=== PATIENT | female | born 2000 | race Hispanic/Latino ===

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

== ENCOUNTER 2018-06-10 15:20 | Emergency (ER) | payer BC ==
[~2018-06-10] VITALS: Ht 160 cm; Wt 92.1 kg
--- OUTSIDE RECORDS SUMMARY | 2018-06-10 15:26 | XMS REPORT ---
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 Role Phone Diogenes Peres PCP Diogenes [...] use as directed Dx: e10.65 FreeStyle Ayana [place] miscellaneous misc 09/09/2017 use as directed Dx: e10.65 FreeStyle Ayana Sensor miscellaneous kit 09/20/2017 APPLY SENSOR EVERY 10 DAYS DIRECTED Name Start Date Expiration Date SIG Comments [...] N/A History Of Immunizations Name Date Admin [facility] Name [facility] Code Trade Name Lot# Route Inj Vis Given Vis Pub CVX Tdap 09/21/2010 sanofi pasteur PMC ADACEL [id number] Intramuscular Left Arm 09/21/2010 09/21/2007 115 HepB [...] 09/16/2014 [employer] MSD GARDASIL [id number] Intramuscular Left Deltoid 09/16/2014 06/29/2012 62 Meningococcal 09/16/2014 sanofi pasteur PMC MENACTRA [id number] Intramuscular Right Deltoid 09/16/2014 11/26/2010 114 Influenza 11/25/2014 sanofi pasteur PMC FLUZONE [id number] Intramuscular Left Deltoid 11/25/2014 09/19/2014 141 HPV 11/25/2014 [employer] MSD GARDASIL [id number] Intramuscular Right Deltoid 11/25/2014 06/29/2012 62 HPV 06/11/2015 [employer] MSD GARDASIL [id number] Intramuscular Left Deltoid 06/11/2015 06/29/2012 62 History [...] Group Number Start Date [employer]BS [employer] [facility] [id number] Friday, 2014 History of Encounters Visit Date Visit Type Provider 11/29/2016 Office visit Diogenes Cyrte DO 03/28/2016 Office visit Diogenes Ja DO 02/26/2016 Office visit Diogenes Ja DO 01/13/2016 Office visit Roger Rockwell OIL HEATERMAN 12/21/2015 Office visit Adelita Elliott OIL HEATERMAN 11/23/2015 Nurse visit Diogenes Cyrte DO 10/12/2015 Office visit Diogenes Peres DO 08/31/2015 Nurse visit Diogenes Peres DO 06/11/2015 Office visit Diogenes Peres DO 05/19/2015 Office visit Diogenes Ja DO 03/04/2015 Office visit Diogenes Ja DO 11/25/2014 Office visit Diogenes Peres DO 09/16/2014 Office visit 09/16/2014 Office visit Adelita Elliott OIL HEATERMAN 07/11/2014 Nurse visit Susan Mayo OIL HEATERMAN 04/21/2014 Office visit Diogenes Peres DO 04/11/2014 Nurse visit Diogenes Peres DO 04/04/2014 Office visit Diogenes Ja DO 03/24/2014 Office visit Diogenes Peres DO 03/05/2014 Office visit Adelita Elliott OIL HEATERMAN 02/14/2014 Office visit Randal Beltrán MD 02/04/2014 Office visit Diogenes Peres DO 01/24/2014 [facility] Liz Francisco MD 01/23/2014 Nurse visit Diogenes Peres DO 11/13/2013 Nurse visit Adelita Elliott OIL HEATERMAN 10/07/2013 Office visit Adelita Elliott OIL HEATERMAN 09/30/2013 Office visit Diogenes Peres DO 05/23/2013 Office visit Diogenes Peres DO 04/22/2013 Office visit Diogenes Peres DO 09/25/2012 Office visit Diogenes Peres DO 09/28/2011 Office visit Adelita Elliott OIL HEATERMAN 09/21/2010 Office visit Adelita Elliott OIL HEATERMAN 12/15/2008 Office visit Diogenes Peres DO
--- OUTSIDE RECORDS SUMMARY | 2018-06-10 15:42 | XMS REPORT | Continuity of Care Document ---
Author Organization Unknown Address Unknown Allergies Active Description Code Type Severity Reaction Onset Reported/Identified Relationship to Patient Clinical Status Yes No Known Allergies [id number] N /A N/A Yes No Allergy Information Available [id number] Drug Allergy Unknown N/A 2016 Yes No Known Drug Allergies [id number] Drug Allergy Unknown N/A 09/07/2017 Medications There is no data. Problems Date Dx Coded Attending Type Code Diagnosis Diagnosed By 12/14/2016 VIDA FIGUEROA DO Ot E10.9 TYPE 1 DIABETES MELLITUS WITHOUT COMPLIC 12/14/2016 VIDA FIGUEROA DO Ot F10.129 ALCOHOL ABUSE WITH INTOXICATION, UNSPECI 12/14/2016 VIDA FIGUEROA DO Ot F10.929 ALCOHOL USE, UNSPECIFIED WITH INTOXICATI 12/14/2016 VIDA FIGUEROA DO Ot Z79.4 CONVERTIBLE SOFA BEDSPRING TESTER (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 OF INSULIN 09/07/2017 DELMY LARA MD Ot E10.10 TYPE 1 DIABETES MELLITUS WITH KETOACIDOS 09/07/2017 DELMY LARA MD Ot R11.2 NAUSEA WITH VOMITING, UNSPECIFIED 09/07/2017 DELMY LARA MD Ot R19.7 DIARRHEA, UNSPECIFIED 09/07/2017 DELMY LARA MD Ot Z79.4 CONVERTIBLE SOFA BEDSPRING TESTER (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 OF INSULIN 09/07/2017 DELMY LARA MD Ot Z91.19 PATIENT'S NONCOMPLIANCE W [facility] TR 09/09/2017 DELMY LARA MD Ot E10.10 TYPE 1 DIABETES MELLITUS WITH KETOACIDOS 09/09/2017 DELMY LARA MD Ot R11.2 NAUSEA WITH VOMITING, UNSPECIFIED 09/09/2017 DELMY LARA MD Ot R19.7 DIARRHEA, UNSPECIFIED 09/09/2017 DELMY LARA MD Ot Z79.4 [facility] (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 OF INSULIN 09/09/2017 DELMY LARA MD Ot Z91.19 PATIENT'S NONCOMPLIANCE W [facility] MEDICAL TR 11/11/2017 JESSIE, CHALO Pamela [employer] Ot E10.9 TYPE 1 DIABETES MELLITUS WITHOUT COMPLIC 11/11/2017 JESSIE, CHALO L [employer] Ot N92.6 IRREGULAR MENSTRUATION, UNSPECIFIED 11/11/2017 JESSIE, CHALO L [employer] Ot E10.9 TYPE 1 DIABETES MELLITUS WITHOUT COMPLIC 11/11/2017 JESSIE, CHALO L [employer] Ot N92.6 IRREGULAR MENSTRUATION, UNSPECIFIED 11/22/2017 JESSIE, CHALO L [employer] Ot E10.9 TYPE 1 DIABETES MELLITUS WITHOUT COMPLIC 11/22/2017 JESSIE, CHALO L [employer] Ot N92.6 IRREGULAR MENSTRUATION, UNSPECIFIED Procedures There is no data. Results Test Result Range Complete blood count (CBC) with automated white blood cell (WBC) differential - 12/14/16 01:05 Blood leukocytes automated count (number/volume) 11.4 10*3/uL 4.3-11.0 Blood erythrocytes automated count (number/volume) 5.14 10*6/uL 4.35-5.85 Venous blood hemoglobin measurement (mass/volume) 14.9 g/dL 11.5-16.0 Blood hematocrit (volume fraction) 43 % 35-52 Automated erythrocyte mean corpuscular volume 84 [foz_us] 80-99 Automated erythrocyte mean corpuscular hemoglobin (mass per erythrocyte) 29 pg 25-34 Automated erythrocyte mean corpuscular hemoglobin concentration measurement ( mass/volume) 35 g/dL 32-36 Automated erythrocyte distribution width ratio 12.3 % 10.0-14.5 Automated blood platelet count (count/volume) 412 10*3/uL 130-400 Automated blood platelet mean volume measurement 10.1 [foz_us] 7.4-10.4 Automated blood neutrophils/100 leukocytes 71 % 42-75 Automated blood lymphocytes/100 leukocytes 19 % 12-44 Blood monocytes/100 leukocytes 10 % 0-12 Automated blood eosinophils/100 leukocytes 0 % 0-10 Automated blood basophils/100 leukocytes 0 % 0-10 Blood neutrophils automated count (number/volume) 8.1 10*3 1.8-7.8 Blood lymphocytes automated count (number/volume) 2.1 10*3 1.0-4.0 Blood monocytes automated count (number/volume) 1.1 10*3 0.0-1.0 Automated eosinophil count 0.1 10*3/uL 0.0-0.3 Automated blood basophil count (count/volume) 0.0 10*3/uL 0.0-0.1 Serum or plasma choriogonadotropin ( test) detection - 12/14/16 01:05 Serum or plasma choriogonadotropin ( test) detection NEGATIVE NEGATIVE Comprehensive metabolic panel - 12/14/16 01:05 Serum or plasma sodium measurement (moles/volume) 140 mmol/L 135-145 Serum or plasma potassium measurement (moles/volume) 3.8 mmol/L 3.6-5.0 Serum or plasma chloride measurement (moles/volume) 103 mmol/L 98-107 Carbon dioxide 21 mmol/L 21-32 Serum or plasma anion gap determination (moles/volume) 16 mmol/L 5-14 Serum or plasma urea nitrogen measurement (mass/volume) 8 mg/dL 7-18 Serum or plasma creatinine measurement (mass/volume) 1.21 mg/dL 0.60-1.30 Serum or plasma urea nitrogen/creatinine mass ratio 7 NRG Serum or plasma creatinine measurement with calculation of estimated glomerular filtration rate 58 NRG Serum or plasma glucose measurement (mass/volume) 494 mg/dL 70-105 Serum or plasma calcium measurement (mass/volume) 9.3 mg/dL 8.5-10.1 Serum or plasma total bilirubin measurement (mass/volume) 0.2 mg/dL 0.1-1.0 Serum or plasma alkaline phosphatase measurement (enzymatic activity/volume) 98 U/L 60-350 Serum or plasma aspartate aminotransferase measurement (enzymatic activity/ volume) 13 U/L 5-34 Serum or plasma alanine aminotransferase measurement (enzymatic activity/volume ) 14 U/L 0-55 Serum or plasma protein measurement (mass/volume) 7.7 g/dL 6.4-8.2 Serum or plasma albumin measurement (mass/volume) 3.9 g/dL 3.2-4.5 Serum or plasma amylase measurement (enzymatic activity/volume) - 12/14/16 01: 05 Serum or plasma amylase measurement (enzymatic activity/volume) 71 U /L 25-125 Lipase - 12/14/16 01:05 Lipase 16 U/L 8-78 Serum or plasma ethanol measurement (mass/volume) - 12/14/16 01:05 Serum or plasma ethanol measurement (mass/volume) 176 mg/dL <10 Complete urinalysis with reflex to culture - 12/14/16 01:46 Urine color determination YELLOW NRG Urine clarity determination CLEAR NRG Urine pH measurement by test strip 6 5-9 Specific gravity of urine by test strip 1.010 1.016- 1.022 Urine protein assay by test strip, semi-quantitative NEGATIVE NEGATIVE Urine glucose detection by automated test strip 4+ NEGATIVE Erythrocytes detection in urine sediment by light microscopy NEGATIVE NEGATIVE Urine ketones detection by automated test strip NEGATIVE NEGATIVE Urine nitrite detection by test strip NEGATIVE NEGATIVE Urine total bilirubin detection by test strip NEGATIVE NEGATIVE Urine urobilinogen measurement by automated test strip (mass/volume) NORMAL NORMAL Urine leukocyte esterase detection by dipstick NEGATIVE NEGATIVE Automated urine sediment erythrocyte count by microscopy (number/high power field) NONE NRG Automated urine sediment leukocyte count by microscopy (number/high power field ) NONE NRG Bacteria detection in urine sediment by light microscopy TRACE NRG Squamous epithelial cells detection in urine sediment by light microscopy 5-10 NRG Crystals detection in urine sediment by light microscopy NONE NRG Casts detection in urine sediment by light microscopy NONE NRG Mucus detection in urine sediment by light microscopy NEGATIVE NRG Complete urinalysis with reflex to culture NO NRG Urine drug screening test - 12/14/16 01:46 Urine phencyclidine detection by screening method NEGATIVE NEGATIVE Urine benzodiazepines detection by screening method NEGATIVE NEGATIVE Urine cocaine detection NEGATIVE NEGATIVE Urine amphetamines detection by screening method NEGATIVE NEGATIVE Urine methamphetamine detection by screening method NEGATIVE NEGATIVE Urine cannabinoids detection by screening method NEGATIVE NEGATIVE Urine opiates detection by screening method NEGATIVE NEGATIVE Urine barbiturates detection NEGATIVE NEGATIVE Screening urine tricyclic antidepressants detection NEGATIVE NEGATIVE Urine methadone detection by screening method NEGATIVE NEGATIVE Urine oxycodone detection NEGATIVE NEGATIVE Urine propoxyphene detection NEGATIVE NEGATIVE Capillary blood glucose measurement by glucometer (mass/volume) - 12/14/16 02: 48 Capillary blood glucose measurement by glucometer (mass/volume) 229 mg/dL 70-110 Complete urinalysis with reflex to culture - 09/07/17 19:00 Urine color determination YELLOW NRG Urine clarity determination CLEAR NRG Urine pH measurement by test strip 5 5-9 Specific gravity of urine by test strip 1.015 1.016- 1.022 Urine protein assay by test strip, semi-quantitative NEGATIVE NEGATIVE Urine glucose detection by automated test strip 4+ NEGATIVE Erythrocytes detection in urine sediment by light microscopy NEGATIVE NEGATIVE Urine ketones detection by automated test strip 4+ NEGATIVE Urine nitrite detection by test strip NEGATIVE NEGATIVE Urine total bilirubin detection by test strip NEGATIVE NEGATIVE Urine urobilinogen measurement by automated test strip (mass/volume) NORMAL NORMAL Urine leukocyte esterase detection by dipstick NEGATIVE NEGATIVE Automated urine sediment erythrocyte count by microscopy (number/high power field) NONE NRG Automated urine sediment leukocyte count by microscopy (number/high power field ) NONE NRG Bacteria detection in urine sediment by light microscopy NONE NRG Squamous epithelial cells detection in urine sediment by light microscopy 0-2 NRG Crystals detection in urine sediment by light microscopy NONE NRG Casts detection in urine sediment by light microscopy NONE NRG Mucus detection in urine sediment by light microscopy NEGATIVE NRG Complete urinalysis with reflex to culture NO NRG Urine beta human chorionic gonadotropin (hCG) measurement - 09/07/17 19:00 Urine beta human chorionic gonadotropin (hCG) measurement NEGATIVE NEGATIVE Capillary blood glucose measurement by glucometer (mass/volume) - 09/07/17 19: 06 Capillary blood glucose measurement by glucometer (mass/volume) 580 mg/dL 70-110 Complete blood count (CBC) with automated white blood cell (WBC) differential - 09/07/17 19:35 Blood leukocytes automated count (number/volume) 11.8 10*3/uL 4.3-11.0 Blood erythrocytes automated count (number/volume) 4.62 10*6/uL 4.35-5.85 Venous blood hemoglobin measurement (mass/volume) 14.0 g/dL 11.5-16.0 Blood hematocrit (volume fraction) 41 % 35-52 Automated erythrocyte mean corpuscular volume 88 [foz_us] 80-99 Automated erythrocyte mean corpuscular hemoglobin (mass per erythrocyte) 30 pg 25-34 Automated erythrocyte mean corpuscular hemoglobin concentration measurement ( mass/volume) 34 g/dL 32-36 Automated erythrocyte distribution width ratio 13.1 % 10.0-14.5 Automated blood platelet count (count/volume) 470 10*3/uL 130-400 Automated blood platelet mean volume measurement 10.4 [foz_us] 7.4-10.4 Automated blood neutrophils/100 leukocytes 74 % 42-75 Automated blood lymphocytes/100 leukocytes 22 % 12-44 Blood monocytes/100 leukocytes 4 % 0-12 Automated blood eosinophils/100 leukocytes 0 % 0-10 Automated blood basophils/100 leukocytes 0 % 0-10 Blood neutrophils automated count (number/volume) 8.7 10*3 1.8-7.8 Blood lymphocytes automated count (number/volume) 2.6 10*3 1.0-4.0 Blood monocytes automated count (number/volume) 0.4 10*3 0.0-1.0 Automated eosinophil count 0.0 10*3/uL 0.0-0.3 Automated blood basophil count (count/volume) 0.0 10*3/uL 0.0-0.1 Hemoglobin A1c - 09/07/17 19:35 Blood hemoglobin A1C measurement (mass/volume) 9.9 % 4.0- 5.6 MEAN BLOOD GLUCOSE 237 % <=126 Comprehensive metabolic panel - 09/07/17 20:11 Serum or plasma sodium measurement (moles/volume) 137 mmol/L 135-145 Serum or plasma potassium measurement (moles/volume) 3.5 mmol/L 3.6-5.0 Serum or plasma chloride measurement (moles/volume) 101 mmol/L 98-107 Carbon dioxide 8 mmol/L 21-32 Serum or plasma anion gap determination (moles/volume) 28 mmol/L 5-14 Serum or plasma urea nitrogen measurement (mass/volume) 13 mg/dL 7-18 Serum or plasma creatinine measurement (mass/volume) 1.18 mg/dL 0.60-1.30 Serum or plasma urea nitrogen/creatinine mass ratio 11 NRG Serum or plasma creatinine measurement with calculation of estimated glomerular filtration rate 59 NRG Serum or plasma glucose measurement (mass/volume) 532 mg/dL 70-105 Serum or plasma calcium measurement (mass/volume) 9.6 mg/dL 8.5-10.1 Serum or plasma total bilirubin measurement (mass/volume) 0.5 mg/dL 0.1-1.0 Serum or plasma alkaline phosphatase measurement (enzymatic activity/volume) 88 U/L 40-136 Serum or plasma aspartate aminotransferase measurement (enzymatic activity/ volume) 17 U/L 5-34 Serum or plasma alanine aminotransferase measurement (enzymatic activity/volume ) 18 U/L 0-55 Serum or plasma protein measurement (mass/volume) 7.9 g/dL 6.4-8.2 Serum or plasma albumin measurement (mass/volume) 4.1 g/dL 3.2-4.5 Whole blood basic metabolic panel - 09/07/17 20:11 Serum or plasma sodium measurement (moles/volume) 136 mmol/L 135-145 Serum or plasma potassium measurement (moles/volume) 3.5 mmol/L 3.6-5.0 Serum or plasma chloride measurement (moles/volume) 101 mmol/L 98-107 Serum or plasma urea nitrogen measurement (mass/volume) 13 mg/dL 7-18 Serum or plasma creatinine measurement (mass/volume) 1.14 mg/dL 0.60-1.30 Serum or plasma urea nitrogen/creatinine mass ratio 11 NRG Serum or plasma creatinine measurement with calculation of estimated glomerular filtration rate > NRG Serum or plasma calcium measurement (mass/volume) 9.5 mg/dL 8.5-10.1 Arterial blood gas measurement - 09/07/17 21:04 Blood pCO2 21 mm[Hg] 35-45 Blood pO2 107 mm[Hg] 79-93 Arterial blood bicarbonate measurement (moles/volume) 9 mmol/L 23-27 Arterial blood base excess by calculation -16.8 mmol/L - 2.5-2.5 Arterial blood oxygen saturation measurement 99 % 94-100 * Inhaled oxygen flow rate ROOM AIR NRG Arterial blood pH measurement with patient temperature correction 7.26 7.37-7.43 Arterial blood carbon dioxide, total measurement (moles/volume) 9.8 mmol/L 21.0-31.0 Body site RIGHT RADIAL NRG Assessment of wrist artery patency prior to arterial puncture POSITIVE NRG Setting of ventilation mode NO NRG Measurement of body temperature 97.6 NRG Capillary blood glucose measurement by glucometer (mass/volume) - 09/07/17 22: 07 Capillary blood glucose measurement by glucometer (mass/volume) 83 mg/dL 70-110 Whole blood basic metabolic panel - 09/07/17 22:23 Serum or plasma sodium measurement (moles/volume) 142 mmol/L 135-145 Serum or plasma potassium measurement (moles/volume) 3.8 mmol/L 3.6-5.0 Serum or plasma chloride measurement (moles/volume) 107 mmol/L 98-107 Carbon dioxide 17 mmol/L 21-32 Serum or plasma anion gap determination (moles/volume) 18 mmol/L 5-14 Serum or plasma urea nitrogen measurement (mass/volume) 10 mg/dL 7-18 Serum or plasma creatinine measurement (mass/volume) 0.85 mg/dL 0.60-1.30 Serum or plasma urea nitrogen/creatinine mass ratio 12 NRG Serum or plasma creatinine measurement with calculation of estimated glomerular filtration rate > NRG Serum or plasma glucose measurement (mass/volume) 73 mg/dL 70-105 Serum or plasma calcium measurement (mass/volume) 8.7 mg/dL 8.5-10.1 Capillary blood glucose measurement by glucometer (mass/volume) - 09/07/17 22: 23 Capillary blood glucose measurement by glucometer (mass/volume) 71 mg/dL 70-110 Capillary blood glucose measurement by glucometer (mass/volume) - 09/07/17 22: 43 Capillary blood glucose measurement by glucometer (mass/volume) 85 mg/dL 70-110 Capillary blood glucose measurement by glucometer (mass/volume) - 09/08/17 00: 03 Capillary blood glucose measurement by glucometer (mass/volume) 357 mg/dL 70-110 Whole blood basic metabolic panel - 09/08/17 00:40 Serum or plasma sodium measurement (moles/volume) 134 mmol/L 135-145 Serum or plasma potassium measurement (moles/volume) 5.0 mmol/L 3.6-5.0 Serum or plasma chloride measurement (moles/volume) 100 mmol/L 98-107 Carbon dioxide 16 mmol/L 21-32 Serum or plasma anion gap determination (moles/volume) 18 mmol/L 5-14 Serum or plasma urea nitrogen measurement (mass/volume) 12 mg/dL 7-18 Serum or plasma creatinine measurement (mass/volume) 1.05 mg/dL 0.60-1.30 Serum or plasma urea nitrogen/creatinine mass ratio 11 NRG Serum or plasma creatinine measurement with calculation of estimated glomerular filtration rate > NRG Serum or plasma glucose measurement (mass/volume) 468 mg/dL 70-105 Serum or plasma calcium measurement (mass/volume) 8.6 mg/dL 8.5-10.1 Capillary blood glucose measurement by glucometer (mass/volume) - 09/08/17 01: 10 Capillary blood glucose measurement by glucometer (mass/volume) 409 mg/dL 70-110 Capillary blood glucose measurement by glucometer (mass/volume) - 09/08/17 02: 05 Capillary blood glucose measurement by glucometer (mass/volume) 254 mg/dL 70-110 Methicillin resistant Staphylococcus aureus (MRSA) screening culture - 02:20 Methicillin resistant Staphylococcus aureus (MRSA) screening culture NEG NRG Capillary blood glucose measurement by glucometer (mass/volume) - 09/08/17 02: 55 Capillary blood glucose measurement by glucometer (mass/volume) 186 mg/dL 70-110 Capillary blood glucose measurement by glucometer (mass/volume) - 09/08/17 03: 59 Capillary blood glucose measurement by glucometer (mass/volume) 190 mg/dL 70-110 Complete blood count (CBC) with automated white blood cell (WBC) differential - 09/08/17 04:20 Blood leukocytes automated count (number/volume) 10.6 10*3/uL 4.3-11.0 Blood erythrocytes automated count (number/volume) 4.19 10*6/uL 4.35-5.85 Venous blood hemoglobin measurement (mass/volume) 12.1 g/dL 11.5-16.0 Blood hematocrit (volume fraction) 37 % 35-52 Automated erythrocyte mean corpuscular volume 88 [foz_us] 80-99 Automated erythrocyte mean corpuscular hemoglobin (mass per erythrocyte) 29 pg 25-34 Automated erythrocyte mean corpuscular hemoglobin concentration measurement ( mass/volume) 33 g/dL 32-36 Automated erythrocyte distribution width ratio 13.3 % 10.0-14.5 Automated blood platelet count (count/volume) 450 10*3/uL 130-400 Automated blood platelet mean volume measurement 9.4 [foz_us] 7.4-10.4 Automated blood neutrophils/100 leukocytes 59 % 42-75 Automated blood lymphocytes/100 leukocytes 33 % 12-44 Blood monocytes/100 leukocytes 8 % 0-12 Automated blood eosinophils/100 leukocytes 0 % 0-10 Automated blood basophils/100 leukocytes 0 % 0-10 Blood neutrophils automated count (number/volume) 6.2 10*3 1.8-7.8 Blood lymphocytes automated count (number/volume) 3.5 10*3 1.0-4.0 Blood monocytes automated count (number/volume) 0.8 10*3 0.0-1.0 Automated eosinophil count 0.0 10*3/uL 0.0-0.3 Automated blood basophil count (count/volume) 0.0 10*3/uL 0.0-0.1 Comprehensive metabolic panel - 09/08/17 04:20 Serum or plasma sodium measurement (moles/volume) 135 mmol/L 135-145 Serum or plasma potassium measurement (moles/volume) 4.6 mmol/L 3.6-5.0 Serum or plasma chloride measurement (moles/volume) 106 mmol/L 98-107 Carbon dioxide 18 mmol/L 21-32 Serum or plasma anion gap determination (moles/volume) 11 mmol/L 5-14 Serum or plasma urea nitrogen measurement (mass/volume) 11 mg/dL 7-18 Serum or plasma creatinine measurement (mass/volume) 0.87 mg/dL 0.60-1.30 Serum or plasma urea nitrogen/creatinine mass ratio 13 NRG Serum or plasma creatinine measurement with calculation of estimated glomerular filtration rate > NRG Serum or plasma glucose measurement (mass/volume) 195 mg/dL 70-105 Serum or plasma calcium measurement (mass/volume) 8.8 mg/dL 8.5-10.1 Serum or plasma total bilirubin measurement (mass/volume) 0.2 mg/dL 0.1-1.0 Serum or plasma alkaline phosphatase measurement (enzymatic activity/volume) 68 U/L 40-136 Serum or plasma aspartate aminotransferase measurement (enzymatic activity/ volume) 14 U/L 5-34 Serum or plasma alanine aminotransferase measurement (enzymatic activity/volume ) 11 U/L 0-55 Serum or plasma protein measurement (mass/volume) 6.0 g/dL 6.4-8.2 Serum or plasma albumin measurement (mass/volume) 3.2 g/dL 3.2-4.5 Serum or plasma phosphate measurement (mass/volume) - 09/08/17 04:20 Serum or plasma phosphate measurement (mass/volume) 2.0 mg/dL 2.3-4.7 Magnesium - 09/08/17 04:20 Magnesium 1.7 mg/dL 1.8-2.4 Capillary blood glucose measurement by glucometer (mass/volume) - 09/08/17 05: 00 Capillary blood glucose measurement by glucometer (mass/volume) 188 mg/dL 70-110 Capillary blood glucose measurement by glucometer (mass/volume) - 09/08/17 06: 19 Capillary blood glucose measurement by glucometer (mass/volume) 147 mg/dL 70-110 Capillary blood glucose measurement by glucometer (mass/volume) - 09/08/17 06: 47 Capillary blood glucose measurement by glucometer (mass/volume) 154 mg/dL 70-110 Capillary blood glucose measurement by glucometer (mass/volume) - 09/08/17 07: 50 Capillary blood glucose measurement by glucometer (mass/volume) 228 mg/dL 70-110 Capillary blood glucose measurement by glucometer (mass/volume) - 09/08/17 09: 27 Capillary blood glucose measurement by glucometer (mass/volume) 218 mg/dL 70-110 Capillary blood glucose measurement by glucometer (mass/volume) - 09/08/17 10: 51 Capillary blood glucose measurement by glucometer (mass/volume) 345 mg/dL 70-110 Whole blood basic metabolic panel - 09/08/17 12:17 Serum or plasma sodium measurement (moles/volume) 136 mmol/L 135-145 Serum or plasma potassium measurement (moles/volume) 4.1 mmol/L 3.6-5.0 Serum or plasma chloride measurement (moles/volume) 105 mmol/L 98-107 Carbon dioxide 18 mmol/L 21-32 Serum or plasma anion gap determination (moles/volume) 13 mmol/L 5-14 Serum or plasma urea nitrogen measurement (mass/volume) 8 mg/dL 7-18 Serum or plasma creatinine measurement (mass/volume) 0.92 mg/dL 0.60-1.30 Serum or plasma urea nitrogen/creatinine mass ratio 9 NRG Serum or plasma creatinine measurement with calculation of estimated glomerular filtration rate > NRG Serum or plasma glucose measurement (mass/volume) 248 mg/dL 70-105 Serum or plasma calcium measurement (mass/volume) 8.9 mg/dL 8.5-10.1 Capillary blood glucose measurement by glucometer (mass/volume) - 09/08/17 15: 49 Capillary blood glucose measurement by glucometer (mass/volume) 233 mg/dL 70-110 Capillary blood glucose measurement by glucometer (mass/volume) - 09/08/17 19: 01 Capillary blood glucose measurement by glucometer (mass/volume) 52 mg/dL 70-110 Capillary blood glucose measurement by glucometer (mass/volume) - 09/08/17 20: 13 Capillary blood glucose measurement by glucometer (mass/volume) 196 mg/dL 70-110 Complete blood count (CBC) with automated white blood cell (WBC) differential - 09/09/17 03:15 Blood leukocytes automated count (number/volume) 7.4 10*3/uL 4.3-11.0 Blood erythrocytes automated count (number/volume) 4.24 10*6/uL 4.35-5.85 Venous blood hemoglobin measurement (mass/volume) 12.9 g/dL 11.5-16.0 Blood hematocrit (volume fraction) 38 % 35-52 Automated erythrocyte mean corpuscular volume 89 [foz_us] 80-99 Automated erythrocyte mean corpuscular hemoglobin (mass per erythrocyte) 30 pg 25-34 Automated erythrocyte mean corpuscular hemoglobin concentration measurement ( mass/volume) 34 g/dL 32-36 Automated erythrocyte distribution width ratio 13.1 % 10.0-14.5 Automated blood platelet count (count/volume) 382 10*3/uL 130-400 Automated blood platelet mean volume measurement 9.7 [foz_us] 7.4-10.4 Automated blood neutrophils/100 leukocytes 46 % 42-75 Automated blood lymphocytes/100 leukocytes 45 % 12-44 Blood monocytes/100 leukocytes 8 % 0-12 Automated blood eosinophils/100 leukocytes 1 % 0-10 Automated blood basophils/100 leukocytes 0 % 0-10 Blood neutrophils automated count (number/volume) 3.4 10*3 1.8-7.8 Blood lymphocytes automated count (number/volume) 3.3 10*3 1.0-4.0 Blood monocytes automated count (number/volume) 0.6 10*3 0.0-1.0 Automated eosinophil count 0.1 10*3/uL 0.0-0.3 Automated blood basophil count (count/volume) 0.0 10*3/uL 0.0-0.1 Whole blood basic metabolic panel - 09/09/17 03:15 Serum or plasma sodium measurement (moles/volume) 136 mmol/L 135-145 Serum or plasma potassium measurement (moles/volume) 4.2 mmol/L 3.6-5.0 Serum or plasma chloride measurement (moles/volume) 105 mmol/L 98-107 Carbon dioxide 20 mmol/L 21-32 Serum or plasma anion gap determination (moles/volume) 11 mmol/L 5-14 Serum or plasma urea nitrogen measurement (mass/volume) 10 mg/dL 7-18 Serum or plasma creatinine measurement (mass/volume) 0.79 mg/dL 0.60-1.30 Serum or plasma urea nitrogen/creatinine mass ratio 13 NRG Serum or plasma creatinine measurement with calculation of estimated glomerular filtration rate > NRG Serum or plasma glucose measurement (mass/volume) 305 mg/dL 70-105 Serum or plasma calcium measurement (mass/volume) 9.1 mg/dL 8.5-10.1 Serum or plasma phosphate measurement (mass/volume) - 09/09/17 03:15 Serum or plasma phosphate measurement (mass/volume) 3.0 mg/dL 2.3-4.7 Magnesium - 09/09/17 03:15 Magnesium 1.7 mg/dL 1.8-2.4 Capillary blood glucose measurement by glucometer (mass/volume) - 09/09/17 12: 26 Capillary blood glucose measurement by glucometer (mass/volume) 278 mg/dL 70-110 Complete blood count (CBC) with automated white blood cell (WBC) differential - 11/10/17 17:45 Blood leukocytes automated count (number/volume) 6.6 10*3/uL 4.3-11.0 Blood erythrocytes automated count (number/volume) 4.59 10*6/uL 4.35-5.85 Venous blood hemoglobin measurement (mass/volume) 13.8 g/dL 11.5-16.0 Blood hematocrit (volume fraction) 40 % 35-52 Automated erythrocyte mean corpuscular volume 86 [foz_us] 80-99 Automated erythrocyte mean corpuscular hemoglobin (mass per erythrocyte) 30 pg 25-34 Automated erythrocyte mean corpuscular hemoglobin concentration measurement ( mass/volume) 35 g/dL 32-36 Automated erythrocyte distribution width ratio 12.6 % 10.0-14.5 Automated blood platelet count (count/volume) 349 10*3/uL 130-400 Automated blood platelet mean volume measurement 9.8 [foz_us] 7.4-10.4 Automated blood neutrophils/100 leukocytes 47 % 42-75 Automated blood lymphocytes/100 leukocytes 45 % 12-44 Blood monocytes/100 leukocytes 6 % 0-12 Automated blood eosinophils/100 leukocytes 2 % 0-10 Automated blood basophils/100 leukocytes 1 % 0-10 Blood neutrophils automated count (number/volume) 3.1 10*3 1.8-7.8 Blood lymphocytes automated count (number/volume) 3.0 10*3 1.0-4.0 Blood monocytes automated count (number/volume) 0.4 10*3 0.0-1.0 Automated eosinophil count 0.1 10*3/uL 0.0-0.3 Automated blood basophil count (count/volume) 0.0 10*3/uL 0.0-0.1 PT panel in platelet poor plasma by coagulation assay - 11/10/17 17:45 Prothrombin time (PT) in platelet poor plasma by coagulation assay 12.9 s 12.2-14.7 INR in platelet poor plasma or blood by coagulation assay 1.0 0.8-1.4 Serum or plasma choriogonadotropin ( test) detection - 11/10/17 17:45 Serum or plasma choriogonadotropin ( test) detection NEGATIVE NEGATIVE Comprehensive metabolic panel - 11/10/17 17:45 Serum or plasma sodium measurement (moles/volume) 134 mmol/L 135-145 Serum or plasma potassium measurement (moles/volume) 4.4 mmol/L 3.6-5.0 Serum or plasma chloride measurement (moles/volume) 102 mmol/L 98-107 Carbon dioxide 21 mmol/L 21-32 Serum or plasma anion gap determination (moles/volume) 11 mmol/L 5-14 Serum or plasma urea nitrogen measurement (mass/volume) 13 mg/dL 7-18 Serum or plasma creatinine measurement (mass/volume) 0.97 mg/dL 0.60-1.30 Serum or plasma urea nitrogen/creatinine mass ratio 13 NRG Serum or plasma creatinine measurement with calculation of estimated glomerular filtration rate > NRG Serum or plasma glucose measurement (mass/volume) 395 mg/dL 70-105 Serum or plasma calcium measurement (mass/volume) 9.5 mg/dL 8.5-10.1 Serum or plasma total bilirubin measurement (mass/volume) 0.3 mg/dL 0.1-1.0 Serum or plasma alkaline phosphatase measurement (enzymatic activity/volume) 90 U/L 40-136 Serum or plasma aspartate aminotransferase measurement (enzymatic activity/ volume) 16 U/L 5-34 Serum or plasma alanine aminotransferase measurement (enzymatic activity/volume ) 13 U/L 0-55 Serum or plasma protein measurement (mass/volume) 7.2 g/dL 6.4-8.2 Serum or plasma albumin measurement (mass/volume) 3.7 g/dL 3.2-4.5 CALCIUM CORRECTED 9.7 mg/dL 8.5-10.1 Encounters ACCT No. Visit Date/Time Discharge Status Pt. Type Provider Facility Loc./Unit Complaint [id number] 11/29/2016 15:40:04 11/29/2016 23:59:59 [facility] Outpatient Diogenes Peres [id number] 03/28/2016 14:28:53 03/28/2016 23:59:59 [facility] Outpatient JaDiogenes jones [id number] 02/26/2016 10:58:53 02/26/2016 23:59:59 CLS Outpatient JaDiogenes jones [id number] 01/13/2016 18:11:42 01/13/2016 23:59:59 CLS Outpatient Luli Roger [id number] 11/23/2015 15:58:20 11/23/2015 23:59:59 CLS Outpatient JaDiogenes jones [id number] 10/12/2015 16:24:53 10/12/2015 23:59:59 CLS Outpatient JaDiogenes jones [id number] 08/31/2015 14:55:49 08/31/2015 23:59:59 CLS Outpatient JaDiogenes jones [id number] 03/04/2015 11:11:42 03/04/2015 23:59:59 CLS Outpatient Diogenes Peres [id number] 11/25/2014 14:22:07 11/25/2014 23:59:59 CLS Outpatient JaDiogenes jones [id number] 09/22/2014 22:31:06 09/22/2014 23:59:59 CLS Outpatient Adelita Elliott [id number] 09/22/2014 21:44:45 09/22/2014 23:59:59 CLS Outpatient Susan Mayo [id number] 03/24/2014 16:15:21 03/24/2014 23:59:59 CLS Outpatient JaDiogenes jones [id number] 03/05/2014 16:24:57 03/05/2014 23:59:59 CLS Outpatient Adelita Elliott [id number] 02/14/2014 11:18:21 02/14/2014 23:59:59 CLS Outpatient Randal Beltrán [id number] 02/04/2014 15:12:25 02/04/2014 23:59:59 CLS Outpatient JaDiogenes jones [id number] 01/30/2014 14:09:17 01/30/2014 23:59:59 CLS Outpatient Liz Francisco [id number] 01/23/2014 16:44:11 01/23/2014 23:59:59 CLS Outpatient Diogenes Peres [id number] 11/13/2013 12:15:00 11/13/2013 23:59:59 CLS Outpatient Adelita Elliott [id number] 10/07/2013 16:32:52 10/07/2013 23:59:59 CLS Outpatient Adelita Elliott [id number] 09/30/2013 16:32:10 09/30/2013 23:59:59 CLS Outpatient Diogenes Peres [id number] 05/23/2013 09:49:43 05/23/2013 23:59:59 CLS Outpatient Diogenes Peres [id number] 04/22/2013 10:43:27 04/22/2013 23:59:59 CLS Outpatient Diogenes Peres [id number] 11/10/2017 17:19:00 11/10/2017 23:59:59 CLS Outpatient CHALO ROMAN APRN [facility] RAD E10.8,PELVIC PAIN, VAGINAL BLEEDING [id number] 09/07/2017 21:49:00 09/09/2017 13:15:00 DIS Inpatient MARCO BARKLEY, DELMY King [facility] ICU TYPE 1 DM, DKA, N/V [id number] 12/14/2016 01:06:00 12/14/2016 03:24:00 DIS Emergency VIDA FIGUEROA DO [facility] ER ETOH [id number] 05/11/2017 20:31:20 Document Registration [id number] 05/10/2017 18:14:13 Document Registration [id number] 05/10/2017 18:03:46 Document Registration
[2018-06-10] MEDS ORDERED: NS IV 1000 ML 1,000 ML IV SCH ×2 (15:45→16:45)
[2018-06-10] MEDS ORDERED: ONDANSETRON 4 MG/2 ML (SDV) Z0FRAN IVP ONE (15:45)
[2018-06-10 15:49] LABS: BASOPHILS # (AUTO) 0.1 10^3/uL (0.0-0.1); BASOPHILS % (AUTO) 1 % (0-10); EOSINOPHILS % (AUTO) 0 % (0-10); HEMATOCRIT 45 % (35-52); HEMOGLOBIN 15.7 G/DL (11.5-16.0); LYMPHOCYTES # (AUTO) 1.9 X 10^3 (1.0-4.0); LYMPHOCYTES % (AUTO) 18 % (12-44); MEAN CORPUSCULAR HEMOGLOBIN 30 PG (25-34); MEAN CORPUSCULAR HGB CONC 35 G/DL (32-36); MEAN CORPUSCULAR VOLUME 85 FL (80-99); MEAN PLATELET VOLUME 10.8 FL (7.4-10.4); MONOCYTES # (AUTO) 0.3 X 10^3 (0.0-1.0); MONOCYTES % (AUTO) 3 % (0-12); NEUTROPHILS # (AUTO) 8.6 X 10^3 (1.8-7.8); NEUTROPHILS % (AUTO) 79 % (42-75); PLATELET COUNT 383 10^3/uL (130-400); RED CELL DISTRIBUTION WIDTH 12.8 % (10.0-14.5); WHITE BLOOD COUNT 10.9 10^3/uL (4.3-11.0)
[2018-06-10 15:59] LABS: BILIRUBIN,URINE NEGATIVE (NEGATIVE); CLARITY,URINE CLEAR; COLOR,URINE YELLOW; GLUCOSE, URINE (UA) 4+ (NEGATIVE); KETONES,URINE 4+ (NEGATIVE); LEUKOCYTE ESTERASE ,URINE NEGATIVE (NEGATIVE); NITRITE,URINE POSITIVE (NEGATIVE); PH,URINE 5 (5-9); PROTEIN,URINE NEGATIVE (NEGATIVE); UROBILINOGEN,URINE NORMAL (NORMAL)
--- NOTE | 2018-06-10 16:01 | ED General ---
General Chief Complaint: Glucose Problems Stated Complaint: N,V Nursing Triage Note: pt has not felt good for a couple days and started vomiting blood streaks today. pt is a type 1 diabetic. pt states that she has abd pain and nausea. unable to check blood sugar at home Nursing Sepsis Screen: No Definite Risk Source of Information: Patient Exam Limitations: No Limitations History of Present Illness Date Seen by Provider: Jun 10, 2018 Time Seen by Provider: 15:30 Initial Comments 18-year-old female who presents to the emergency room with complaints of nausea and vomiting that started today approximately 2 hours prior to arrival. She reports that last night she did have a heavy night of drinking alcohol. She is a type I diabetic and reports that she has not checked her blood sugars. When her blood sugar was checked on arrival to the emergency room she did self administer 4-5 units of insulin. Timing/Duration: 1-3 Hours Associated Systoms: Nausea/Vomiting Allergies and Home Medications Allergies Coded Allergies: No Known Drug Allergies (Unverified , 09/07/17) Home Medications Citalopram Hydrobromide 40 Mg Tablet, 40 MG PO HS, (Reported) Fexofenadine HCl 180 Mg Tablet, 180 MG PO HS, (Reported) Insulin Aspart 100 Unit/1 Ml Susp, 10-15 UNITS SQ TIDAC, (Reported) Insulin Determir 1,000 Units/10 Ml Soln, 10 UNIT SQ HS Prescribed by: KALEIGH COELHO on 09/09/17 0727 Norgestimate-Ethinyl Estradiol 1 Each Tablet, 1 TAB PO HS, (Reported) Ondansetron HCl 4 Mg Tab, 4 MG PO Q4H PRN for NAUSEA/VOMITING-1ST LINE Prescribed by: CHEL JOSE on 06/10/18 [id number] Patient Home Medication List Home Medication List Reviewed: Yes Review of Systems Review of Systems Constitutional: see HPI; No chills, No fever Gastrointestinal: see HPI, nausea, vomiting All Other Systems Reviewed Negative Unless Noted: Yes Past Krlnsml-Ngowph-Cyavhk Hx Past Med/Social Hx: Reviewed Nursing Past Med/Soc Hx Patient Social History 2nd Hand Smoke Exposure: No Recent Foreign Travel: No Contact w/Someone Who Travel: No Recent Infectious Disease Expo: No Recent Hopitalizations: No Seasonal Allergies Seasonal Allergies: Yes Past Medical History Surgeries: Yes (RIGHT KNEE) Orthopedic Respiratory: No Cardiac: No Neurological: No Female Reproductive Disorders: Denies Genitourinary: No Gastrointestinal: No Musculoskeletal: No Endocrine: Yes Diabetes, Insulin dep HEENT: No Cancer: No Psychosocial: Yes Anxiety, Depression Integumentary: No Blood Disorders: No Family Medical History Reviewed Nursing Family Hx Heart Disease, Diabetes, Hypertension Physical Exam Vital Signs Vital Signs - First Documented 06/10/18 15:27 Temp 98.1 Pulse 134 Resp 20 B/P (MAP) 120/74 (89) Pulse Ox 100 O2 Delivery Room Air Capillary Refill : Less Than 3 Seconds Height, Weight, BMI Height: 5'3.00" Weight: 203lbs. 0.0oz. 92.434899xg; 34.8 BMI Method:Stated General Appearance: No Apparent Distress, WD/WN Respiratory: Chest Non Tender, Lungs Clear, Normal Breath Sounds, No Accessory Muscle Use, No Respiratory Distress Cardiovascular: Regular Rate, Rhythm, No Edema, No Gallop, No JVD, No Murmur, Normal Peripheral Pulses Gastrointestinal: Normal Bowel Sounds, No Organomegaly, No Pulsatile Mass, Non Tender, Soft Neurologic/Psychiatric: Alert, Oriented x3, Normal Mood/Affect Skin: Normal Color, Warm/Dry Progress/Results/Core Measures Suspected Sepsis Recent Fever Within 48 Hours: No Infection Criteria Present: None New/Unexplained Altered Menta: No Sepsis Screen: No Definite Risk SIRS Temperature:98.1 Pulse: 134 Respiratory Rate: 20 Blood Pressure 120 /74 Mean: 89 Results/Orders Lab Results My Orders Medications Given in ED Vital Signs/I&O Capillary Refill : Less Than 3 Seconds Blood Pressure Mean: 89 Progress Note : Time: 17:04 Progress Note I have seen and evaluated the patient. I've informed her of her laboratory and imaging studies. Her nausea has resolved at this time. Her blood sugars have improved. She agrees with plan of care, plans for discharge, return precautions were given. Departure Impression Primary Impression: Type 1 diabetes mellitus Additional Impression: Nausea & vomiting Disposition: 01 HOME, SELF-CARE Condition: Stable/Unchanged Departure-Patient Inst. Decision time for Depature: 17:04 Referrals: [facility] (PCP/Family) Primary Care Physician Patient Instructions: Diabetes Type 1, Adult (DC) Add. Discharge Instructions: Keep a close eye on your blood sugar and no sure insulin appropriately. Clear liquid diet and advance as tolerated. Drink plenty of fluids to stay hydrated. Take medication as directed. Follow-up with primary care provider within 1 week for recheck. All discharge instructions reviewed with patient and/or family. Voiced understanding. Scripts Ondansetron HCl (Zofran) 4 Mg Tab 4 MG PO Q4H PRN for NAUSEA/VOMITING-1ST LINE, #14 TAB Prov: CHEL JOSE 06/10/18 CHEL JOSE Jun 10, 2018 16:01
[2018-06-10 16:05] LABS: BACTERIA,URINE NEGATIVE /HPF; SQUAMOUS EPITHELIAL CELL,UR 0-2 /HPF
[2018-06-10 16:10] LABS: ALANINE AMINOTRANSFERASE 16 U/L (0-55); ALBUMIN 4.5 GM/DL (3.2-4.5); ALKALINE PHOSPHATASE 102 U/L (40-136); AMYLASE 192 U/L (25-125); BILIRUBIN,TOTAL 0.8 MG/DL (0.1-1.0); BUN/CREATININE RATIO 11; CALCIUM 10.5 MG/DL (8.5-10.1); CARBON DIOXIDE 17 MMOL/L (21-32); CHLORIDE 102 MMOL/L (98-107); CREATININE SERUM 1.09 MG/DL (0.60-1.30); GFR ESTIMATED > 60; LIPASE 13 U/L (8-78); POTASSIUM 4.5 MMOL/L (3.6-5.0); SODIUM 144 MMOL/L (135-145); TOTAL PROTEIN 8.1 GM/DL (6.4-8.2)
[2018-06-10 16:20] LABS: GLUCOSE 493 MG/DL (70-105)
[2018-06-10] MEDS ORDERED: ONDN4T PO (17:05)
[2018-06-10 17:57] VITALS: BP 135/92
== END 2018-06-10 17:57 | disposition home or self-care (01) ==
LOC: EDUNIT# 15:20 → ER 15:21
DX: E10.9 Type 1 diabetes mellitus without complications (principal); R11.2 Nausea with vomiting, unspecified; F41.9 Anxiety disorder, unspecified; F32.9 Major depressive disorder, single episode, unspecified; Z79.4 Long term (current) use of insulin; Z82.49 Family history of ischemic heart disease and other diseases of the circulatory system
CPT/HCPCS: 36415; 80053; 81000; 82150; 82962; 83690; 84703; 85025; 87088

== ENCOUNTER 2018-09-14 22:43 | Inpatient (IN) | payer BC ==
[~2018-09-14] VITALS: Ht 157.5 cm; Wt 92.6 kg
[~2018-09-14 22:43] MED LIST changes: +ONDN4T PO
[2018-09-14] MEDS ORDERED: ONDANSETRON 4 MG/2 ML (SDV) Z0FRAN ONE (22:54)
[2018-09-14] MEDS ORDERED: NS IV 1000 ML 1,000 ML ONE (22:54)
[2018-09-14] MEDS ORDERED: inSUlin (REGULAR) HUMAN 1 UNIT/0.01 ML (CHARGE PER UNIT) SC ONE (23:00)
--- OUTSIDE RECORDS SUMMARY | 2018-09-14 23:03 | XMS REPORT | Continuity of Care Document ---
Author Organization Unknown Address Unknown Phone Unavailable Allergies Active Description Code Type Severity Reaction Onset Reported/Identified Relationship to Patient Clinical Status Yes No Allergy Information Available [id number] Drug Allergy Unknown N/A 12/14/2016 Yes No Known Drug Allergies [id number] Drug Allergy Unknown N/A 09/07/2017 Medications There is no data. 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 09/07/2017 DELMY LARA MD Ot E10.10 TYPE 1 DIABETES MELLITUS WITH KETOACIDOS 09/07/2017 DELMY LARA MD Ot R11.2 NAUSEA WITH VOMITING, UNSPECIFIED 09/07/2017 DELMY LARA MD Ot R19.7 DIARRHEA, UNSPECIFIED 09/07/2017 DELMY LARA MD Ot Z79.4 DETENTION (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 OF INSULIN 09/07/2017 DELMY LARA MD Ot Z91.19 PATIENT'S NONCOMPLIANCE W [facility] 09/09/2017 DELMY LARA MD Ot E10.10 TYPE 1 DIABETES MELLITUS WITH KETOACIDOS 09/09/2017 DELMY LARA MD Ot R11.2 NAUSEA WITH VOMITING, UNSPECIFIED 09/09/2017 DELMY LARA MD Ot R19.7 DIARRHEA, UNSPECIFIED 09/09/2017 DELMY LARA MD Ot 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 09/09/2017 DELMY LARA MD Ot Z91.19 PATIENT'S NONCOMPLIANCE W [facility] 11/11/2017 JESSIE, CHALO L [employer]ERILE SUPPLY TECHNICIAN Ot E10.9 TYPE 1 DIABETES MELLITUS WITHOUT COMPLIC 11/11/2017 JESSIE, CHALO L CENTRAL STERILE SUPPLY TECHNICIAN Ot N92.6 IRREGULAR MENSTRUATION, UNSPECIFIED 11/11/2017 JESSIE, CHALO L CENTRAL STERILE SUPPLY TECHNICIAN Ot E10.9 TYPE 1 DIABETES MELLITUS WITHOUT COMPLIC 11/11/2017 JESSIE, CHALO L CENTRAL STERILE SUPPLY TECHNICIAN Ot N92.6 IRREGULAR MENSTRUATION, UNSPECIFIED 11/22/2017 JESSIE, CHALO L CENTRAL STERILE SUPPLY TECHNICIAN Ot E10.9 TYPE 1 DIABETES MELLITUS WITHOUT COMPLIC 11/22/2017 JESSIE, CHALO L [employer]ENTRAL STERILE SUPPLY TECHNICIAN Ot N92.6 IRREGULAR MENSTRUATION, UNSPECIFIED 06/10/2018 BERNOT, CHEL Ot E10.9 TYPE 1 DIABETES MELLITUS WITHOUT COMPLIC 06/10/2018 BERNOT CHEL Ot F32.9 MAJOR DEPRESSIVE DISORDER, SINGLE EPISOD 06/10/2018 BERNOT CHEL Ot F41.9 ANXIETY DISORDER, UNSPECIFIED 06/10/2018 BERNOT, CHEL Ot R11.2 NAUSEA WITH VOMITING, UNSPECIFIED 06/10/2018 BERNOT CHEL Ot Z79.4 DETENTION (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 OF INSULIN 06/10/2018 BERNOT, CHEL Ot Z82.49 FAMILY HX OF ISCHEM HEART DIS AND OTH DI 06/13/2018 BERNLULA NEGRETEIS Ot E10.9 TYPE 1 DIABETES MELLITUS WITHOUT COMPLIC 06/13/2018 LULA JOSEIS Ot F32.9 MAJOR DEPRESSIVE DISORDER, SINGLE EPISOD 06/13/2018 BERNOT CHEL Ot F41.9 ANXIETY DISORDER, UNSPECIFIED 06/13/2018 BERNOT CHEL Ot R11.2 NAUSEA WITH VOMITING, UNSPECIFIED 06/13/2018 BERNOT CHEL Ot Z79.4 DETENTION (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 OF INSULIN 06/13/2018 BERNOT CHEL Ot Z82.49 FAMILY HX OF ISCHEM HEART DIS AND OTH DI Procedures There is no data. Results Test [...] Automated erythrocyte mean corpuscular hemoglobin concentration measurement (mass/volume) 35 g/dL 32-36 Automated erythrocyte distribution width ratio 12.3 % 10.0- 14.5 Automated blood platelet count (count/volume) 412 10*3/uL [...] Blood monocytes automated count (number/volume) 1.1 10*3 0.0- 1.0 Automated eosinophil count 0.1 10*3/uL 0.0-0.3 Automated [...] Serum or plasma aspartate aminotransferase measurement (enzymatic activity/volume) 13 U/L 5-34 Serum or plasma alanine aminotransferase measurement (enzymatic activity/volume) 14 U/L 0-55 Serum or plasma protein measurement (mass/volume) 7.7 g/dL 6.4-8.2 Serum or plasma albumin measurement (mass/volume) 3.9 g/dL 3.2-4.5 Serum or plasma amylase measurement (enzymatic activity/volume) - 12/14/16 01:05 Serum or plasma amylase measurement (enzymatic activity/volume) 71 U/L 25-125 Lipase - 12/14/16 01:05 Lipase 16 U/L 8-78 Serum or plasma ethanol measurement (mass/volume) - 12/14/16 01:05 Serum or plasma ethanol measurement (mass/volume) 176 mg/dL <10 Complete urinalysis with reflex to culture - 12/14/16 01:46 Urine color determination YELLOW NRG Urine clarity determination CLEAR NRG Urine pH measurement by test strip 6 5-9 Specific gravity of urine by test strip 1.010 1.016-1.022 Urine protein assay by test strip, semi-quantitative [...] sediment leukocyte count by microscopy (number/high power field) NONE NRG Bacteria detection in urine sediment [...] glucose measurement by glucometer (mass/volume) - 12/14/16 02:48 Capillary blood glucose measurement by glucometer (mass/volume) 229 mg/dL 70-110 Complete urinalysis with reflex to culture - 09/07/17 19:00 Urine color determination YELLOW NRG Urine clarity determination CLEAR NRG Urine pH measurement by test strip 5 5-9 Specific gravity of urine by test strip 1.015 1.016-1.022 Urine protein assay by test strip, semi-quantitative [...] sediment leukocyte count by microscopy (number/high power field) NONE NRG Bacteria detection in urine sediment [...] glucose measurement by glucometer (mass/volume) - 09/07/17 19:06 Capillary blood glucose measurement by glucometer (mass/volume) [...] Automated erythrocyte mean corpuscular hemoglobin concentration measurement (mass/volume) 34 g/dL 32-36 Automated erythrocyte distribution width ratio 13.1 % 10.0- 14.5 Automated blood platelet count (count/volume) 470 10*3/uL [...] Blood monocytes automated count (number/volume) 0.4 10*3 0.0- 1.0 Automated eosinophil count 0.0 10*3/uL 0.0-0.3 Automated blood basophil count (count/volume) 0.0 10*3/uL 0.0-0.1 Hemoglobin A1c - 09/07/17 19:35 Blood hemoglobin A1C measurement (mass/volume) 9.9 % 4.0-5.6 MEAN BLOOD GLUCOSE 237 % <=126 Comprehensive [...] Serum or plasma aspartate aminotransferase measurement (enzymatic activity/volume) 17 U/L 5-34 Serum or plasma alanine aminotransferase measurement (enzymatic activity/volume) 18 U/L 0-55 Serum or plasma protein [...] blood base excess by calculation -16.8 mmol/L -2.5-2.5 Arterial blood oxygen saturation measurement 99 % [...] glucose measurement by glucometer (mass/volume) - 09/07/17 22:07 Capillary blood glucose measurement by glucometer (mass/volume) [...] glucose measurement by glucometer (mass/volume) - 09/07/17 22:23 Capillary blood glucose measurement by glucometer (mass/volume) 71 mg/dL 70-110 Capillary blood glucose measurement by glucometer (mass/volume) - 09/07/17 22:43 Capillary blood glucose measurement by glucometer (mass/volume) 85 mg/dL 70-110 Capillary blood glucose measurement by glucometer (mass/volume) - 09/08/17 00:03 Capillary blood glucose measurement by glucometer (mass/volume) [...] glucose measurement by glucometer (mass/volume) - 09/08/17 01:10 Capillary blood glucose measurement by glucometer (mass/volume) 409 mg/dL 70-110 Capillary blood glucose measurement by glucometer (mass/volume) - 09/08/17 02:05 Capillary blood glucose measurement by glucometer (mass/volume) 254 mg/dL 70-110 Methicillin resistant Staphylococcus aureus (MRSA) screening culture - 09/08/17 02:20 Methicillin resistant Staphylococcus aureus (MRSA) screening culture NEG NRG Capillary blood glucose measurement by glucometer (mass/volume) - 09/08/17 02:55 Capillary blood glucose measurement by glucometer (mass/volume) 186 mg/dL 70-110 Capillary blood glucose measurement by glucometer (mass/volume) - 09/08/17 03:59 Capillary blood glucose measurement by glucometer (mass/volume) [...] Automated erythrocyte mean corpuscular hemoglobin concentration measurement (mass/volume) 33 g/dL 32-36 Automated erythrocyte distribution width ratio 13.3 % 10.0- 14.5 Automated blood platelet count (count/volume) 450 10*3/uL [...] Blood monocytes automated count (number/volume) 0.8 10*3 0.0- 1.0 Automated eosinophil count 0.0 10*3/uL 0.0-0.3 Automated [...] Serum or plasma aspartate aminotransferase measurement (enzymatic activity/volume) 14 U/L 5-34 Serum or plasma alanine aminotransferase measurement (enzymatic activity/volume) 11 U/L 0-55 Serum or plasma protein measurement (mass/volume) 6.0 g/dL 6.4-8.2 Serum or plasma albumin measurement (mass/volume) 3.2 g/dL 3.2-4.5 Serum or plasma phosphate measurement (mass/volume) - 09/08/17 04:20 Serum or plasma phosphate measurement (mass/volume) 2.0 mg/dL 2.3-4.7 Magnesium - 09/08/17 04:20 Magnesium 1.7 mg/dL 1.8-2.4 Capillary blood glucose measurement by glucometer (mass/volume) - 09/08/17 05:00 Capillary blood glucose measurement by glucometer (mass/volume) 188 mg/dL 70-110 Capillary blood glucose measurement by glucometer (mass/volume) - 09/08/17 06:19 Capillary blood glucose measurement by glucometer (mass/volume) 147 mg/dL 70-110 Capillary blood glucose measurement by glucometer (mass/volume) - 09/08/17 06:47 Capillary blood glucose measurement by glucometer (mass/volume) 154 mg/dL 70-110 Capillary blood glucose measurement by glucometer (mass/volume) - 09/08/17 07:50 Capillary blood glucose measurement by glucometer (mass/volume) 228 mg/dL 70-110 Capillary blood glucose measurement by glucometer (mass/volume) - 09/08/17 09:27 Capillary blood glucose measurement by glucometer (mass/volume) 218 mg/dL 70-110 Capillary blood glucose measurement by glucometer (mass/volume) - 09/08/17 10:51 Capillary blood glucose measurement by glucometer (mass/volume) [...] glucose measurement by glucometer (mass/volume) - 09/08/17 15:49 Capillary blood glucose measurement by glucometer (mass/volume) 233 mg/dL 70-110 Capillary blood glucose measurement by glucometer (mass/volume) - 09/08/17 19:01 Capillary blood glucose measurement by glucometer (mass/volume) 52 mg/dL 70-110 Capillary blood glucose measurement by glucometer (mass/volume) - 09/08/17 20:13 Capillary blood glucose measurement by glucometer (mass/volume) [...] Automated erythrocyte mean corpuscular hemoglobin concentration measurement (mass/volume) 34 g/dL 32-36 Automated erythrocyte distribution width ratio 13.1 % 10.0- 14.5 Automated blood platelet count (count/volume) 382 10*3/uL [...] Blood monocytes automated count (number/volume) 0.6 10*3 0.0- 1.0 Automated eosinophil count 0.1 10*3/uL 0.0-0.3 Automated [...] glucose measurement by glucometer (mass/volume) - 09/09/17 12:26 Capillary blood glucose measurement by glucometer (mass/volume) [...] Automated erythrocyte mean corpuscular hemoglobin concentration measurement (mass/volume) 35 g/dL 32-36 Automated erythrocyte distribution width ratio 12.6 % 10.0- 14.5 Automated blood platelet count (count/volume) 349 10*3/uL [...] Blood monocytes automated count (number/volume) 0.4 10*3 0.0- 1.0 Automated eosinophil count 0.1 10*3/uL 0.0-0.3 Automated [...] Serum or plasma aspartate aminotransferase measurement (enzymatic activity/volume) 16 U/L 5-34 Serum or plasma alanine aminotransferase measurement (enzymatic activity/volume) 13 U/L 0-55 Serum or plasma protein measurement (mass/volume) 7.2 g/dL 6.4-8.2 Serum or plasma albumin measurement (mass/volume) 3.7 g/dL 3.2-4.5 CALCIUM CORRECTED 9.7 mg/dL 8.5-10.1 Capillary blood glucose measurement by glucometer (mass/volume) - 06/10/18 15:32 Capillary blood glucose measurement by glucometer (mass/volume) 406 mg/dL 70-110 Urine beta human chorionic gonadotropin (hCG) measurement - 06/10/18 15:40 Urine beta human chorionic gonadotropin (hCG) measurement NEGATIVE NEGATIVE Complete blood count (CBC) with automated white blood cell (WBC) differential - 06/10/18 15:45 Blood leukocytes automated count (number/volume) 10.9 10*3/uL 4.3-11.0 Blood erythrocytes automated count (number/volume) 5.21 10*6/uL 4.35-5.85 Venous blood hemoglobin measurement (mass/volume) 15.7 g/dL 11.5-16.0 Blood hematocrit (volume fraction) 45 % 35-52 Automated erythrocyte mean corpuscular volume 85 [foz_us] 80-99 Automated erythrocyte mean corpuscular hemoglobin (mass per erythrocyte) 30 pg 25-34 Automated erythrocyte mean corpuscular hemoglobin concentration measurement (mass/volume) 35 g/dL 32-36 Automated erythrocyte distribution width ratio 12.8 % 10.0- 14.5 Automated blood platelet count (count/volume) 383 10*3/uL 130-400 Automated blood platelet mean volume measurement 10.8 [foz_us] 7.4-10.4 Automated blood neutrophils/100 leukocytes 79 % 42-75 Automated blood lymphocytes/100 leukocytes 18 % 12-44 Blood monocytes/100 leukocytes 3 % 0-12 Automated blood eosinophils/100 leukocytes 0 % 0-10 Automated blood basophils/100 leukocytes 1 % 0-10 Blood neutrophils automated count (number/volume) 8.6 10*3 1.8-7.8 Blood lymphocytes automated count (number/volume) 1.9 10*3 1.0-4.0 Blood monocytes automated count (number/volume) 0.3 10*3 0.0- 1.0 Automated eosinophil count 0.0 10*3/uL 0.0-0.3 Automated blood basophil count (count/volume) 0.1 10*3/uL 0.0-0.1 Comprehensive metabolic panel - 06/10/18 15:45 Serum or plasma sodium measurement (moles/volume) 144 mmol/L 135-145 Serum or plasma potassium measurement (moles/volume) 4.5 mmol/L 3.6-5.0 Serum or plasma chloride measurement (moles/volume) 102 mmol/L 98-107 Carbon dioxide 17 mmol/L 21-32 Serum or plasma anion gap determination (moles/volume) 25 mmol/L 5-14 Serum or plasma urea nitrogen measurement (mass/volume) 12 mg/dL 7-18 Serum or plasma creatinine measurement (mass/volume) 1.09 mg/dL 0.60-1.30 Serum or plasma urea nitrogen/creatinine mass ratio 11 NRG Serum or plasma creatinine measurement with calculation of estimated glomerular filtration rate > NRG Serum or plasma glucose measurement (mass/volume) 493 mg/dL 70-105 Serum or plasma calcium measurement (mass/volume) 10.5 mg/dL 8.5-10.1 Serum or plasma total bilirubin measurement (mass/volume) 0.8 mg/dL 0.1-1.0 Serum or plasma alkaline phosphatase measurement (enzymatic activity/volume) 102 U/L 40-136 Serum or plasma aspartate aminotransferase measurement (enzymatic activity/volume) 16 U/L 5-34 Serum or plasma alanine aminotransferase measurement (enzymatic activity/volume) 16 U/L 0-55 Serum or plasma protein measurement (mass/volume) 8.1 g/dL 6.4-8.2 Serum or plasma albumin measurement (mass/volume) 4.5 g/dL 3.2-4.5 CALCIUM CORRECTED 10.1 mg/dL 8.5-10.1 Serum or plasma amylase measurement (enzymatic activity/volume) - 06/10/18 15:45 Serum or plasma amylase measurement (enzymatic activity/volume) 192 U/L 25-125 Lipase - 06/10/18 15:45 Lipase 13 U/L 8-78 Complete urinalysis with reflex to culture - 06/10/18 15:50 Urine color determination YELLOW NRG Urine clarity determination CLEAR NRG Urine pH measurement by test strip 5 5-9 Specific gravity of urine by test strip 1.010 1.016-1.022 Urine protein assay by test strip, semi-quantitative NEGATIVE NEGATIVE Urine glucose detection by automated test strip 4+ NEGATIVE Erythrocytes detection in urine sediment by light microscopy NEGATIVE NEGATIVE Urine ketones detection by automated test strip 4+ NEGATIVE Urine nitrite detection by test strip POSITIVE NEGATIVE Urine total bilirubin detection by test strip NEGATIVE NEGATIVE Urine urobilinogen measurement by automated test strip (mass/volume) NORMAL NORMAL Urine leukocyte esterase detection by dipstick NEGATIVE NEGATIVE Automated urine sediment erythrocyte count by microscopy (number/high power field) NONE NRG Automated urine sediment leukocyte count by microscopy (number/high power field) [HPF] NRG Bacteria detection in urine sediment by light microscopy NEGATIVE NRG Squamous epithelial cells detection in urine sediment by light microscopy 0-2 NRG Crystals detection in urine sediment by light microscopy NONE NRG Casts detection in urine sediment by light microscopy NONE NRG Mucus detection in urine sediment by light microscopy NEGATIVE NRG Complete urinalysis with reflex to culture YES NRG Bacterial urine culture - 06/10/18 15:50 Bacterial urine culture 3 OR MORE NRG COLONY COUNT 80,000 CFU/ML NRG FTX;REPORTABLE SUGGESTING PROBABLE COLLECTION NRG FREE TEXT ENTRY 2 CONTAMINATION WITH SKIN ADRIANA NRG FREE TEXT ENTRY 3 NO SUSCEPTIBILITY PERFORMED NRG Capillary blood glucose measurement by glucometer (mass/volume) - 06/10/18 17:40 Capillary blood glucose measurement by glucometer (mass/volume) 224 mg/dL 70-110 Encounters ACCT No. Visit Date/Time Discharge Status Pt. Type Provider Facility Loc./Unit Complaint [id number] 11/29/2016 15:40:04 11/29/2016 23:59:59 CLS Outpatient Diogenes Peres [id number] 03/28/2016 14:28:53 03/28/2016 23:59:59 CLS Outpatient Diogenes Peres [id number] 02/26/2016 10:58:53 02/26/2016 23:59:59 CLS Outpatient JaDiogenes jones [id number] 01/13/2016 18:11:42 01/13/2016 23:59:59 CLS Outpatient Roger Rockwell [id number] 11/23/2015 15:58:20 11/23/2015 23:59:59 CLS Outpatient JaDiogenes jones [id number] 10/12/2015 16:24:53 10/12/2015 23:59:59 CLS Outpatient Diogenes Peres [id number] 08/31/2015 14:55:49 08/31/2015 23:59:59 CLS Outpatient JaDiogenes jones [id number] 03/04/2015 11:11:42 03/04/2015 23:59:59 CLS Outpatient JaDiogenes jones [id number] 11/25/2014 14:22:07 11/25/2014 23:59:59 CLS Outpatient JaDiogenes jones [id number] 09/22/2014 22:31:06 09/22/2014 23:59:59 CLS Outpatient Adelita Elliott [id number] 09/22/2014 21:44:45 09/22/2014 23:59:59 CLS Outpatient Susan Mayo [id number] 03/24/2014 16:15:21 03/24/2014 23:59:59 CLS Outpatient Diogenes Peres [id number] 03/05/2014 16:24:57 03/05/2014 23:59:59 CLS Outpatient Adelita Elliott [id number] 02/14/2014 11:18:21 02/14/2014 23:59:59 CLS Outpatient Randal Beltrán [id number] 02/04/2014 15:12:25 02/04/2014 23:59:59 CLS Outpatient JaDiogenes jones [id number] 01/30/2014 14:09:17 01/30/2014 23:59:59 CLS Outpatient Liz Francisco [id number] 01/23/2014 16:44:11 01/23/2014 23:59:59 CLS Outpatient Diogenes Peres [id number] 11/13/2013 12:15:00 11/13/2013 23:59:59 CLS Outpatient Adelita Elliott [id number] 10/07/2013 16:32:52 10/07/2013 23:59:59 CLS Outpatient Adelita Elliott [id number] 09/30/2013 16:32:10 09/30/2013 23:59:59 CLS Outpatient Diogenes Peres [id number] 05/23/2013 09:49:43 05/23/2013 23:59:59 CLS Outpatient Diogenes Peres [id number] 04/22/2013 10:43:27 04/22/2013 23:59:59 CLS Outpatient Diogenes Peres [id number] 06/10/2018 15:21:00 06/10/2018 17:57:00 DIS Emergency ARLETHCADENCHEL [facility] ER N,V [id number] 11/10/2017 17:19:00 11/10/2017 23:59:59 CLS Outpatient CHALO ROMAN APRN [facility] RAD E10.8,PELVIC PAIN,VAGINAL BLEEDING [id number] 09/07/2017 21:49:00 09/09/2017 13:15:00 DIS Inpatient MARCO BARKLEY, DELMY King [facility] ICU TYPE 1 DM, DKA, N/V [id number] 12/14/2016 01:06:00 12/14/2016 03:24:00 DIS Emergency VIDA FIGUEROA DO [facility] ER ETOH
[2018-09-14 23:07] LABS: BASOPHILS # (AUTO) 0.1 10^3/uL (0.0-0.1); BASOPHILS % (AUTO) 0 % (0-10); EOSINOPHILS % (AUTO) 0 % (0-10); HEMATOCRIT 45 % (35-52); HEMOGLOBIN 15.2 G/DL (11.5-16.0); LYMPHOCYTES # (AUTO) 2.2 X 10^3 (1.0-4.0); LYMPHOCYTES % (AUTO) 12 % (12-44); MEAN CORPUSCULAR HEMOGLOBIN 30 PG (25-34); MEAN CORPUSCULAR HGB CONC 34 G/DL (32-36); MEAN CORPUSCULAR VOLUME 87 FL (80-99); MEAN PLATELET VOLUME 10.2 FL (7.4-10.4); MONOCYTES # (AUTO) 0.9 X 10^3 (0.0-1.0); MONOCYTES % (AUTO) 5 % (0-12); NEUTROPHILS # (AUTO) 15.1 X 10^3 (1.8-7.8); NEUTROPHILS % (AUTO) 83 % (42-75); PLATELET COUNT 471 10^3/uL (130-400); RED CELL DISTRIBUTION WIDTH 12.5 % (10.0-14.5); WHITE BLOOD COUNT 18.2 10^3/uL (4.3-11.0)
[2018-09-14] MEDS: NS IV 1000 ML 1,000 ML IV SCH (23:08)
--- NOTE | 2018-09-14 23:08 | ED GI ---
General Stated Complaint: HIGH BLOOD SUGAR Source of Information: Patient, Family Exam Limitations: No Limitations History of Present Illness Date Seen by Provider: Sep 14, 2018 Time Seen by Provider: 22:45 Initial Comments Patient presents to the ER by private conveyance with his significant other and chief complaint she's having high blood sugar today. She just changed the site on her pump and checked her blood sugar was over 500 so she oriented to give her another 5 units of insulin and rechecked it and had gone up by 40 units. She didn't start having problems with her blood sugar until she changed the site. She's not having abdominal pain which she is having some nausea vomiting this one time in the ER. Denies having any chest pain shortness of breath cough fevers chills dysuria frequency diarrhea or constipation. No discharge. Allergies and Home Medications Allergies Coded Allergies: No Known Drug Allergies (Unverified , 09/07/17) Home Medications Citalopram Hydrobromide 40 Mg Tablet, 40 MG PO HS, (Reported) Fexofenadine HCl 180 Mg Tablet, 180 MG PO HS, (Reported) Insulin Aspart 100 Unit/1 Ml Susp, 10-15 UNITS SQ TIDAC, (Reported) Insulin Determir 1,000 Units/10 Ml Soln, 10 UNIT SQ HS Prescribed by: KALEIGH MARQUZE on 09/09/17 0727 Norgestimate-Ethinyl Estradiol 1 Each Tablet, 1 TAB PO HS, (Reported) Ondansetron HCl 4 Mg Tab, 4 MG PO Q4H PRN for NAUSEA/VOMITING-1ST LINE Prescribed by: CHEL JOSE on 06/10/18 1705 Patient Home Medication List Home Medication List Reviewed: Yes Review of Systems Review of Systems Constitutional: No chills, No diaphoresis EENTM: No Blurred Vision, No Double Vision Respiratory: Denies Cough, Denies Shortness of Air Cardiovascular: Denies Chest Pain, Denies Edema Gastrointestinal: Denies Constipated, Denies Diarrhea; Nausea, Vomiting Genitourinary: Denies Burning, Denies Drainage, Denies Frequency Musculoskeletal: No back pain, No joint pain Skin: No pruritus, No rash Past Wopouzq-Bxozcd-Igkrrb Hx Patient Social History Alcohol Use: Occasionally Uses Alcohol Beverage of Choice: Rum, Cheap Liquor Recreational Drug Use: Yes Drug of Choice: MJ Smoking Status: Never a Smoker 2nd Hand Smoke Exposure: No Recent Foreign Travel: No Contact w/Someone Who Travel: No Recent Hopitalizations: No Seasonal Allergies Seasonal Allergies: Yes Past Medical History Surgeries: Yes (RIGHT KNEE) Orthopedic Respiratory: No Cardiac: No Neurological: No Female Reproductive Disorders: Denies Genitourinary: No Gastrointestinal: No Musculoskeletal: No Endocrine: Yes Diabetes, Insulin dep HEENT: No Cancer: No Psychosocial: Yes Anxiety, Depression Integumentary: No Blood Disorders: No Family Medical History Heart Disease, Diabetes, Hypertension Physical Exam Vital Signs Vital Signs - First Documented 09/14/18 22:52 Temp 97.0 Pulse 106 Resp 20 B/P (MAP) 129/89 (102) Pulse Ox 100 O2 Delivery Room Air Capillary Refill : Height/Weight/BMI Height: 5'3.00" Weight: 203lbs. 0.0oz. 92.573200us; 34.8 BMI Method:Stated General Appearance: WD/WN, no apparent distress HEENT: PERRL/EOMI, pharynx normal Neck: non-tender, full range of motion, supple, normal inspection Respiratory: chest non-tender, lungs clear, normal breath sounds, no respiratory distress, no accessory muscle use Cardiovascular: normal peripheral pulses, regular rate, rhythm, no edema Gastrointestinal: normal bowel sounds, non tender, soft Neurologic/Psychiatric: alert, normal mood/affect, oriented x 3 Skin: normal color, warm/dry Progress/Results/Core Measures Results/Orders Lab Results Laboratory Tests Test 09/14/18 22:58 09/14/18 23:00 09/14/18 23:42 09/15/18 01:22 Range/Units Glucometer 543 *H 547 *H 70-110 MG/DL White Blood Count 18.2 H 4.3-11.0 10^3/uL Red Blood Count 5.11 4.35-5.85 10^6/uL Hemoglobin 15.2 11.5-16.0 G/DL Hematocrit 45 35-52 % Mean Corpuscular Volume 87 80-99 FL Mean Corpuscular Hemoglobin 30 25-34 PG Mean Corpuscular Hemoglobin Concent 34 32-36 G/DL Red Cell Distribution Width 12.5 10.0-14.5 % Platelet Count 471 H 130-400 10^3/uL Mean Platelet Volume 10.2 7.4-10.4 FL Neutrophils (%) (Auto) 83 H 42-75 % Lymphocytes (%) (Auto) 12 12-44 % Monocytes (%) (Auto) 5 0-12 % Eosinophils (%) (Auto) 0 0-10 % Basophils (%) (Auto) 0 0-10 % Neutrophils # (Auto) 15.1 H 1.8-7.8 X 10^3 Lymphocytes # (Auto) 2.2 1.0-4.0 X 10^3 Monocytes # (Auto) 0.9 0.0-1.0 X 10^3 Eosinophils # (Auto) 0.0 0.0-0.3 10^3/uL Basophils # (Auto) 0.1 0.0-0.1 10^3/uL Neutrophils % (Manual) 75 % Lymphocytes % (Manual) 17 % Monocytes % (Manual) 8 % Sodium Level 137 135-145 MMOL/L Potassium Level 4.6 3.6-5.0 MMOL/L Chloride Level 99 98-107 MMOL/L Carbon Dioxide Level 16 L 21-32 MMOL/L Anion Gap 22 H 5-14 MMOL/L Blood Urea Nitrogen 12 7-18 MG/DL Creatinine 1.28 0.60-1.30 MG/DL Estimat Glomerular Filtration Rate 53 BUN/Creatinine Ratio 9 Glucose Level 613 *H 70-105 MG/DL Calcium Level 10.3 H 8.5-10.1 MG/DL Corrected Calcium 9.9 8.5-10.1 MG/DL Magnesium Level 2.2 1.8-2.4 MG/DL Total Bilirubin 1.1 H 0.1-1.0 MG/DL Aspartate Amino Transf (AST/SGOT) 15 5-34 U/L Alanine Aminotransferase (ALT/SGPT) 15 0-55 U/L Alkaline Phosphatase 148 H 40-136 U/L Total Protein 8.3 H 6.4-8.2 GM/DL Albumin 4.5 3.2-4.5 GM/DL Serum Alcohol < 10 <10 MG/DL Urine Color YELLOW Urine Clarity CLEAR Urine pH 5 5-9 Urine Specific [place] 1.015 L 1.016-1.022 Urine Protein NEGATIVE NEGATIVE Urine Glucose (UA) 4+ H NEGATIVE Urine Ketones 4+ H NEGATIVE Urine Nitrite NEGATIVE NEGATIVE Urine Bilirubin NEGATIVE NEGATIVE Urine Urobilinogen NORMAL NORMAL MG/DL Urine Leukocyte Esterase NEGATIVE NEGATIVE Urine RBC (Auto) NEGATIVE NEGATIVE Urine RBC NONE /HPF Urine WBC RARE /HPF Urine Squamous Epithelial Cells 2-5 /HPF Urine Crystals NONE /LPF Urine Bacteria FEW H /HPF Urine Casts NONE /LPF Urine Mucus NEGATIVE /LPF Urine Culture Indicated NO Urine Test NEGATIVE NEGATIVE My Orders Orders - MADHAVI GEIGER Ondansetron Injection (Zofran Injectio (09/14/18 22:54) Ns Iv 1000 Ml (Sodium Chloride 0.9%) (09/14/18 22:54) Alcohol (09/14/18 22:56) Cbc With Automated Diff (09/14/18 22:56) Comprehensive Metabolic Panel (09/14/18 22:56) Hcg,Qualitative Urine (09/14/18 22:56) Magnesium (09/14/18 22:56) Ua Culture If Indicated (09/14/18 22:56) Ed Iv/Invasive Line Start (09/14/18 22:56) Ns Iv 1000 Ml (Sodium Chloride 0.9%) (09/14/18 22:56) Insulin (Regular) Human (Humulin R (Per (09/14/18 23:00) Manual Differential (09/14/18 23:00) Accucheck Stat ONCE (09/14/18 23:40) Insulin (Regular) Human (Humulin R (Per (09/15/18 00:15) Promethazine Injection (Phenergan Injec (09/15/18 00:15) Promethazine Injection (Phenergan Injec (09/15/18 00:04) Ondansetron Injection (Zofran Injectio (09/15/18 00:30) Accucheck Stat ONCE (09/15/18 01:18) Medications Given in ED Current Medications Medications Dose Ordered Sig/Fatuma Route Start Time Stop Time Status Last Admin Dose Admin Insulin Human Regular 15 unit ONCE ONCE SC 09/15/18 00:15 09/15/18 00:16 DC 09/15/18 00:53 15 UNIT Insulin Human Regular 25 unit ONCE ONCE SC 09/14/18 23:00 09/14/18 23:03 DC 09/14/18 23:13 25 UNIT Ondansetron HCl 8 mg ONCE ONCE IVP 09/15/18 00:30 09/15/18 00:31 DC 09/15/18 00:13 8 MG Promethazine HCl 25 mg ONCE ONCE IVP 09/15/18 00:15 09/15/18 00:16 DC 09/15/18 00:08 25 MG Vital Signs/I&O 09/14/18 22:52 Temp 97.0 Pulse 106 Resp 20 B/P (MAP) 129/89 (102) Pulse Ox 100 O2 Delivery Room Air FSBG Bedside Testing Finger Stick Blood Glucose: 543 Blood Glucose Action Taken: DR AND RN NOTIFIED Progress Progress Note : Time: 23:09 Progress Note Blood sugar is elevated at 543. I suspect that the site, the tubing or the needle for her pump malfunctioning. There are no malfunction codes on the insulin pump itself. She checks her blood sugar with a glucometer and then inputs the number insulin pump manual. Plan on checking labs and urine looking for infection, electrolyte disorders etc. She's having vomiting here in the ER so 8 of Zofran were ordered and 2 L of normal saline. 25 units of regular insulin subcutaneous 1 and we will recheck an Accu-Chek shortly. Departure Communication (Admissions) Time/Spoke to Admitting Phy: 01:50 Discussed case lab imaging with Dr. Marquez she agrees to admit the patient the ICU on insulin drip. Impression Primary Impression: Diabetic ketoacidosis Qualified Codes: E10.10 - Type 1 diabetes mellitus with ketoacidosis without coma Additional Impression: DKA, type 1 Qualified Codes: E10.10 - Type 1 diabetes mellitus with ketoacidosis without coma Disposition: ADMITTED INPATIENT Condition: Critical Admissions Decision to Admit Reason: Admit from ER (General) Decision to Admit/Date: Sep 15, 2018 Time/Decision to Admit Time: 01:45 Departure-Patient Inst. Referrals: ANAI FRANK DO (PCP/Family) Primary Care Physician MADHAVI GEIGER Sep 14, 2018 23:08
[2018-09-14 23:26] LABS: SODIUM 137 MMOL/L (135-145)
[2018-09-14 23:27] LABS: ALANINE AMINOTRANSFERASE 15 U/L (0-55); ALBUMIN 4.5 GM/DL (3.2-4.5); ALKALINE PHOSPHATASE 148 U/L (40-136); BILIRUBIN,TOTAL 1.1 MG/DL (0.1-1.0); BUN/CREATININE RATIO 9; CALCIUM 10.3 MG/DL (8.5-10.1); CARBON DIOXIDE 16 MMOL/L (21-32); CHLORIDE 99 MMOL/L (98-107); CREATININE SERUM 1.28 MG/DL (0.60-1.30); GFR ESTIMATED 53; MAGNESIUM 2.2 MG/DL (1.8-2.4); POTASSIUM 4.6 MMOL/L (3.6-5.0); TOTAL PROTEIN 8.3 GM/DL (6.4-8.2)
[2018-09-14 23:38] LABS: GLUCOSE 613 MG/DL (70-105)
[2018-09-15] VITALS (22 sets, daily range): BP systolic 105–151; BP diastolic 60–108
[2018-09-15] MEDS ORDERED: PROMETHAZINE INJ 25 MG/ML (PHENERGAN) AMP ONE (00:04)
[2018-09-15] MEDS: NS IV 1000 ML 1,000 ML IV SCH (00:08)
[2018-09-15] MEDS ORDERED: inSUlin (REGULAR) HUMAN 1 UNIT/0.01 ML (CHARGE PER UNIT) SC ONE (00:15)
[2018-09-15] MEDS ORDERED: PROMETHAZINE INJ 25 MG/ML (PHENERGAN) AMP IVP ONE (00:15)
[2018-09-15] MEDS ORDERED: ONDANSETRON 4 MG/2 ML (SDV) Z0FRAN IVP ONE (00:30)
[2018-09-15 00:53] LABS: LYMPHOCYTES % (MANUAL) 17 %; MONOCYTES % (MANUAL) 8 %; NEUTROPHILS % (MANUAL) 75 %
[2018-09-15 01:30] LABS: BILIRUBIN,URINE NEGATIVE (NEGATIVE); CLARITY,URINE CLEAR; COLOR,URINE YELLOW; GLUCOSE, URINE (UA) 4+ (NEGATIVE); KETONES,URINE 4+ (NEGATIVE); LEUKOCYTE ESTERASE ,URINE NEGATIVE (NEGATIVE); NITRITE,URINE NEGATIVE (NEGATIVE); PH,URINE 5 (5-9); PROTEIN,URINE NEGATIVE (NEGATIVE); UROBILINOGEN,URINE NORMAL (NORMAL)
[2018-09-15 01:44] LABS: BACTERIA,URINE FEW /HPF; WBC,URINE RARE /HPF
--- OUTSIDE RECORDS SUMMARY | 2018-09-15 02:14 | XMS REPORT | Continuity of Care Document ---
Author Organization Unknown Address Unknown Phone Unavailable Allergies Active Description Code Type Severity Reaction Onset Reported/Identified Relationship to Patient Clinical Status Yes No Allergy Information Available [id number] Drug Allergy Unknown N/A 12/14/2016 Yes No Known Drug Allergies [id number] Drug Allergy Unknown N/A 09/07/2017 Medications There is no data. 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 09/07/2017 DELMY LARA MD Ot E10.10 TYPE 1 DIABETES MELLITUS WITH KETOACIDOS 09/07/2017 DELMY LARA MD Ot R11.2 NAUSEA WITH VOMITING, UNSPECIFIED 09/07/2017 EDLMY LARA MD Ot R19.7 DIARRHEA, UNSPECIFIED 09/07/2017 DELMY LARA MD Ot Z79.4 ALF (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 OF INSULIN 09/07/2017 DELMY LARA MD Ot Z91.19 PATIENT'S NONCOMPLIANCE W [facility] 09/09/2017 DELMY LARA MD Ot E10.10 TYPE 1 DIABETES MELLITUS WITH KETOACIDOS 09/09/2017 DELMY LARA MD Ot R11.2 NAUSEA WITH VOMITING, UNSPECIFIED 09/09/2017 DELMY LARA MD Ot R19.7 DIARRHEA, UNSPECIFIED 09/09/2017 DELMY LARA MD Ot 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.4 CAMPAIGN MANAGER (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 OF INSULIN 09/09/2017 DELMY LARA MD Ot Z91.19 PATIENT'S NONCOMPLIANCE W [facility] 11/11/2017 JESSIE, CHALO L LOGISTICS TECHNICIAN Ot E10.9 TYPE 1 DIABETES MELLITUS WITHOUT COMPLIC 11/11/2017 JESSIE, CHLAO L LOGISTICS TECHNICIAN Ot N92.6 IRREGULAR MENSTRUATION, UNSPECIFIED 11/11/2017 JESSIE, CHALO L LOGISTICS TECHNICIAN Ot E10.9 TYPE 1 DIABETES MELLITUS WITHOUT COMPLIC 11/11/2017 JESSIE, CHALO L LOGISTICS TECHNICIAN Ot N92.6 IRREGULAR MENSTRUATION, UNSPECIFIED 11/22/2017 JESSIE, CHALO L LOGISTICS TECHNICIAN Ot E10.9 TYPE 1 DIABETES MELLITUS WITHOUT COMPLIC 11/22/2017 JESSIE, CHALO L LOGISTICS TECHNICIAN Ot N92.6 IRREGULAR MENSTRUATION, UNSPECIFIED 06/10/2018 BERNOT, CHEL Ot E10.9 TYPE 1 DIABETES MELLITUS WITHOUT COMPLIC 06/10/2018 BERNOT CHEL Ot F32.9 MAJOR DEPRESSIVE DISORDER, SINGLE EPISOD 06/10/2018 BERNOT CHEL Ot F41.9 ANXIETY DISORDER, UNSPECIFIED 06/10/2018 BERNOT, CHEL Ot R11.2 NAUSEA WITH VOMITING, UNSPECIFIED 06/10/2018 BERNOT CHEL Ot Z79.4 ALF (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 OF INSULIN 06/10/2018 BERNOT, CHEL Ot Z82.49 FAMILY HX OF ISCHEM HEART DIS AND OTH DI 06/13/2018 BERNLULA NEGRETEIS Ot E10.9 TYPE 1 DIABETES MELLITUS WITHOUT COMPLIC 06/13/2018 LULA JOSEIS Ot F32.9 MAJOR DEPRESSIVE DISORDER, SINGLE EPISOD 06/13/2018 BERNOT CHEL Ot F41.9 ANXIETY DISORDER, UNSPECIFIED 06/13/2018 BERNOT CHEL Ot R11.2 NAUSEA WITH VOMITING, UNSPECIFIED 06/13/2018 BERNOT CHEL Ot Z79.4 ALF (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 OF INSULIN 06/13/2018 BERNOT CHEL [...] Status Pt. Type Provider Facility Loc./Unit Complaint [id number] 11/29/2016 15:40:04 11/29/2016 23:59:59 CLS Outpatient Diogenes Peres [id number] 03/28/2016 14:28:53 03/28/2016 23:59:59 CLS Outpatient Diogenes Peres [id number] 02/26/2016 10:58:53 02/26/2016 23:59:59 CLS Outpatient JaDiogenes jones [id number] 01/13/2016 18:11:42 01/13/2016 23:59:59 CLS Outpatient Roger Rockwell [id number] 11/23/2015 15:58:20 11/23/2015 23:59:59 CLS Outpatient JaDiogenes jones [id number] 10/12/2015 16:24:53 10/12/2015 23:59:59 CLS Outpatient Diogenes Peres [id number] 08/31/2015 14:55:49 08/31/2015 23:59:59 CLS Outpatient JaDiogenes jones [id number] 03/04/2015 11:11:42 03/04/2015 23:59:59 CLS Outpatient JaDiogenes jones [id number] 11/25/2014 14:22:07 11/25/2014 23:59:59 CLS Outpatient JaDiogenes jones [id number] 09/22/2014 22:31:06 09/22/2014 23:59:59 CLS Outpatient Adelita Elliott [id number] 09/22/2014 21:44:45 09/22/2014 23:59:59 CLS Outpatient Susan Mayo [id number] 03/24/2014 16:15:21 03/24/2014 23:59:59 CLS Outpatient Diogenes Peres [id number] 03/05/2014 16:24:57 03/05/2014 23:59:59 CLS Outpatient Adelita Elliott [id number] 02/14/2014 11:18:21 02/14/2014 23:59:59 CLS Outpatient Randal Beltrán [id number] 02/04/2014 15:12:25 02/04/2014 23:59:59 CLS Outpatient JaDiogenes jones [id number] 01/30/2014 14:09:17 01/30/2014 23:59:59 CLS Outpatient Liz Francisco [id number] 01/23/2014 16:44:11 01/23/2014 23:59:59 CLS Outpatient Diogenes Peres [id number] 11/13/2013 12:15:00 11/13/2013 23:59:59 CLS Outpatient Adelita Elliott [id number] 10/07/2013 16:32:52 10/07/2013 23:59:59 CLS Outpatient Adelita Elliott [id number] 09/30/2013 16:32:10 09/30/2013 23:59:59 CLS Outpatient Diogenes Peres [id number] 05/23/2013 09:49:43 05/23/2013 23:59:59 CLS Outpatient Diogenes Peres [id number] 04/22/2013 10:43:27 04/22/2013 23:59:59 CLS Outpatient Diogenes Peres [id number] 06/10/2018 15:21:00 06/10/2018 17:57:00 DIS Emergency ARLETHCADENCHEL [facility] ER N,V [id number] 11/10/2017 17:19:00 11/10/2017 23:59:59 CLS Outpatient CHALO ROMAN APRN [facility] RAD E10.8,PELVIC PAIN,VAGINAL BLEEDING [id number] 09/07/2017 21:49:00 09/09/2017 13:15:00 DIS Inpatient MARCO BARKLEY, DELMY King [facility] ICU TYPE 1 DM, DKA, N/V [id number] 12/14/2016 01:06:00 12/14/2016 03:24:00 DIS Emergency VIDA FIGUEROA DO [facility] ER ETOH
[2018-09-15] MEDS ORDERED: ONDANSETRON 4 MG/2 ML (SDV) Z0FRAN IV PRN (02:45)
[2018-09-15] MEDS ORDERED: 1/2 NS IV SOLUTION 1,000 ML IV SCH (02:45)
[2018-09-15] MEDS ORDERED: REGULAR inSUlin DRIP 250 UNITS/NS 250 ML IV SCH ×2 (02:45)
[2018-09-15] MEDS ORDERED: NS IV 1000 ML X 1 WIDE OPEN IV ONE (02:45)
[2018-09-15] MEDS ORDERED: DEXTROSE 10% IV SOLUTION 1,000 ML IV SCH (02:45)
[2018-09-15] MEDS ORDERED: D5 1/2 NS IV 1,000 ML IV SCH (02:45)
[2018-09-15] MEDS ORDERED: ACETAMINOPHEN 500 MG TAB (TYLENOL) PO PRN (02:45)
[2018-09-15] MEDS ORDERED: PROMETHAZINE INJ 25 MG/ML (PHENERGAN) AMP IV PRN (02:45)
[2018-09-15] MEDS ORDERED: CATHETER FLUSH 10 ML SYR IV PRN (03:00)
--- NOTE | 2018-09-15 03:00 | NUR ---
At 0245 this RN notified EICU of pt's blood sugar of 141. New orders received at this time to hold insulin gtt, start NS bolus and D10W for 30 min and then recheck blood sugar.
[2018-09-15 03:33] LABS: BASOPHILS % (AUTO) 0 % (0-10); EOSINOPHILS % (AUTO) 0 % (0-10); HEMATOCRIT 39 % (35-52); HEMOGLOBIN 13.4 G/DL (11.5-16.0); LYMPHOCYTES # (AUTO) 1.9 X 10^3 (1.0-4.0); LYMPHOCYTES % (AUTO) 13 % (12-44); MEAN CORPUSCULAR HEMOGLOBIN 30 PG (25-34); MEAN CORPUSCULAR HGB CONC 34 G/DL (32-36); MEAN CORPUSCULAR VOLUME 87 FL (80-99); MEAN PLATELET VOLUME 9.4 FL (7.4-10.4); MONOCYTES # (AUTO) 0.9 X 10^3 (0.0-1.0); MONOCYTES % (AUTO) 6 % (0-12); NEUTROPHILS # (AUTO) 12.3 X 10^3 (1.8-7.8); NEUTROPHILS % (AUTO) 81 % (42-75); PLATELET COUNT 386 10^3/uL (130-400); RED CELL DISTRIBUTION WIDTH 12.4 % (10.0-14.5); WHITE BLOOD COUNT 15.2 10^3/uL (4.3-11.0)
[2018-09-15 03:51] LABS: ALANINE AMINOTRANSFERASE 14 U/L (0-55); ALBUMIN 3.8 GM/DL (3.2-4.5); ALKALINE PHOSPHATASE 110 U/L (40-136); BILIRUBIN,TOTAL 0.5 MG/DL (0.1-1.0); BUN/CREATININE RATIO 14; CALCIUM 9.3 MG/DL (8.5-10.1); CARBON DIOXIDE 19 MMOL/L (21-32); CHLORIDE 110 MMOL/L (98-107); CREATININE SERUM 0.79 MG/DL (0.60-1.30); GFR ESTIMATED > 60; GLUCOSE 118 MG/DL (70-105); MAGNESIUM 2.2 MG/DL (1.8-2.4); PHOSPHORUS 2.4 MG/DL (2.3-4.7); POTASSIUM 3.9 MMOL/L (3.6-5.0); SODIUM 141 MMOL/L (135-145); TOTAL PROTEIN 6.9 GM/DL (6.4-8.2)
[2018-09-15] MEDS ORDERED: POTASSIUM CL 10MEQ/50ML IVPB 50 ML IV ONE (04:19)
[2018-09-15] MEDS ORDERED: D5 1/2 NS W/KCL 20 MEQ/L 1,000 ML IV ONE (04:45)
[2018-09-15] MEDS ORDERED: POTASSIUM CL 10MEQ/50ML IVPB 50 ML IV SCH (04:45)
--- NOTE | 2018-09-15 05:37 | NUR ---
Notified EICU of labs: Anion Gap 12, C02 19 and Blood Sugar 100
[2018-09-15] MEDS ORDERED: CATHETER FLUSH 10 ML SYR IV SCH (06:00)
--- NOTE | 2018-09-15 06:06 | Pulmonary Consultation ---
History of Present Illness History of Present Illness Date of Consultation 09/15/18 06:01 Time Seen by Provider: 06:01 Date of Admission History of Present Illness 18yo with hx of IDDM presented to ED secondary to hyperglycemia and nausea. She was found to be in acute DKA. She was placed on DKA protocol and admitted to ICU. She has had similar episodes in the past. PT admits to being a daily smoker. SHe uses a home insulin pump. I am consulted fo ICU management. Allergies and Home Medications Allergies Coded Allergies: No Known Drug Allergies (Unverified , 09/07/17) Home Medications Citalopram Hydrobromide 40 Mg Tablet, 40 MG PO HS, (Reported) Fexofenadine HCl 180 Mg Tablet, 180 MG PO HS, (Reported) Insulin Aspart 100 Unit/1 Ml Susp, 10-15 UNITS SQ TIDAC, (Reported) Insulin Determir 1,000 Units/10 Ml Soln, 10 UNIT SQ HS Prescribed by: KALEIGH COELHO on 09/09/17 0727 Norgestimate-Ethinyl Estradiol 1 Each Tablet, 1 TAB PO HS, (Reported) Ondansetron HCl 4 Mg Tab, 4 MG PO Q4H PRN for NAUSEA/VOMITING-1ST LINE Prescribed by: CHEL JOSE on 06/10/18 1705 Past Vdyagsl-Jgarpz-Juhmdl Hx Patient Social History Alcohol Use: Occasionally Uses Number of Drinks Today: CC Alcohol Beverage of Choice: Rum, Cheap Liquor Recreational Drug Use: Yes Drug of Choice: MJ Smoking Status: Never a Smoker 2nd Hand Smoke Exposure: No Recent Foreign Travel: No Contact w/Someone Who Travel: No Recent Infectious Disease Expo: No Recent Hopitalizations: No Immunizations Up To Date PED Vaccines UTD: Yes Seasonal Allergies Seasonal Allergies: Yes Past Medical History Surgeries: Yes (RIGHT KNEE) Orthopedic Respiratory: No Cardiac: No Neurological: No : No Last Menstrual Period: Sep 05, 2018 Female Reproductive Disorders: Denies Genitourinary: No Gastrointestinal: No Musculoskeletal: No Endocrine: Yes Diabetes, Insulin dep HEENT: No Cancer: No Psychosocial: Yes Anxiety, Depression Integumentary: No Blood Disorders: No Family Medical History Heart Disease, Diabetes, Hypertension Review of Systems Time Seen by Provider: 06:30 Constitutional: No: Fever, Chills, Sweats, Weakness, Malaise, Other Eyes: No: Pain, Vision change, Conjunctivae inflammation, Eyelid inflammation, Other, Redness ENT: No: Ear pain, Ear discharge, Nose pain, Nose discharge, Nose congestion, Mouth pain, Mouth swelling, Throat pain, Throat swelling, Other Respiratory: No: Cough, Dry, Shortness of breath, SOB with excertion, Wheezing, Hemoptysis, Pleuritic Pain, Sputum, Wheezing, Other Cardiovascular: No: Chest Pain, Palpitations, Orthopnea, Paroxysmal Noc. Dyspnea, Edema, Lt Headedness, Other Gastrointestinal: Nausea; No: Vomiting, Abdominal Pain, Diarrhea, Constipation, Melena, Hematochezia, Other Genitourinary: No Dysuria, No Frequency, No Incontinence, No Hematuria, No Retention, No Other Sepsis Event Evaluation Height, Weight, BMI Height: 5'2.00" Weight: 204lbs. 1.0oz. 92.626290td; 37.3 BMI Method:Stated Exam Exam Vital Signs Date Time Temp Pulse Resp B/P (MAP) Pulse Ox O2 Delivery O2 Flow Rate FiO2 09/15/18 05:23 84 15 128/79 (95) 100 Room Air 09/15/18 04:46 95 13 135/97 (110) 99 Room Air 09/15/18 04:30 93 13 140/105 (117) 100 Room Air 09/15/18 04:00 82 12 115/68 (84) 97 Room Air 09/15/18 04:00 97.8 09/15/18 03:30 82 17 107/60 (76) 93 Room Air 09/15/18 03:00 87 18 120/76 (91) 95 Room Air 09/15/18 02:45 90 17 126/79 (95) 96 Room Air 09/15/18 02:30 95 17 130/79 (96) 96 Room Air 09/15/18 02:22 106 17 135/89 (104) 96 Room Air 09/15/18 02:22 97.6 100 11 135/89 (104) 96 Room Air 09/15/18 02:22 106 09/15/18 02:14 97.0 104 20 127/72 (90) 100 Room Air 09/14/18 22:52 97.0 106 20 129/89 (102) 100 Room Air I & O 09/15/18 07:00 Intake Total 2030 ml Output Total 200 ml Balance 1830 ml Height & Weight Height: 5'2.00" Weight: 204lbs. 1.0oz. 92.972232pv; 37.3 BMI Method:Stated General Appearance: No Apparent Distress, WD/WN, Obese HEENT: PERRL/EOMI, Normal ENT Inspection, Pharynx Normal Neck: Full Range of Motion, Non Tender, Supple Respiratory: Chest Non Tender, Lungs Clear, Normal Breath Sounds, No Accessory Muscle Use, No Respiratory Distress Cardiovascular: Regular Rate, Rhythm, No Edema, No JVD, No Murmur Capillary Refill: Less Than 3 Seconds Gastrointestinal: normal bowel sounds, non tender, soft Extremity: Normal Capillary Refill, No Pedal Edema Neurologic/Psychiatric: Alert, Oriented x3 Skin: Normal Color, Warm/Dry Lymphatic: No Adenopathy Results Lab Laboratory Tests 09/14/18 23:00 09/15/18 03:25 Assessment/Plan Assessment/Plan DKA -DKA protocol D/C'd per EICU -Currently Gap is 12 and C02 is 19 -Will recheck labs at 11 to be sure pt does not go back into DKA -Levemir was given per EICU x 12 units -Pt uses home insulin pump obesity tobacco use -education Will sign off once pt is transferred to 4th floor. TRINH VILLALPANDO DO Sep 15, 2018 06:06
[2018-09-15] MEDS ORDERED: LACTATED RINGERS 1,000 ML IV SCH (06:15)
[2018-09-15] MEDS: POTASSIUM CL 10MEQ/50ML IVPB 50 ML IV SCH (07:57)
[2018-09-15] MEDS: KCL 20 MEQ TAB (K-DUR) PO SCH (07:58)
[2018-09-15] MEDS: MAGNESIUM 1 GM/100 ML IVPB 100 ML IV SCH ×2 (07:58→16:35)
--- NOTE | 2018-09-15 09:46 | History & Physical-Hospitalist ---
TRAVIS HIGGINS,MED STUDENT 09/15/18 9:45am: History of Present Illness HPI/Chief Complaint Patient present to ER last night with high blood sugars and nausea. She states that she has IDDMI and recently changed her insulin pump port and was monitoring her sugars and noticed her blood sugar was over 500. she gave herself more insulin before coming into the ER. Patient's normal blood glucose level is mid 200s and below. States that she does not manage insulin well, unsure of insulin pump settings and that her A1c is around 9. She had a similar episode last year Source: patient Exam Limitations: no limitations Date Seen 09/15/18 Time Seen by a Provider: 09:30 Attending Physician Kaleigh Marquez MD PCP Teetee Horvath DO Referring Physician Date of Admission Sep 15, 2018 at 01:25 Home Medications & Allergies Home Medications Reviewed patient Home Medication Reconciliation performed by pharmacy medication reconciliations food equipment service technician and/or nursing. Patients Allergies have been reviewed. Allergies Allergies Coded Allergies fish derived (Verified Allergy, Intermediate, swelling/hives, 09/15/18) Past Llppvyr-Vmiews-Xhzqia Hx Past Med/Social Hx: Reviewed Nursing Past Med/Soc Hx Patient Social History Marrital Status: single Employed/Student: student, full-time Alcohol Use: Occasionally Uses Alcohol Beverage of Choice: Rum, Cheap Liquor Recreational Drug Use: Yes Drug of Choice: MJ 2nd Hand Smoke Exposure: No Recent Foreign Travel: No Contact w/other who traveled: No Recent Hopitalizations: No Recent Infectious Disease Expo: No Immunizations Up To Date Pediatric: Yes Seasonal Allergies Seasonal Allergies: Yes Past Medical History Surgeries: Orthopedic : No Female Reproductive Disorders: Denies Endocrine: Diabetes, Insulin dep Are Your Blood Sugars Over 250: No Psychosocial: Anxiety, Depression History of Blood Disorders: No Family History Heart Disease, Diabetes, Hypertension Mother has hypothyroidism Father has hyperthyroidism sister has hypothyroidism,depression, anxiety half brother peanut and shellfish allergries Review of Systems Constitutional: see HPI, malaise, weakness Respiratory: see HPI Gastrointestinal: no symptoms reported Physical Exam Physical Exam Vital Signs Vital Signs - First Documented 09/14/18 22:52 Temp 97.0 Pulse 106 Resp 20 B/P (MAP) 129/89 (102) Pulse Ox 100 O2 Delivery Room Air Capillary Refill : Less Than 3 Seconds Height, Weight, BMI Height: 5'2.00" Weight: 204lbs. 1.0oz. 92.897208su; 37.3 BMI Method:Stated General Appearance: No Apparent Distress, WD/WN Neck: Non Tender, Supple; No Thyromegaly Respiratory: Chest Non Tender, Lungs Clear, Normal Breath Sounds, No Accessory Muscle Use, No Respiratory Distress Cardiovascular: Regular Rate, Rhythm, No Edema, No Gallop, No JVD, No Murmur, Normal Peripheral Pulses Gastrointestinal: Normal Bowel Sounds, Non Tender, Soft Neurologic/Psychiatric: Alert, Normal Mood/Affect Skin: Normal Color, Warm/Dry Results Results/Procedures Labs Laboratory Tests 09/14/18 23:00 09/15/18 03:25 Patient resulted labs reviewed. Assessment/Plan Admission Diagnosis DKA Admission Status: Observation Assessment and Plan DKA: * fluid resuscitation * received regular insulin; never started on insulin drip * transitioning to detemir * sliding scale SAMARA * resolved with fluid resuscitation Reactive leukocytosis * D/t DKA === not sepsis IDDMI * counseling--> is scheduled to see her trimmer tailer next month FEN/GIPPx * Fluids per DKA protocol * Electrolytes per ICU protocol * Nutritional = diabetic diet * GI PPx = none * PPx = no scd Supervisory-Addendum Brief Verification & Attestation Time: Verification & Attestat.: 11:42 Participated in pt care: history, physical Personally performed: history Care discussed with: Medical Student Procedures: n/a KALEIGH MARQUEZ MD 09/15/18 11:46am: Assessment/Plan Admission Diagnosis Admission Status: Inpatient Order (span 2 midnights) Reason for Inpatient Admission: In ICU on DKA protocol Assessment and Plan Admitted for DKA. A1c pending. transitioning to basal/prandial insulin. If next set of labs without signs of worsening can transfer to the floor. SCDs ordered. Diagnosis/Problems Diagnosis/Problems (1) Diabetic ketoacidosis Status: Acute Qualifiers: Diabetes mellitus type: type 1 Diabetes mellitus complication detail: without coma Qualified Codes: E10.10 - Type 1 diabetes mellitus with ketoacidosis without coma (2) DKA, type 1 Status: Acute Qualifiers: Diabetes mellitus complication detail: without coma Qualified Codes: E10.10 - Type 1 diabetes mellitus with ketoacidosis without coma (3) Prophylactic measure Supervisory-Addendum Brief Verification & Attestation Participated in pt care: MDM Personally performed: exam, MDM, supervision of care Care discussed with: Medical Student Procedures: n/a Results interpretation: Verified all documentation Verification and Attestation of Medical Student E/M Service A medical student performed and documented this service in my presence. I reviewed and verified all information documented by the medical student and made modifications to such information, when appropriate. I personally performed the physical exam and medical decision making. Kaleigh Marquez, Sep 15, 2018,11:46 TRAVIS HIGGINS,MED STUDENT Sep 15, 2018 9:45 am KALEIGH MARQUEZ MD Sep 15, 2018 11:46 am
[2018-09-15 12:27] LABS: BUN/CREATININE RATIO 9; CALCIUM 8.1 MG/DL (8.5-10.1); CARBON DIOXIDE 18 MMOL/L (21-32); CHLORIDE 109 MMOL/L (98-107); CREATININE SERUM 0.89 MG/DL (0.60-1.30); GFR ESTIMATED > 60; GLUCOSE 280 MG/DL (70-105); MAGNESIUM 1.6 MG/DL (1.8-2.4); PHOSPHORUS 2.8 MG/DL (2.3-4.7); POTASSIUM 4.2 MMOL/L (3.6-5.0); SODIUM 137 MMOL/L (135-145)
[2018-09-15] MEDS: inSUlin ASPART (NovoLOG) 1 UNIT/0.01 ML (CHARGE PER UNIT) SC SCH ×3 (12:41→21:07)
[2018-09-15 16:03] LABS: BUN/CREATININE RATIO 11; CALCIUM 7.6 MG/DL (8.5-10.1); CARBON DIOXIDE 15 MMOL/L (21-32); CHLORIDE 113 MMOL/L (98-107); CREATININE SERUM 0.73 MG/DL (0.60-1.30); GFR ESTIMATED > 60; GLUCOSE 184 MG/DL (70-105); POTASSIUM 3.8 MMOL/L (3.6-5.0); SODIUM 139 MMOL/L (135-145)
--- NOTE | 2018-09-15 22:49 | NUR ---
Called report to TATIANA Diaz. Pt will be transferred to room 429
[2018-09-16] MEDS: inSUlin ASPART (NovoLOG) 1 UNIT/0.01 ML (CHARGE PER UNIT) SC SCH ×6 (04:00→20:00)
[2018-09-16 04:03] VITALS: BP 114/79
[2018-09-16] MEDS: KCL 20 MEQ TAB (K-DUR) PO SCH (05:06)
[2018-09-16] MEDS: MAGNESIUM 1 GM/100 ML IVPB 100 ML IV SCH (05:06)
[2018-09-16] MEDS: POTASSIUM CL 10MEQ/50ML IVPB 50 ML IV SCH (05:07)
--- NOTE | 2018-09-16 07:01 | NUR ---
THIS AM LAB WAS UNABLE TO GET LAB DRAW AFTER ATTEMPTS BY 2 DIFFERENT LAB PERSONAL.. PT REFUSED FUTHER ATTEMPTS DR LARA NOTIFIED. PT DENIES C/O
[2018-09-16 08:00] VITALS: BP 140/86
--- NOTE | 2018-09-16 10:41 | Progress Note - Hospitalist ---
Subjective HPI/CC On Admission Date Seen by Provider: Sep 16, 2018 Time Seen by Provider: 11:20 DKA Subjective/Events-last exam Patient states that she is feeling better and is ready to go home. She denies N/V, headache, chest pain, SOB, numbness, tingling, or changes in appetite. Objective Exam Vital Signs Vital Signs Date Time Temp Pulse Resp B/P (MAP) Pulse Ox O2 Delivery O2 Flow Rate FiO2 09/16/18 08:00 97.1 96 19 140/86 (104) 96 Room Air Capillary Refill : Less Than 3 Seconds General Appearance: No Apparent Distress, WD/WN Neck: No Thyromegaly Respiratory: Chest Non Tender, Lungs Clear, Normal Breath Sounds, No Accessory Muscle Use, No Respiratory Distress Cardiovascular: Regular Rate, Rhythm, No Edema, No Gallop, No Murmur, Normal Peripheral Pulses Gastrointestinal: Normal Bowel Sounds, Non Tender, Soft Extremity: Normal Capillary Refill, No Pedal Edema Neurologic/Psychiatric: Alert, Normal Mood/Affect Skin: Normal Color, Warm/Dry Results/Procedures Lab Laboratory Tests 09/15/18 12:00 09/15/18 15:35 09/16/18 11:05 Patient resulted labs reviewed. Assessment/Plan Assessment and Plan Assess & Plan/Chief Complaint DKA resolved * sliding scale; insulin * detemir * NS SAMARA - resolved * resolved with fluid resuscitation Reactive leukocytosis - resolved * D/t DKA === not sepsis IDDMI * counseling--> is scheduled to see her leadership coach next month * A1c pending FEN/GIPPx * Nutritional = diabetic diet * GI PPx = none * PPx = scd Clinical Quality Measures DVT/VTE Risk/Contraindication: Risk Factor Score Per Nursin RFS Level Per Nursing on Admit: 2=Moderate TRAVIS HIGGINS,MED STUDENT Sep 16, 2018 10:41
[2018-09-16 11:17] LABS: HEMOGLOBIN 13.9 G/DL (11.5-16.0); MEAN PLATELET VOLUME 10.1 FL (7.4-10.4); RED CELL DISTRIBUTION WIDTH 12.3 % (10.0-14.5); WHITE BLOOD COUNT 8.6 10^3/uL (4.3-11.0)
[2018-09-16 11:31] LABS: BUN/CREATININE RATIO 7; CALCIUM 9.2 MG/DL (8.5-10.1); CARBON DIOXIDE 17 MMOL/L (21-32); CHLORIDE 102 MMOL/L (98-107); CREATININE SERUM 0.91 MG/DL (0.60-1.30); GFR ESTIMATED > 60; GLUCOSE 349 MG/DL (70-105); MAGNESIUM 1.4 MG/DL (1.8-2.4); PHOSPHORUS 2.3 MG/DL (2.3-4.7); POTASSIUM 4.1 MMOL/L (3.6-5.0); SODIUM 134 MMOL/L (135-145)
[2018-09-16] MEDS ORDERED: VILA20TA PO (13:21)
[2018-09-16 15:52] VITALS: BP 124/76
[2018-09-16 17:33] LABS: BUN/CREATININE RATIO 10; CALCIUM 9.3 MG/DL (8.5-10.1); CARBON DIOXIDE 17 MMOL/L (21-32); CHLORIDE 104 MMOL/L (98-107); CREATININE SERUM 0.81 MG/DL (0.60-1.30); GFR ESTIMATED > 60; GLUCOSE 184 MG/DL (70-105); POTASSIUM 3.7 MMOL/L (3.6-5.0); SODIUM 135 MMOL/L (135-145)
[2018-09-16 18:05] LABS: BILIRUBIN,URINE NEGATIVE (NEGATIVE); CLARITY,URINE CLEAR; COLOR,URINE YELLOW; GLUCOSE, URINE (UA) NEGATIVE (NEGATIVE); KETONES,URINE NEGATIVE (NEGATIVE); LEUKOCYTE ESTERASE ,URINE NEGATIVE (NEGATIVE); NITRITE,URINE NEGATIVE (NEGATIVE); PH,URINE 7 (5-9); PROTEIN,URINE NEGATIVE (NEGATIVE); UROBILINOGEN,URINE NORMAL (NORMAL)
[2018-09-16 18:12] LABS: BACTERIA,URINE TRACE /HPF
[2018-09-17 00:10] VITALS: BP 103/69
[2018-09-17] MEDS: inSUlin ASPART (NovoLOG) 1 UNIT/0.01 ML (CHARGE PER UNIT) SC SCH ×3 (00:20→08:00)
[2018-09-17 03:41] LABS: BASOPHILS % (AUTO) 0 % (0-10); EOSINOPHILS # (AUTO) 0.2 10^3/uL (0.0-0.3); EOSINOPHILS % (AUTO) 2 % (0-10); HEMATOCRIT 40 % (35-52); HEMOGLOBIN 13.9 G/DL (11.5-16.0); LYMPHOCYTES # (AUTO) 4.1 X 10^3 (1.0-4.0); LYMPHOCYTES % (AUTO) 51 % (12-44); MEAN CORPUSCULAR HEMOGLOBIN 30 PG (25-34); MEAN CORPUSCULAR HGB CONC 34 G/DL (32-36); MEAN CORPUSCULAR VOLUME 87 FL (80-99); MEAN PLATELET VOLUME 9.8 FL (7.4-10.4); MONOCYTES # (AUTO) 0.6 X 10^3 (0.0-1.0); MONOCYTES % (AUTO) 8 % (0-12); NEUTROPHILS # (AUTO) 3.1 X 10^3 (1.8-7.8); NEUTROPHILS % (AUTO) 39 % (42-75); PLATELET COUNT 333 10^3/uL (130-400); RED CELL DISTRIBUTION WIDTH 12.4 % (10.0-14.5); WHITE BLOOD COUNT 7.9 10^3/uL (4.3-11.0)
[2018-09-17 04:05] LABS: BUN/CREATININE RATIO 13; CALCIUM 9.3 MG/DL (8.5-10.1); CARBON DIOXIDE 17 MMOL/L (21-32); CHLORIDE 107 MMOL/L (98-107); CREATININE SERUM 0.83 MG/DL (0.60-1.30); GFR ESTIMATED > 60; GLUCOSE 189 MG/DL (70-105); POTASSIUM 3.7 MMOL/L (3.6-5.0); SODIUM 137 MMOL/L (135-145)
[2018-09-17] MEDS: POTASSIUM CL 10MEQ/50ML IVPB 50 ML IV SCH (05:50)
[2018-09-17] MEDS: MAGNESIUM 1 GM/100 ML IVPB 100 ML IV SCH (05:52)
[2018-09-17] MEDS: KCL 20 MEQ TAB (K-DUR) PO SCH (05:53)
[2018-09-17 08:00] VITALS: BP 133/86
[2018-09-17] MEDS ORDERED: INSU100V16 (08:50)
[2018-09-17] MEDS ORDERED: IBUP-2055 PO (08:50)
[2018-09-17] MEDS ORDERED: DIPH25TA83 PO (08:50)
[2018-09-17] MEDS ORDERED: ALPR0.5T7 PO (08:50)
[2018-09-17] MEDS ORDERED: VILA20TA PO (08:51)
--- NOTE | 2018-09-17 08:53 | NUR ---
SPOKE WITH PATIENT, WELL GOING THRU THE EXT MED HISTORY (ALSO CALLED [facility]) TO COMPLETE THE MED REC. 07-21-2018 NOVOLOG VIAL: USES PER INSULIN PUMP, MAXIMUM DAILY ALLOWANCE IS 150 UNITS PER DAY. OTC MEDS: IBUPROFEN 200M TS PO Q 6 H PRN BENADRYL 25M TS HS PRN
--- NOTE | 2018-09-17 10:31 | Discharge Inst-Simple/Standard ---
Discharge Inst-Standard Patient Instructions/Follow Up Plan of Care/Instructions/FU: Take medications as prescribed. Follow up with your graduate teaching assistant as scheduled. Follow up with your PCP in 1-2 weeks. Activity as Tolerated: Yes Discharge Diet: No Restrictions Return to The Hospital For: lightheadedness, dizziness, chest pain, dyspnea, or severe hyperglycemia. Planned Outpatient Orders/Ref. Pneu Vac Indicated: Yes TOÑO RUBIO MD Sep 17, 2018 10:31
--- NOTE | 2018-09-17 10:33 | Discharge Summary ---
Diagnosis/Chief Complaint Date of Admission Sep 15, 2018 at 01:25 Date of Discharge Discharge Date: Sep 17, 2018 Discharge Time: 12:00 Admission Diagnosis DKA Discharge Diagnosis DKA (1) DKA, type 1 Status: Acute (2) Insulin pump mechanical complication Status: Acute Discharge Summary Discharge Physical Exam Allergies: Coded Allergies: fish derived (Verified Allergy, Intermediate, swelling/hives, 09/15/18) Vitals & I&Os Vital Signs Date Time Temp Pulse Resp B/P (MAP) Pulse Ox O2 Delivery O2 Flow Rate FiO2 09/17/18 11:05 09/17/18 08:00 97.9 109 18 100 Room Air General Appearance: No Apparent Distress, Obese HEENT: PERRL/EOMI, Pharynx Normal, Moist Mucous Membranes Respiratory: Chest Non Tender, Lungs Clear, Normal Breath Sounds, No Respiratory Distress Cardiovascular: Regular Rate, Rhythm, No Edema, No Murmur Gastrointestinal: Normal Bowel Sounds, Non Tender, Soft Extremity: Normal Inspection, Non Tender, No Pedal Edema Skin: Normal Color, Warm/Dry Neurologic/Psychiatric: Alert, Oriented x3, Normal Mood/Affect Hospital Course Was the Problem List Reviewed?: Yes 18-year-old female with past medical history of type I diabetes mellitus who presented with diabetic ketoacidosis. She had moved her insulin pump to a new site and there is apparently a mechanical malfunction and she was not receiving her insulin. There was no actual problem with the device though. She was started on subcutaneous insulin and her anion gap closed. She was instructed to transition back to her insulin pump on discharge. She'll follow-up with her primary care physician in about one week. Labs (last 24 hrs) Laboratory Tests 09/16/18 15:54: Glucometer 217H 09/16/18 17:10: Sodium Level 135, Potassium Level 3.7, Chloride Level 104, Carbon Dioxide Level 17L, Anion Gap 14, Blood Urea Nitrogen 8, Creatinine 0.81, Estimat Glomerular Filtration Rate > 60, BUN/Creatinine Ratio 10, Glucose Level 184H, Calcium Level 9.3 09/16/18 17:45: Urine Color YELLOW, Urine Clarity CLEAR, Urine pH 7, Urine Specific Epworth 1.005L, Urine Protein NEGATIVE, Urine Glucose (UA) NEGATIVE, Urine Ketones NEGATIVE, Urine Nitrite NEGATIVE, Urine Bilirubin NEGATIVE, Urine Urobilinogen NORMAL, Urine Leukocyte Esterase NEGATIVE, Urine RBC (Auto) NEGATIVE, Urine RBC NONE, Urine WBC 2-5, Urine Squamous Epithelial Cells 10-25H, Urine Crystals NONE, Urine Bacteria TRACE, Urine Casts NONE, Urine Mucus NEGATIVE, Urine Culture Indicated NO 09/16/18 20:00: Glucometer 72 09/17/18 00:13: Glucometer 370H 09/17/18 03:04: Sodium Level 137, Potassium Level 3.7, Chloride Level 107, Carbon Dioxide Level 17L, Anion Gap 13, Blood Urea Nitrogen 11, Creatinine 0.83, Estimat Glomerular Filtration Rate > 60, BUN/Creatinine Ratio 13, Glucose Level 189H, Calcium Level 9.3, Beta-Hydroxybutyrate (Chem panel) 0.20 09/17/18 03:14: White Blood Count 7.9, Red Blood Count 4.62, Hemoglobin 13.9, Hematocrit 40, Mean Corpuscular Volume 87, Mean Corpuscular Hemoglobin 30, Mean Corpuscular Hemoglobin Concent 34, Red Cell Distribution Width 12.4, Platelet Count 333, Mean Platelet Volume 9.8, Neutrophils (%) (Auto) 39L, Lymphocytes (%) (Auto) 51H , Monocytes (%) (Auto) 8, Eosinophils (%) (Auto) 2, Basophils (%) (Auto) 0, Neutrophils # (Auto) 3.1, Lymphocytes # (Auto) 4.1H, Monocytes # (Auto) 0.6, Eosinophils # (Auto) 0.2, Basophils # (Auto) 0.0 09/17/18 04:04: Glucometer 135H 09/17/18 07:49: Glucometer 98 Microbiology 09/15/18 MRSA Screen - Final, Complete MRSA not isolated Patient resulted labs reviewed. Pending Labs Laboratory Tests 09/17/18 07:49: Glucometer 98 Discussion & Recommendations Discharge Planning: <30 minutes discharge planning Discharge Home Medications: Active Scripts Active Reported Viibryd (Vilazodone Hydrochloride) 20 Mg Tablet 20 Mg PO DAILY Diphedryl (Diphenhydramine HCl) 25 Mg Tablet 50 Mg PO DAILY PRN Ibuprofen 200 Mg Tablet 400 Mg PO Q6H PRN Novolog (Insulin Aspart) 100 Unit/1 Ml Susp Unit UD USES INSULIN PUMP. MAX DAILY ALLOWENCE 150 UNITS DAIILY Alprazolam 0.5 Mg Tablet 0.5 Mg PO DAILY PRN LAST FILLED 06-26-2018 Condition at discharge Stable Instructions to patient/family Please see electronic discharge instructions given to patient. Clinical Quality Measures DVT/VTE Risk/Contraindication: Risk Factor Score Per Nursin RFS Level Per Nursing on Admit: 2=Moderate Copy Copies To 1: ANAI FRANK DO Problem Qualifiers (1) DKA, type 1: Diabetes mellitus complication detail: without coma Qualified Codes: E10.10 - Type 1 diabetes mellitus with ketoacidosis without coma (2) Insulin pump mechanical complication: Mechanical complication type: displacement Encounter type: initial encounter TOÑO RUBIO MD Sep 17, 2018 10:33
== END 2018-09-17 11:05 | disposition home or self-care (01) | DRG 919 ==
LOC: EDUNIT# 22:43 → ER 22:44 → ICU 09-15 01:25 → 4TH 09-15 11:00
PROVIDERS: ADMIT Family Medicine; ATTEND Family Medicine
DX: T85.624A Displacement of insulin pump, initial encounter (principal); T38.3X6A Underdosing of insulin and oral hypoglycemic [antidiabetic] drugs, initial encounter; E10.10 Type 1 diabetes mellitus with ketoacidosis without coma; N17.9 Acute kidney failure, unspecified; E66.9 Obesity, unspecified; F17.210 Nicotine dependence, cigarettes, uncomplicated; F41.9 Anxiety disorder, unspecified; F32.9 Major depressive disorder, single episode, unspecified; Z79.4 Long term (current) use of insulin
CPT/HCPCS: 36415; 80048; 80053; 80320; 81000; 82010; 82962; 83036; 83735; 84100; 84703; 85007; 85025; 85027; 87081; 96361; 96372; 96374; 96375

== ENCOUNTER 2020-06-20 21:43 | Emergency (ER) | payer BC ==
[~2020-06-20 21:43] MED LIST changes: +ALPR0.5T7 PO; +DIPH25TA83 PO; +IBUP-2473 PO; +INSU100V16; +VILA20TA PO
[2020-06-21] MEDS ORDERED: ACHD5005 PO (08:51)
== END 2020-06-20 23:09 | disposition left against medical advice (07) ==
LOC: EDUNIT# 21:43 → ER 21:47
DX: M79.644 Pain in right finger(s) (principal)

== ENCOUNTER 2020-06-21 07:35 | Emergency (ER) | payer OTHER, BC ==
[~2020-06-21] VITALS: Ht 157.4 cm; Wt 73.9 kg
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
[2020-06-21] MEDS ORDERED: ACHD5005 PO (08:51)
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
[2020-06-21 10:20] VITALS: BP 143/94
== END 2020-06-21 10:20 | disposition home or self-care (01) ==
LOC: EDUNIT# 07:35 → ER 07:39
DX: S62.306A Unspecified fracture of fifth metacarpal bone, right hand, initial encounter for closed fracture (principal); F32.9 Major depressive disorder, single episode, unspecified; E11.9 Type 2 diabetes mellitus without complications; F41.9 Anxiety disorder, unspecified; F17.290 Nicotine dependence, other tobacco product, uncomplicated; Z79.4 Long term (current) use of insulin; Z79.899 Other long term (current) drug therapy; Y04.8XXA Assault by other bodily force, initial encounter
CPT/HCPCS: 29125; 73110; 73130; 84703

== ENCOUNTER 2020-06-26 20:04 | Emergency (ER) | payer BC ==
[~2020-06-26] VITALS: Ht 157 cm; Wt 72.0 kg
[~2020-06-26 20:04] MED LIST changes: +ACHD5005 PO
[2020-06-26] MEDS ORDERED: HYDROcodone/APAP 5 MG/325 MG (LORTAB) TAB PO ONE (20:15)
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
--- NOTE | 2020-06-26 21:03 | Diagnostic Imaging Report ---
INDICATION: pain after fall last night. TECHNIQUE: AP and lateral views of sacrum and coccyx, 8:53 PM. CORRELATION STUDY: None FINDINGS: There is slight acute angulation at the lower sacrum and coccyx. There does appear to be slight distorted appearance. This does raise concern for potential acute fracture. Significant displacement is not otherwise suggested. The sacroiliac joints are maintained. Pubic rami and obturator rings are maintained. IMPRESSION: 1. Slight asymmetric angulation of the lower sacrum and coccyx. While this could be developmental, given the slight distorted appearance does raise concern for potential nondisplaced but slightly angulated fracture. Dictated by: Dictated on workstation # [id number]
[2020-06-26] MEDS ORDERED: OXYC1TAB11 PO (21:43)
[2020-06-26 21:47] VITALS: BP 130/73
== END 2020-06-26 21:46 | disposition home or self-care (01) ==
LOC: EDUNIT# 20:04 → ER 20:06
DX: S32.2XXA Fracture of coccyx, initial encounter for closed fracture (principal); R00.0 Tachycardia, unspecified; E11.9 Type 2 diabetes mellitus without complications; F41.9 Anxiety disorder, unspecified; F32.9 Major depressive disorder, single episode, unspecified; Z79.4 Long term (current) use of insulin; Y04.8XXA Assault by other bodily force, initial encounter
CPT/HCPCS: 72220; 82947

== ENCOUNTER 2020-07-26 13:31 | Emergency (ER) | payer BC ==
[~2020-07-26] VITALS: Ht 157.4 cm; Wt 70.9 kg
[~2020-07-26 13:31] MED LIST changes: +OXYC1TAB11 PO
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
[2020-07-26 14:03] VITALS: BP 128/82
== END 2020-07-26 14:06 | disposition home or self-care (01) ==
LOC: EDUNIT# 13:31 → ER 13:34
DX: Z47.89 Encounter for other orthopedic aftercare (principal); F41.9 Anxiety disorder, unspecified; F32.9 Major depressive disorder, single episode, unspecified; E11.9 Type 2 diabetes mellitus without complications; Z79.899 Other long term (current) drug therapy; Z79.4 Long term (current) use of insulin
CPT/HCPCS: 99281

== ENCOUNTER 2021-01-09 15:34 | Inpatient (IN) | payer BC ==
[2021-01-09] VITALS (17 sets, daily range): BP systolic 109–145; BP diastolic 59–100
[~2021-01-09] VITALS: Ht 157.4 cm; Wt 78.4 kg
[~2021-01-09 15:34] MED LIST changes: -CITA10TA7 PO; +CITA10TA9 PO
--- OUTSIDE RECORDS SUMMARY | 2021-01-09 15:38 | XMS REPORT ---
Author Author Lucero Peres [facility] Address [address] [place] [id number] Care Team Providers Care Locksmith Name Role Phone Diogenes Peres PCP Diogenes Peres PreferredProvider Allergies and Adverse Reactions Name Reaction Notes NO KNOWN DRUG ALLERGIES Plan of Treatment Not available. Medications Active Name Start Date Estimated Completion Date SIG Co mments Lantus Solostar 100 unit/mL (3 mL) subcutaneous insulin pen inject by subcutaneous route as per insulin protocol Glucagon Emergency Kit (human) 1 mg injection kit 10/07/2013 use as directed. Glucagon Emergency Kit (human) 1 mg injection kit 10/21/2014 USE DIRECTED. aluminum chloride 20 % topical solution 10/12/2015 apply to affected area by topical route once a day (at bedtime) Novolog Flexpen 100 unit/mL Subcutaneous Insulin Pen 11/15/2016 inject by subcutaneous route as per insulin sliding scale protocol buspirone 15 mg oral tablet 11/29/2016 take 0.5 tablet (7.5 mg) by oral route 2 times per day for 1 week then 1 tablet (15 mg) 2 times a day Drysol Dab-O-Matic 20 % topical solution 06/22/2017 APPLY TOPICALLY TO THE AFFECTED AREA EVERY NIGHT AT BEDTIME citalopram 40 mg oral tablet 01/08/2018 TAKE 1 TABLE T BY MOUTH EVERY DAY TriNessa (28) 0.18/0.215/0.25 mg-35 mcg (28) oral tablet 9 TAKE 1 TABLET BY MOUTH ONCE DAILY(START ON 05/08/16) Tri-Sprintec (28) 0.18/0.215/0.25 mg-35 mcg (28) oral tablet 10/19 TAKE 1 TABLET BY MOUTH ONCE DAILY(START ON 05/08/16) oxycodone-acetaminophen 5 mg-325 mg tablet 07/03/2020 take 1 tablet by oral route every 8 hours as needed montelukast oral tablet 10 mg 07/27/2020 ta ke 1 tablet (10 mg) by oral route once daily in the evening promethazine-codeine oral syrup 6.25-10 mg/5 mL 08/03/2020 take 5 milliliters by oral route every 6 hours as needed, not to exceed 30 mL in 24 hours metronidazole oral tablet 500 mg 08/21/2020 take 1 tablet by oral route 2 times a day valacyclovir 500 mg oral tablet 10/05/2020 09/30/2021 take 1 tablet (500 mg) by oral route once daily for 90 days alprazolam 1 mg oral tablet 01/05/2021 take 1 tablet (1 mg) by oral route once a day as needed Name Start Date Expiration Date [...] cetirizine 10 mg oral tablet 02/04/2014 03/06/2014 roseanne e 1 tablet (10 mg) by oral route [...] montelukast 10 mg oral tablet 05/19/2015 05/29/2015 ta ke 1 tablet (10 mg) by oral route once daily in the evening for 10 days azithromycin 250 mg oral tablet 01/13/2016 01/18/2016 take 2 tablets (500 mg) by oral route once daily for 1 day then 1 tablet (250 mg) by oral route once daily for 4 days norgestimate-ethinyl estradiol 0.18/0.215/0.25 mg-35 m cg (28) oral tablet 03/28/2016 02/27/2017 take 1 tablet by oral route once daily S tart on 05/08/16 Novolog 100 unit/mL subcutaneous solution 12/15/2016 018 USE UP TO 80 UNITS DAILY WITH INSULIN PUMP TRI-SPRINTEC TABLETS 28'S 01/06/2020 03/02/2020 TAKE 1 TABLET BY MOUTH ONCE DAILY(START ON 05/08/16) METRONIDAZOLE 500MG TABLETS 09/01/2020 09/06/2020 TAKE 1 TABLET BY MOUTH TWICE DAILY Discontinued Name Start Date Discontinued Date SIG [...] tablet 02/14/2014 03/24/2014 take 2 tablets (500 mg) by oral route once daily for [...] albuterol sulfate 90 mcg/actuation inhalation HFA aerosol in haler 03/05/2014 11/25/2014 inhale 1 - 2 puffs by inhalation route every 6 hours a s needed montelukast 10 mg oral tablet 03/24/2014 04/21/2014 ta ke 1 tablet (10 mg) by oral route once daily in the evening for 30 days citalopram 10 mg oral tablet 03/24/2014 11/25/2014 roseanne e 1 tablet (10 mg) by oral route [...] tablet 03/04/2015 06/11/2015 take 0.5 tablet (10 mg) by oral route once daily for 1 week then 1 tablet daily "didn't work" escitalopram oxalate 10 mg oral tablet 06/11/2015 10/12/2015 take 1 tablet (10 mg) by oral route once daily for 30 days "felt like it did not work" medroxyprogesterone 5 mg oral tablet 10/12/2015 11/29/2016 take 1 tablet (5 mg) by oral route once daily citalopram 20 mg oral tablet 03/28/2016 11/29/2016 roseanne e 0.5 tablet (10 mg) by oral route once daily for 6 days then 1 tablet daily Problem List Description Status Onset Diabetes Mellitus, Type I Active Vital Signs Date Time BP-Sys(mm[Hg] BP-Ester(mm[Hg]) HR(bpm) RR(rpm) Temp WT HT HC BMI BSA BMI Percentile O2 Sat(%) 11/29/2016 2:51:00 PM 126 mm[Hg] 60 mm[Hg] 101 {beats}/min 18 rpm 97.6 F 221 lbs 63 in 39.148 kg/m2 2.1109 m2 98.5 % 98 % 03/28/2016 1:45:00 PM 122 mm[Hg] 60 mm[Hg] 83 {beats}/min 18 rpm 97.6 F 207 lbs 63 in 36.67 kg/m2 2.04 m2 98.2 % 100 % 01/13/2016 5:52:00 PM 130 mm[Hg] 82 mm[Hg] 121 {beats}/min 18 rpm 98.2 F 202 lbs 64 in 34.6729 kg/m2 2.0341 m2 97.7 % 100 % 12/21/2015 1:08:00 PM 110 mm[Hg] 62 mm[Hg] 95 {beats}/min 18 rpm 98.1 F 207.375 lbs 63 in 36.73 kg/m2 2.04 m2 98.3 % 98 % 10/12/2015 3:46:00 PM 118 mm[Hg] 60 mm[Hg] 101 {beats}/min 20 rpm 97.9 F 196 lbs 63 in 34.7195 kg/m2 1.9879 m2 97.8 % 100 % 06/11/2015 11:11:00 AM 110 mm[Hg] 80 mm[Hg] 84 {beats}/min 18 rpm 97.4 F 183 lbs 63 in 32.42 kg/m2 1.92 m2 97 % 99 % 05/19/2015 3:51:00 PM 112 mm[Hg] 70 mm[Hg] 102 {beats}/min 20 rpm 98.8 F 187.5 lbs 63 in 33.21 kg/m2 1.94 m2 97.4 % 100 % 03/04/2015 10:23:00 AM 122 mm[Hg] 60 mm[Hg] 87 {beats}/min 16 rpm 97.1 F 183 lbs 63 in 32.4167 kg/m2 1.9209 m2 97.1 % 99 % 11/25/2014 1:30:00 PM 122 mm[Hg] 70 mm[Hg] 66 {beats}/min 20 rpm 98 F 184 lbs 63 in 32.59 kg/m2 1.93 m2 97.3 % 09/16/2014 2:40:00 PM 124 mm[Hg] 64 mm[Hg] 99 {beats}/min 18 rpm 98.2 F 189 lbs 64 in 32.4414 kg/m2 1.9675 m2 97.3 % 99 % 04/21/2014 1:53:00 PM 118 mm[Hg] 62 mm[Hg] 95 {beats}/min 16 rpm 98.2 F 160 lbs 63 in 28.34 kg/m2 1.80 m2 94.2 % 98 % 04/04/2014 10:54:00 AM 122 mm[Hg] 60 mm[Hg] 99 {beats}/min 16 rpm 98.1 F 168 lbs 63 in 29.7596 kg/m2 1.8405 m2 95.8 % 98 % 03/24/2014 3:37:00 PM 122 mm[Hg] 62 mm[Hg] 88 {beats}/min 18 rpm 98.2 F 167 lbs 63 in 29.58 kg/m2 1.83 m2 95.7 % 99 % 03/05/2014 3:32:00 PM 102 mm[Hg] 76 mm[Hg] 89 {beats}/min 16 rpm 96.6 F 164.5 lbs 63 in 29.1396 kg/m2 1.8212 m2 95.3 % 99 % 02/14/2014 10:22:00 AM 110 mm[Hg] 62 mm[Hg] 86 {beats}/min 18 rpm 97.3 F 163 lbs 63 in 28.87 kg/m2 1.81 m2 95 % 02/04/2014 2:37:00 PM 120 mm[Hg] 66 mm[Hg] 115 {beats}/min 20 rpm 97.5 F 160 lbs 63 in 28.3424 kg/m2 1.7961 m2 94.4 % 99 % 10/07/2013 3:36:00 PM 124 mm[Hg] 66 mm[Hg] 105 {beats}/min 18 rpm 98.1 F 160.5 lbs 63 in 28.43 kg/m2 1.80 m2 94.8 % 99 % 09/30/2013 3:41:00 PM 118 mm[Hg] 60 mm[Hg] 94 {beats}/min 20 rpm 98.1 F 160 lbs 99 % 05/23/2013 8:58:00 AM 118 mm[Hg] 60 mm[Hg] 90 {beats}/min 20 rpm 97 F 169 lbs 63 in 29.94 kg/m2 1.85 m2 96.6 % 98 % 04/22/2013 9:57:00 AM 118 mm[Hg] 60 mm[Hg] 67 {beats}/min 18 rpm 97.9 F 155 lbs 63 in 27.4567 kg/m2 1.7678 m2 94 % 99 % 09/25/2012 3:42:00 PM 122 mm[Hg] 62 mm[Hg] 60 {beats}/min 18 rpm 98.1 F 173 lbs 63 in 30.65 kg/m2 1.87 m2 97.4 % 09/28/2011 9:16:00 AM 124 mm[Hg] 64 mm[Hg] 64 {beats}/min 18 rpm 97.4 F 166.25 lbs 62 in 30.4072 kg/m2 1.8163 m2 97.8 % 09/21/2010 1:56:00 PM 110 mm[Hg] 68 mm[Hg] 88 {beats}/min 20 rpm 97.2 F 161.5 lbs 61.5 [...] 05/23/2013 12:00 AM Endocrinology Consult - Dr Yuliet Milner ewed 11/13/2013 12:00 AM THER/PROPH/DIAG INJ SC/IM Reviewed [...] Results 05/23/2013 10:10 AM GLUCOSE 214.0 mg/dLSODIUM 13 9.0 mmol/LPOTASSIUM 4.10 mmol/LCHLORIDE 101.0 mmol/LCO2 25.0 mmol/LBUN 14.0 mg/dLCREATININE 0.70 mg/dLSGOT/AST 16.0 IU/LSGPT/ALT 15.0 IU/LALK PHOS 142.0 IU/LTOTAL PROTEIN 7.50 g/dLALBUMIN 3.90 g/dLTOTAL BILI 0.50 mg/dLCALCIUM 9.90 mg/dLAGE 13 GFR NonAA N/A eGFR N/A mL/min/1.73 m2eGFR AA* N/A TRIGLYCERIDES 67.0 mg/dLCHOLESTEROL 148.0 mg/dLHDL 70.0 mg/dLTOT CHOL/HDL 2.1 LDL (CALC) 65.0 mg/dLHGB A1C 10.50 %Est Avg Glucose 254.7 mg/dL 05/23/2013 10:15 AM CREAT UR 87.0 mg/dLMICROALBU MIN UR 29.0 ug/mLALB:CREAT RATIO 33 05/23/2013 10:16 AM COLOR YELLOW APPEARANCE HAZY SPEC GRAV 1.020 pH 6.0 PROTEIN NEGATIVE GLUCOSE 500 KETONE NEGATIVE BILIRUBIN NEGATIVE BLOOD LARGE NITRITE NEGATIVE LEUK SCREEN NEGATIVE WBC/HPF NEGATIVE RBC/HPF 300-500 CASTS/LPF NEGATIVE CRYSTALS NEGATIVE MUCOUS THRDS NEGATIVE BACTERIA FEW EPITH CELLS FEW SQUAMOUS TRICHOMONAS NEGATIVE YEAST NEGATIVE 12/21/2015 1:29 PM Clarity Ur clear Color Ur lt yellow Glucose Ur-sCnc >=1000mg/dL Bilirub Ur Ql Strip neg Ketones Ur Ql Strip neg Sp Gr Ur Qn <=1.005 Hgb Ur Ql Strip neg pH Ur-LsCnc 7.0 Prot Ur Ql Strip neg Urobilinogen Ur-mCnc 0.2 E.U./dL Nitrite Ur Ql Strip neg WBC Est Ur Ql Strip Trace Test, Urine NEG 12/21/2015 1:45 PM WBC 7.1 RBC 5.00 HGB 14.60 g /dLHCT 42.90 %MCV 86.0 fLMCH 29.20 pgMCHC 34.0 g/dLRDW SD 37 RDW CV 11.90 %MPV 9.80 fLPLT 384 NRBC# 0.00 NRBC% 0.0 %NEUT 58.70 %%LYMP 32.40 %%MONO 7.40 %%EOS 0.80 %%BASO 0.60 %#NEUT 4.17 #LYMP 2.31 #MONO 0.53 #EOS 0.06 #BASO 0.04 MANUAL DIFF NOT IND GLUCOSE 472.0 mg/dLSODIUM 135.0 mmol/LPOTASSIUM 4.60 mmol/LCHLORIDE 101.0 mmol/LCO2 23.0 mmol/LBUN 15.0 mg/dLCREATININE 1.40 mg/dLSGOT/AST 11.0 IU/LSGPT/ALT 12.0 IU/LALK PHOS 121.0 IU/LTOTAL PROTEIN 6.90 g/dLALBUMIN 4.0 g/dLTOTAL BILI 0.60 mg/dLCALCIUM 9.60 mg/dLAGE 15 GFR NonAA N/A eGFR N/A mL/min/1.73 m2eGFR AA* N/A History Of Immunizations Name Date Admin Mfg Name Mfg Code Trade Name Lot# Route Inj Vis Given Vis Pub CVX Tdap 09/21/2010 sanofi pasteur PMC ADACEL [id number] Intramuscular Left A rm 09/21/2010 09/21/2007 115 HepB 1998 Not Entered NE Not Entered Not Entered Not En tered 02/13/2021 02/13/2021 08 HepB 1998 Not Entered NE Not Entered Not Entered Not En tered 02/13/2021 02/13/2021 08 HepB 1998 Not Entered NE Not Entered Not Entered Not En tered 02/13/2021 02/13/2021 08 Rotavirus 1998 Not Entered NE Not Entered Not Entered Not Entered 02/13/2021 02/13/2021 116 Rotavirus 1998 Not Entered NE Not Entered Not Entered Not Entered 02/13/2021 02/13/2021 116 Varicella 03/30/1999 Not Entered NE Not Entered Not Entered Not Entered 02/13/2021 02/13/2021 21 Varicella 09/21/2010 Not Entered NE Not Entered Not Entered N ot Entered 02/13/2021 02/13/2021 21 Hib 1998 Not Entered NE Not Entered Not Entered Not En tered 02/13/2021 02/13/2021 999 Hib 1998 Not Entered NE Not Entered Not Entered Not En tered 02/13/2021 02/13/2021 999 Hib 1998 Not Entered NE Not Entered Not Entered Not En tered 02/13/2021 02/13/2021 999 Hib 09/23/1999 Not Entered NE Not Entered Not Entered Not En tered 02/13/2021 02/13/2021 999 IPV 1998 Not Entered NE Not Entered Not Entered Not En tered 02/13/2021 02/13/2021 999 IPV 1998 Not Entered NE Not Entered Not Entered Not En tered 02/13/2021 02/13/2021 999 IPV 09/23/1999 Not Entered NE Not Entered Not Entered Not En tered 02/13/2021 02/13/2021 999 IPV 10/08/2002 Not Entered NE Not Entered Not Entered Not En tered 02/13/2021 02/13/2021 999 Pneumococcal 10/12/2000 Not Entered NE Not Entered Not Enter ed Not Entered 02/13/2021 02/13/2021 999 MMR 03/30/1999 Not Entered NE Not Entered Not Entered Not En tered 02/13/2021 02/13/2021 03 MMR 10/08/2002 Not Entered NE Not Entered Not Entered Not En tered 02/13/2021 02/13/2021 03 DTaP 1998 Not Entered NE Not Entered Not Entered Not En tered 02/13/2021 02/13/2021 20 DTaP 1998 Not Entered NE Not Entered Not Entered Not En tered 02/13/2021 02/13/2021 20 DTaP 1998 Not Entered NE Not Entered Not Entered Not En tered 02/13/2021 02/13/2021 20 DTaP 09/23/1999 Not Entered NE Not Entered Not Entered Not En tered 02/13/2021 02/13/2021 20 DTaP 10/08/2002 Not Entered NE Not Entered Not Entered Not En tered 02/13/2021 02/13/2021 20 HPV 09/16/2014 [employer] MSD GARDASIL [id number] Intramuscula r Left Deltoid 09/16/2014 06/29/2012 62 Meningococcal 09/16/2014 sanofi pasteur PMC MENACTRA [id number] Intramusc ular Right Deltoid 09/16/2014 11/26/2010 114 Influenza 11/25/2014 sanofi pasteur PMC FLUZONE [id number] Intramuscula r Left Deltoid 11/25/2014 09/19/2014 141 HPV 11/25/2014 [employer] MSD GARDASIL [id number] Intramuscu lar Right Deltoid 11/25/2014 06/29/2012 62 HPV 06/11/2015 [employer] MSD GARDASIL [id number] Intramuscul ar Left Deltoid 06/11/2015 06/29/2012 62 History of [...] Upper respiratory tract infection, unspecified type Jan 12 016 5:54PM Contraceptive counseling (Depo-Provera) Feb 26 2016 10:13AM Anxiety Disorder Mar 28 2016 1:47PM Depressive Disorder Mar 28 2016 1:47PM Encounter for surveillance of contraceptive pills Mar 28 201 7 1:47PM Anxiety Disorder Nov 29 2016 2:53PM Closed fracture of coccyx, initial encounter Jul 03 2020 10: 29AM Cough Jul 27 2020 1:38PM Rhinorrhea Jul 27 2020 1:38PM Anxiety Aug 21 2020 11:56AM Acute vaginitis Aug 21 2020 11:56AM Other specified bacterial agents as the cause of disea ses classified elsewhere Aug 21 2020 11:56AM Payers Insurance Name Company Name Plan Name Plan Number Policy Number Benedicto cy Group Number Start Date BCBS [employer] [place] [id number] [facility], 2014 History of Encounters Visit Date Visit Type Provider 08/21/2020 Office visit Diogenes Peres DO 07/27/2020 Office visit Diogenes Peres DO 07/03/2020 Office visit Diogenes Peres DO 11/29/2016 Office visit Diogenes Peres DO 03/28/2016 Office visit Diogenes Peres DO 02/26/2016 Office visit Diogenes Peres DO 01/13/2016 Office visit Roger Rockwell APR N 12/21/2015 Office visit Adelita Elliott [employer] AGENT 11/23/2015 Nurse visit Diogenes Peres DO 10/12/2015 Office visit Diogenes Peres DO 08/31/2015 Nurse visit Diogenes Peres DO 06/11/2015 Office visit Diogenes Peres DO 05/19/2015 Office visit Diogenes Peres DO 03/04/2015 Office visit Diogenes Peres DO 11/25/2014 Office visit Diogenes Peres DO 09/16/2014 Office visit 09/16/2014 Office visit Adelita Elliott [employer] AGENT 07/11/2014 Nurse visit Susan MARINELLI RN 04/21/2014 Office visit Diogenes Peres DO 04/11/2014 Nurse visit Diogenes Peres DO 04/04/2014 Office visit Diogenes Peres DO 03/24/2014 Office visit Diogenes Peres DO 03/05/2014 Office visit Adelita Elliott [employer] AGENT 02/14/2014 Office visit Randal Beltrán MD 02/04/2014 Office visit Diogenes Peres DO 01/24/2014 [facility] Liz Francisco MD 01/23/2014 Nurse visit Diogenes Peres DO 11/13/2013 Nurse visit Adelita Elliott [employer] AGENT 10/07/2013 Office visit Adelita Elliott APRN 09/30/2013 Office visit Diogenes Peres DO 05/23/2013 Office visit Diogenes Peres DO 04/22/2013 Office visit Diogenes Peres DO 09/25/2012 Office visit Diogenes Peres DO 09/28/2011 Office visit Adelita Elliott APRN 09/21/2010 Office visit Adelita Elliott APRN 12/15/2008 Office visit Diogenes Peres DO
--- OUTSIDE RECORDS SUMMARY | 2021-01-09 15:38 | XMS REPORT ---
Author Author Lucero Peres [facility] Address [address] [place] [id number] Care Team Providers Care Corporate Security Officer Name Role Phone Diogenes Peres PCP Diogenes [...] oral route once a day as needed lamotrigine 25 mg oral tablet 01/06/2021 01/27/2021 ta ke 1 tablet by oral route daily for 21 days lamotrigine 50 mg oral tablet,disintegrating 01/06/2021 take 1 tablet (50 mg) and place on top of the tongue where it will dissolve, then swallow by oral route once daily Name Start [...] F 196 lbs 63 in 34.7195 kg/m2 1.99 m2 97.8 % 100 % 06/11/2015 11:11:00 AM 110 mm[Hg] 80 mm[Hg] 84 {beats}/min 18 rpm 97.4 F 183 lbs 63 in 32.4167 kg/m2 1.9209 m2 97 % 99 % 05/19/2015 3:51:00 PM 112 mm[Hg] 70 mm[Hg] 102 {beats}/min 20 rpm 98.8 F 187.5 lbs 63 in 33.2138 kg/m2 1.9443 m2 97.4 % 100 % 03/04/2015 10:23:00 AM 122 mm[Hg] 60 mm[Hg] 87 {beats}/min 16 rpm 97.1 F 183 lbs 63 in 32.42 kg/m2 1.92 m2 97.1 % 99 % 11/25/2014 1:30:00 PM 122 mm[Hg] 70 mm[Hg] 66 {beats}/min 20 rpm 98 F 184 lbs 63 in 32.59 kg/m2 1.9261 m2 97.3 % 09/16/2014 2:40:00 PM 124 [...] 97 F 169 lbs 63 in 29.9367 kg/m2 1.8459 m2 96.6 % 98 % 04/22/2013 9:57:00 AM 118 mm[Hg] 60 mm[Hg] 67 {beats}/min 18 rpm 97.9 F 155 lbs 63 in 27.46 kg/m2 1.77 m2 94 % 99 % 09/25/2012 3:42:00 PM 122 mm[Hg] 62 mm[Hg] 60 {beats}/min 18 rpm 98.1 F 173 lbs 63 in 30.6453 kg/m2 1.8676 m2 97.4 % 09/28/2011 9:16:00 AM 124 mm[Hg] 64 mm[Hg] 64 {beats}/min 18 rpm 97.4 F 166.25 lbs 62 in 30.41 kg/m2 1.82 m2 97.8 % 09/21/2010 1:56:00 PM 110 mm[Hg] 68 mm[Hg] 88 {beats}/min 20 rpm 97.2 F 161.5 lbs 61.5 in 30.0207 kg/m2 1.7829 m2 98.2 % Social History Name Description [...] CVX Tdap 09/21/2010 sanofi pasteur PMC ADACEL [id number] Intramuscular Left A rm 09/21/2010 09/21/2007 115 [...] 09/16/2014 [employer] MSD GARDASIL [id number] Intramuscula r Left Deltoid 09/16/2014 06/29/2012 62 Meningococcal 09/16/2014 sanofi pasteur PMC MENACTRA [id number] Intramusc ular Right Deltoid 09/16/2014 11/26/2010 114 Influenza 11/25/2014 sanofi pasteur PMC FLUZONE [id number] Intramuscula r Left Deltoid 11/25/2014 09/19/2014 141 HPV 11/25/2014 [employer] MSD GARDASIL [id number] Intramuscu lar Right Deltoid 11/25/2014 06/29/2012 62 HPV 06/11/2015 [employer] MSD GARDASIL [id number] Intramuscul ar Left Deltoid 06/11/2015 06/29/2012 62 [...] respiratory tract infection, unspecified type Jan 12 5:54PM Contraceptive counseling (Depo-Provera) Feb 26 2016 10:13AM Anxiety Disorder Mar 28 2016 1:47PM Depressive Disorder Mar 28 2016 1:47PM Encounter for surveillance of contraceptive pills Mar 28 7 1:47PM Anxiety Disorder Nov 29 2016 2:53PM Closed fracture of coccyx, initial encounter Jul 03 2020 10: 29AM Cough Jul 27 2020 1:38PM Rhinorrhea Jul 27 2020 1:38PM Anxiety Aug 21 2020 11:56AM Acute vaginitis Aug 21 2020 11:56AM Other specified bacterial agents as the cause of disea ses classified elsewhere Aug 21 2020 11:56AM Severe episode of recurrent major depres sive disorder, without psychotic features Jan 06 2021 10:54AM Payers Insurance Name Company Name Plan Name Plan Number Policy Number Benedicto cy Group Number [id number] History of Encounters Visit Date Visit Type Provider 01/06/2021 Office visit Diogenes Peres DO 08/21/2020 Office visit Diogenes Peres DO 07/27/2020 Office visit Diogenes Peres DO 07/03/2020 Office visit Diogenes Peres DO 11/29/2016 Office visit Diogenes Peres DO 03/28/2016 Office visit Diogenes Peres DO 02/26/2016 Office visit Diogenes Peres DO 01/13/2016 Office visit Roger Rockwell APR N 12/21/2015 Office visit Adelita Elliott [employer]ST CONTROLLER 11/23/2015 Nurse visit Diogenes Peres DO 10/12/2015 Office visit Diogenes Peres DO 08/31/2015 Nurse visit Diogenes Peres DO 06/11/2015 Office visit Diogenes Peres DO 05/19/2015 Office visit Diogenes Peres DO 03/04/2015 Office visit Diogenes Peres DO 11/25/2014 Office visit Diogenes Peres DO 09/16/2014 Office visit 09/16/2014 Office visit Adelita Elliott COST CONTROLLER 07/11/2014 Nurse visit Susan MARINELLI RN 04/21/2014 Office visit Diogenes Peres DO 04/11/2014 Nurse visit Diogenes Peres DO 04/04/2014 Office visit Diogenes Peres DO 03/24/2014 Office visit Diogenes Peres DO 03/05/2014 Office visit Adelita Elliott [employer]ST CONTROLLER 02/14/2014 Office visit Ranadl Beltrán MD 02/04/2014 Office visit Diogenes Peres DO 01/24/2014 [facility] Liz Francisco MD 01/23/2014 Nurse visit Diogenes Peres DO 11/13/2013 Nurse visit Adelita Elliott [employer]ST CONTROLLER 10/07/2013 Office visit Adelita Elliott COST CONTROLLER 09/30/2013 Office visit Diogenes Peres DO 05/23/2013 Office visit Diogenes Peres DO 04/22/2013 Office visit Diogenes Peres DO 09/25/2012 Office visit Diogenes Peres DO 09/28/2011 Office visit Adelita Elliott COST CONTROLLER 09/21/2010 Office visit Adelita Elliott COST CONTROLLER 12/15/2008 Office visit Diogenes Peres DO
[2021-01-09] MEDS ORDERED: NS IV 1000 ML 1,000 ML IV SCH ×2 (16:15→21:00)
--- NOTE | 2021-01-09 16:27 | ED General ---
General Stated Complaint: DIABETIC/OUT OF INSULIN Source of Information: Patient Exam Limitations: No Limitations (ISAIAH REEVES APRN) History of Present Illness Date Seen by Provider: Jan 09, 2021 Time Seen by Provider: 16:26 Initial Comments To ER with reports that she is diabetic and out of her insulin. She her first dose this morning. She typically takes 15 units 3 times daily. Type I diabetic. She has no refills left on her insulin pen. She has had nausea vomi ting and feels like she is in DKA. She follows with Dr. JOYCE from [facility]. Timing/Duration: 4-6 Hours Severity: Moderate Associated Systoms: Denies Symptoms (ISAIAH REEVES APRN) Allergies and Home Medications Allergies Coded Allergies: fish derived (Verified Allergy, Intermediate, swelling/hives, 09/15/18) Patient Home Medication List Home Medication List Reviewed: Yes (ISAIAH REEVES APRN) Alprazolam (Alprazolam) 0.5 Mg Tablet, 0.5 MG PO DAILY PRN for ANXIETY, (Reported) Entered as Reported by: DEMOND TAVAREZ on 09/17/18 0850 Diphenhydramine HCl (Diphedryl) 25 Mg Tablet, 50 MG PO DAILY PRN for SLEEP, (Reported) Entered as Reported by: DEMOND TAVAREZ on 09/17/18 0850 Hydrocodone/Acetaminophen (Hydrocodone-Acetamin 5-325 mg) 1 Each Tablet, 1 TAB PO Q4H PRN for PAIN-MODERATE (5-7) Prescribed by: ELIEZER HOWARD on 06/21/20 0852 Ibuprofen (Ibuprofen) 200 Mg Tablet, 400 MG PO Q6H PRN for PAIN-MILD, (Reported) Entered as Reported by: DEMOND TAVAREZ on 09/17/18 0850 Insulin Aspart (Novolog) 100 Unit/1 Ml Susp, UNIT UD, (Reported) Entered as Reported by: DEMOND TAVAREZ on 09/17/18 0850 Oxycodone HCl/Acetaminophen (Oxycodone-Acetaminophen 5-325) 1 Each Tablet, 1 EACH PO Q4H PRN for PAIN-MODERATE Prescribed by: ISAIAH REEVES on 06/26/20 2144 Vilazodone Hydrochloride (Viibryd) 20 Mg Tablet, 20 MG PO DAILY, (Reported) Entered as Reported by: DEMOND TAVAREZ on 09/17/18 0851 Review of Systems Review of Systems Constitutional: see HPI EENTM: see HPI Respiratory: no symptoms reported Cardiovascular: no symptoms reported Gastrointestinal: nausea, vomiting Genitourinary: no symptoms reported Musculoskeletal: no symptoms reported Skin: no symptoms reported Psychiatric/Neurological: No Symptoms Reported (ISAIAH REEVES APRN) Past Vlzxbna-Payjmk-Jnjawu Hx Immunizations Up To Date PED Vaccines UTD: Yes (ISAIAH REEVES APRN) Seasonal Allergies Seasonal Allergies: Yes (ISAIAH REEVES APRN) Past Medical History Surgeries: Yes (RIGHT KNEE) Orthopedic Respiratory: No Cardiac: No Neurological: No Female Reproductive Disorders: Denies Genitourinary: No Gastrointestinal: No Musculoskeletal: No Endocrine: Yes Hyperthyroidism, Diabetes, Insulin dep HEENT: No Cancer: No Psychosocial: Yes Anxiety, Depression Integumentary: No Blood Disorders: No (ISAIAH REEVES APRN) Family Medical History Heart Disease, Diabetes, Hypertension Mother has hypothyroidism Father has hyperthyroidism sister has hypothyroidism,depression, anxiety half brother peanut and shellfish allergries (ISAIAH REEVES APRN) Physical Exam Vital Signs Vital Signs - First Documented 01/09/21 15:56 Pulse 130 Resp 22 B/P (MAP) 136/93 (107) Pulse Ox 99 O2 Delivery Room Air (ELIEZER STRATTON MD) Vital Signs Capillary Refill : (ISAIAH REEVES APRN) Height, Weight, BMI Height: 5'2.00" Weight: 204lbs. 1.0oz. 92.623860gh; 28.00 BMI Method:Stated General Appearance: No Apparent Distress, WD/WN, Other (She does not have clue small respirations but she does have nausea and tachycardia.) Eyes: Bilateral Eye Normal Inspection, Bilateral Eye PERRL, Bilateral Eye EOMI HEENT: PERRL/EOMI, TMs Normal Respiratory: No Accessory Muscle Use, No Respiratory Distress Cardiovascular: Normal Peripheral Pulses, Tachycardia Gastrointestinal: Normal Bowel Sounds, Non Tender, Soft Extremity: Normal Capillary Refill, Normal Inspection Neurologic/Psychiatric: Alert, Oriented x3 Skin: Normal Color, Warm/Dry (ISAIAH REEVES APRN) Progress/Results/Core Measures Suspected Sepsis SIRS Temperature: Pulse: Respiratory Rate: Laboratory Tests 01/09/21 16:21: White Blood Count 10.2 Blood Pressure / Mean: Laboratory Tests 01/09/21 16:21: Creatinine 0.98, Platelet Count 432H, Total Bilirubin 0.5 (ISAIAH REEVES APRN) Results/Orders Lab Results Laboratory Tests Test 01/09/21 16:21 Range/Units White Blood Count 10.2 4.3-11.0 10^3/uL Red Blood Count 4.45 3.80-5.11 10^6/uL Hemoglobin 12.7 11.5-16.0 g/dL Hematocrit 40 35-52 % Mean Corpuscular Volume 89 80-99 fL Mean Corpuscular Hemoglobin 29 25-34 pg Mean Corpuscular Hemoglobin Concent 32 32-36 g/dL Red Cell Distribution Width 12.7 10.0-14.5 % Platelet Count 432 H 130-400 10^3/uL Mean Platelet Volume 9.6 9.0-12.2 fL Immature Granulocyte % (Auto) 0 % Neutrophils (%) (Auto) 73 42-75 % Lymphocytes (%) (Auto) 21 12-44 % Monocytes (%) (Auto) 5 0-12 % Eosinophils (%) (Auto) 1 0-10 % Basophils (%) (Auto) 0 0-10 % Neutrophils # (Auto) 7.5 1.8-7.8 X 10^3 Lymphocytes # (Auto) 2.1 1.0-4.0 X 10^3 Monocytes # (Auto) 0.5 0.0-1.0 X 10^3 Eosinophils # (Auto) 0.1 0.0-0.3 10^3/uL Basophils # (Auto) 0.0 0.0-0.1 10^3/uL Immature Granulocyte # (Auto) 0.0 0.0-0.1 10^3/uL Urine Color YELLOW Urine Clarity CLEAR Urine pH 6.0 5-9 Urine Specific [place] <=1.005 1.016-1.022 Urine Protein NEGATIVE NEGATIVE Urine Glucose (UA) 3+ H NEGATIVE Urine Ketones 1+ H NEGATIVE Urine Nitrite NEGATIVE NEGATIVE Urine Bilirubin NEGATIVE NEGATIVE Urine Urobilinogen 0.2 < = 1.0 MG/DL Urine Leukocyte Esterase NEGATIVE NEGATIVE Urine RBC (Auto) NEGATIVE NEGATIVE Urine RBC NONE /HPF Urine WBC RARE /HPF Urine Squamous Epithelial Cells 0-2 /HPF Urine Crystals NONE /LPF Urine Bacteria TRACE /HPF Urine Casts NONE /LPF Urine Mucus NEGATIVE /LPF Urine Culture Indicated NO Sodium Level 132 L 135-145 MMOL/L Potassium Level 5.8 H 3.6-5.0 MMOL/L Chloride Level 98 98-107 MMOL/L Carbon Dioxide Level 17 L 21-32 MMOL/L Anion Gap 17 H 5-14 MMOL/L Blood Urea Nitrogen 11 7-18 MG/DL Creatinine 0.98 0.60-1.30 MG/DL Estimat Glomerular Filtration Rate 86 BUN/Creatinine Ratio 11 Glucose Level 648 *H 70-105 MG/DL Calcium Level 9.3 8.5-10.1 MG/DL Corrected Calcium 9.6 8.5-10.1 MG/DL Total Bilirubin 0.5 0.1-1.0 MG/DL Aspartate Amino Transf (AST/SGOT) 71 H 5-34 U/L Alanine Aminotransferase (ALT/SGPT) 94 H 0-55 U/L Alkaline Phosphatase 168 H 40-136 U/L Total Protein 7.0 6.4-8.2 GM/DL Albumin 3.6 3.2-4.5 GM/DL Beta-Hydroxybutyrate (Chem panel) 3.48 H 0.00-0.27 MMOL/L Serum Test, Qualitative NEGATIVE NEGATIVE (ELIEZER STRATTON MD) Medications Given in ED Current Medications Medications Dose Ordered Sig/Fatuma Route Start Time Stop Time Status Last Admin Dose Admin Ondansetron HCl 8 mg ONCE ONCE IVP 01/09/21 16:30 01/09/21 16:31 DC 01/09/21 16:33 8 MG (ELIEZER STRATTON MD) Vital Signs/I&O 01/09/21 15:56 Pulse 130 Resp 22 B/P (MAP) 136/93 (107) Pulse Ox 99 O2 Delivery Room Air (ELIEZER STRATTON MD) Vital Signs/I&O Capillary Refill : (ISAIAH REEVES APRN) Departure Communication (Admissions) 1705-I discussed with Dr. Castillo will admit to ICU on DKA protocol insulin drip. (ISAIAH REEVES APRN) Impression Primary Impression: DKA (diabetic ketoacidosis) Disposition: ADMITTED INPATIENT Condition: Stable Admissions Decision to Admit Reason: Admit from ER (General) Decision to Admit/Date: Jan 09, 2021 Time/Decision to Admit Time: 17:05 (ISAIAH REEVES APRN) Departure-Patient Inst. Referrals: PENELOPE JOYCE DO (PCP/Family) Primary Care Physician ATTENDING PHYSICIAN NOTE: I was physically present as attending physician in the emergency department during the care of this patient, but I was not directly involved in the decision making or delivery of care for this patient. (ELIEZER STRATTON MD) ISAIAH REEVES APRN Jan 09, 2021 16:27 ELIEZER STRATTON MD Jan 09, 2021 20:23
[2021-01-09] MEDS ORDERED: ONDANSETRON 4 MG/2 ML (SDV) Z0FRAN IVP ONE (16:30)
[2021-01-09 16:31] LABS: BASOPHILS % (AUTO) 0 % (0-10); EOSINOPHILS # (AUTO) 0.1 10^3/uL (0.0-0.3); EOSINOPHILS % (AUTO) 1 % (0-10); HEMATOCRIT 40 % (35-52); HEMOGLOBIN 12.7 g/dL (11.5-16.0); LYMPHOCYTES # (AUTO) 2.1 X 10^3 (1.0-4.0); LYMPHOCYTES % (AUTO) 21 % (12-44); MEAN CORPUSCULAR HEMOGLOBIN 29 pg (25-34); MEAN CORPUSCULAR HGB CONC 32 g/dL (32-36); MEAN CORPUSCULAR VOLUME 89 fL (80-99); MEAN PLATELET VOLUME 9.6 fL (9.0-12.2); MONOCYTES # (AUTO) 0.5 X 10^3 (0.0-1.0); MONOCYTES % (AUTO) 5 % (0-12); NEUTROPHILS # (AUTO) 7.5 X 10^3 (1.8-7.8); NEUTROPHILS % (AUTO) 73 % (42-75); PLATELET COUNT 432 10^3/uL (130-400); WHITE BLOOD COUNT 10.2 10^3/uL (4.3-11.0)
[2021-01-09 16:32] LABS: BILIRUBIN,URINE NEGATIVE (NEGATIVE); CLARITY,URINE CLEAR; COLOR,URINE YELLOW; GLUCOSE, URINE (UA) 3+ (NEGATIVE); KETONES,URINE 1+ (NEGATIVE); LEUKOCYTE ESTERASE ,URINE NEGATIVE (NEGATIVE); NITRITE,URINE NEGATIVE (NEGATIVE); PROTEIN,URINE NEGATIVE (NEGATIVE)
[2021-01-09 16:47] LABS: BACTERIA,URINE TRACE /HPF; SQUAMOUS EPITHELIAL CELL,UR 0-2 /HPF; WBC,URINE RARE /HPF
[2021-01-09 16:49] LABS: ALBUMIN 3.6 GM/DL (3.2-4.5); POTASSIUM 5.8 MMOL/L (3.6-5.0)
[2021-01-09 16:51] LABS: CALCIUM 9.3 MG/DL (8.5-10.1)
[2021-01-09 16:54] LABS: BILIRUBIN,TOTAL 0.5 MG/DL (0.1-1.0)
[2021-01-09 16:55] LABS: CREATININE SERUM 0.98 MG/DL (0.60-1.30)
[2021-01-09] MEDS ORDERED: inSUlin (REGULAR) HUMAN 1 UNIT/0.01 ML (CHARGE PER UNIT) IV SCH (17:00)
--- NOTE | 2021-01-09 18:03 | Tele-ICU Consult ---
Progress Note 20 y/o female admitted with DKA BS: 648, A PLAN: insulin drip, follow AG Focused Exam Height, Weight, BMI Height: 5'2.00" Weight: 204lbs. 1.0oz. 92.378069qo; 30.00 BMI Method:Stated Laboratory Tests 01/09/21 16:21 REUBEN ESCOTO MD Jan 09, 2021 18:03
[2021-01-09] MEDS ORDERED: LACTATED RINGERS 1,000 ML IV SCH (18:15)
[2021-01-09] MEDS: 1/2 NS IV SOLUTION 1,000 ML IV SCH (19:45)
[2021-01-09] MEDS ORDERED: 1/2 NS IV SOLUTION 1,000 ML IV ONE (19:47)
[2021-01-09] MEDS ORDERED: POTASSIUM CL 10MEQ/50ML IVPB 50 ML IV ONE (19:47)
[2021-01-09] MEDS ORDERED: D5 1/2 NS 1000 ML IV SOLUTION 1,000 ML IV ONE (19:48)
[2021-01-09 20:11] LABS: HEMATOCRIT 37 % (35-52); HEMOGLOBIN 11.8 g/dL (11.5-16.0); MEAN CORPUSCULAR HEMOGLOBIN 28 pg (25-34); MEAN CORPUSCULAR HGB CONC 32 g/dL (32-36); MEAN CORPUSCULAR VOLUME 89 fL (80-99); MEAN PLATELET VOLUME 9.3 fL (9.0-12.2); PLATELET COUNT 400 10^3/uL (130-400); WHITE BLOOD COUNT 12.2 10^3/uL (4.3-11.0)
[2021-01-09 20:38] LABS: CALCIUM 9.3 MG/DL (8.5-10.1)
[2021-01-09 20:42] LABS: CREATININE SERUM 0.8 MG/DL (0.60-1.30)
[2021-01-09 21:25] LABS: POTASSIUM 4.6 MMOL/L (3.6-5.0)
[2021-01-09 22:13] LABS: POTASSIUM 3.9 MMOL/L (3.6-5.0)
[2021-01-09 22:15] LABS: CALCIUM 8.3 MG/DL (8.5-10.1)
[2021-01-09 22:19] LABS: CREATININE SERUM 0.82 MG/DL (0.60-1.30)
[2021-01-09] MEDS: POTASSIUM CL 10MEQ/50ML IVPB 50 ML IV SCH (22:21)
[2021-01-09] MEDS: D5 1/2 NS 1000 ML IV SOLUTION 1,000 ML IV SCH (22:22)
[2021-01-10] VITALS (15 sets, daily range): BP systolic 115–164; BP diastolic 56–118
[2021-01-10] MEDS: POTASSIUM CL 10MEQ/50ML IVPB 50 ML IV SCH ×6 (00:17→10:10)
[2021-01-10] MEDS: 1/2 NS IV SOLUTION 1,000 ML IV SCH ×4 (01:41→10:10)
[2021-01-10] MEDS: D5 1/2 NS 1000 ML IV SOLUTION 1,000 ML IV SCH ×2 (02:06→06:05)
[2021-01-10 04:23] LABS: BASOPHILS % (AUTO) 0 % (0-10); EOSINOPHILS # (AUTO) 0.1 10^3/uL (0.0-0.3); EOSINOPHILS % (AUTO) 1 % (0-10); HEMATOCRIT 31 % (35-52); HEMOGLOBIN 9.9 g/dL (11.5-16.0); LYMPHOCYTES # (AUTO) 4.3 10^3/uL (1.0-4.0); LYMPHOCYTES % (AUTO) 46 % (12-44); MEAN CORPUSCULAR HEMOGLOBIN 28 pg (25-34); MEAN CORPUSCULAR HGB CONC 32 g/dL (32-36); MEAN CORPUSCULAR VOLUME 89 fL (80-99); MEAN PLATELET VOLUME 9.7 fL (9.0-12.2); MONOCYTES # (AUTO) 0.8 10^3/uL (0.0-1.0); MONOCYTES % (AUTO) 9 % (0-12); NEUTROPHILS % (AUTO) 43 % (42-75); PLATELET COUNT 347 10^3/uL (130-400); WHITE BLOOD COUNT 9.4 10^3/uL (4.3-11.0)
[2021-01-10 04:39] LABS: ALBUMIN 2.6 GM/DL (3.2-4.5); POTASSIUM 4.2 MMOL/L (3.6-5.0)
[2021-01-10 04:40] LABS: CALCIUM 8.1 MG/DL (8.5-10.1)
[2021-01-10 04:41] LABS: TOTAL PROTEIN 4.9 GM/DL (6.4-8.2)
[2021-01-10 04:43] LABS: BILIRUBIN,TOTAL 0.2 MG/DL (0.1-1.0)
[2021-01-10 04:44] LABS: PHOSPHORUS 3.8 MG/DL (2.3-4.7)
[2021-01-10 04:45] LABS: CREATININE SERUM 0.61 MG/DL (0.60-1.30)
[2021-01-10 04:48] LABS: MAGNESIUM 1.8 MG/DL (1.6-2.4)
[2021-01-10] MEDS ORDERED: POTASSIUM CL 10MEQ/50ML IVPB 50 ML IV SCH (06:00)
[2021-01-10] MEDS ORDERED: MAGNESIUM 1 GM/100 ML IVPB 100 ML IV SCH (06:00)
[2021-01-10] MEDS ORDERED: KCL 20 MEQ TAB (K-DUR) PO SCH (06:00)
[2021-01-10 08:41] LABS: POTASSIUM 4.4 MMOL/L (3.6-5.0)
[2021-01-10 08:42] LABS: CALCIUM 8.5 MG/DL (8.5-10.1)
[2021-01-10 08:46] LABS: CREATININE SERUM 0.6 MG/DL (0.60-1.30)
[2021-01-10] MEDS ORDERED: INSU100V16 SQ (09:06)
[2021-01-10] MEDS ORDERED: IBUPROFEN 600 MG (MOTRIN) TAB PO PRN (09:15)
[2021-01-10] MEDS ORDERED: INSU100I14 SQ (09:52)
[2021-01-10] MEDS ORDERED: INSU100I10 SQ (09:52)
[2021-01-10] MEDS ORDERED: inSUlin ASPART (NovoLOG) 1 UNIT/0.01 ML (CHARGE PER UNIT) SC SCH ×2 (12:00)
--- NOTE | 2021-01-11 08:15 | Discharge Summary ---
Discharge Summary Hospital Course Problems/Dx: (1) T1DM (type 1 diabetes mellitus) Status: Acute Qualifiers: Qualified Codes: E10.10 - Type 1 diabetes mellitus with ketoacidosis without coma Hospital Course Date of Admission: Jan 09, 2021 at 17:03 Admission Diagnosis : T1DM with ketoacidosis Family Physician/Provider: Diogenes Peres DO Date of Discharge: 01/10/21 Discharge Diagnosis: T1DM with ketoacidosis Hospital Course: Lucero Engel is a 20 year old female with PMH T1DM who was admitted with DKA. She had previously been on an insulin pump but is now only doing short-acting (mealtime) insulin three times daily. She is not following with an singer back tender. She reports that she ran out of her insulin. She has been getting refills from an urgent care provider. She was put on an insulin drip and her mild DKA resolved. She was started on basal/bolus insulin. She was started on Lantus 15 units daily. She was switched to Novolog 10 units three times daily with meals. She was given a three month prescription for her insulin. She needs to re-establish with a PCP and singer back tender. She was discharged home in stable condition. Labs and Pending Lab Test: Laboratory Tests 01/10/21 09:01: Glucometer 118H 01/10/21 10:05: Glucometer 276H 01/10/21 11:00: Glucometer 259H 01/10/21 12:01: Glucometer 163H 01/10/21 15:07: Glucometer 116H Microbiology 01/09/21 MRSA Screen - Final, Complete MRSA not isolated Home Meds Active Novolog Flexpen (Insulin Aspart) 300 Units/3 Ml Solution 10 Units SQ AC 90 Days Lantus Solostar (Insulin Glargine,Hum.rec.anlog) 100 Unit/1 Ml Insuln.pen 15 Unit SQ DAILY 90 Days Hydrocodone-Acetamin 5-325 mg (Hydrocodone/Acetaminophen) 1 Each Tablet 1 Tab PO Q4H PRN Reported Novolog (Insulin Aspart) 100 Unit/1 Ml Susp 15 Unit SQ AC Viibryd (Vilazodone Hydrochloride) 20 Mg Tablet 20 Mg PO DAILY Diphedryl (Diphenhydramine HCl) 25 Mg Tablet 50 Mg PO DAILY PRN Ibuprofen 200 Mg Tablet 400 Mg PO Q6H PRN Assessment/Pt Instructions See instructions Discharge Planning: <30 minutes discharge planning Discharge Instructions Discharge Diet: ADA Diet Activity as Tolerated: Yes Discharge Physical Examination Vital Signs Vital Signs Date Time Temp Pulse Resp B/P (MAP) Pulse Ox O2 Delivery O2 Flow Rate FiO2 01/10/21 15:29 36.9 102 10 155/95 98 Room Air General Appearance: No Apparent Distress, WD/WN HEENT: PERRL/EOMI, Pharynx Normal Respiratory: Lungs Clear, Normal Breath Sounds, No Respiratory Distress Cardiovascular: Regular Rate, Rhythm, No Edema, No Murmur Gastrointestinal: Normal Bowel Sounds, Non Tender, Soft Extremity: Normal Inspection, Non Tender, No Pedal Edema Skin: Normal Color, Warm/Dry Neurologic/Psychiatric: Alert, Oriented x3, No Motor/Sensory Deficits, Normal Mood/Affect Allergies: Coded Allergies: fish derived (Verified Allergy, Intermediate, swelling/hives, 09/15/18) Discharge Summary Date of Admission Jan 09, 2021 at 17:03 Date of Discharge Jan 10, 2021 at 15:25 Discharge Date: Jan 10, 2021 Discharge Time: 15:25 Admission Diagnosis T1DM with ketoacidosis Discharge Diagnosis (1) T1DM (type 1 diabetes mellitus) Status: Acute Qualifiers: Qualified Codes: E10.10 - Type 1 diabetes mellitus with ketoacidosis without coma TOÑO RUBIO MD Jan 11, 2021 08:15
== END 2021-01-10 15:25 | disposition home or self-care (01) | DRG 639 ==
LOC: EDUNIT# 15:34 → ER 15:35 → ICU 17:03
PROVIDERS: ADMIT Internal Medicine; ATTEND Internal Medicine
DX: E10.10 Type 1 diabetes mellitus with ketoacidosis without coma (principal); F41.9 Anxiety disorder, unspecified; F32.A Depression, unspecified; E05.90 Thyrotoxicosis, unspecified without thyrotoxic crisis or storm; Z79.4 Long term (current) use of insulin
CPT/HCPCS: 36415; 80048; 80053; 81000; 82010; 82947; 83036; 83735; 84100; 84703; 85025; 85027; 87081

== ENCOUNTER 2021-01-27 11:19 | Inpatient (IN) | payer BC ==
[~2021-01-27] VITALS: Ht 157 cm; Wt 72.8 kg
[~2021-01-27 11:19] MED LIST changes: +INSU100I10 SQ; +INSU100I14 SQ
[2021-01-27 12:26] LABS: BASOPHILS # (AUTO) 0.1 10^3/uL (0.0-0.1); BASOPHILS % (AUTO) 0 % (0-10); EOSINOPHILS % (AUTO) 0 % (0-10); HEMATOCRIT 43 % (35-52); HEMOGLOBIN 13.3 g/dL (11.5-16.0); LYMPHOCYTES # (AUTO) 2.1 10^3/uL (1.0-4.0); LYMPHOCYTES % (AUTO) 18 % (12-44); MEAN CORPUSCULAR HEMOGLOBIN 28 pg (25-34); MEAN CORPUSCULAR HGB CONC 31 g/dL (32-36); MEAN CORPUSCULAR VOLUME 89 fL (80-99); MEAN PLATELET VOLUME 9.8 fL (9.0-12.2); MONOCYTES # (AUTO) 1.1 10^3/uL (0.0-1.0); MONOCYTES % (AUTO) 9 % (0-12); NEUTROPHILS # (AUTO) 8.4 10^3/uL (1.8-7.8); NEUTROPHILS % (AUTO) 72 % (42-75); PLATELET COUNT 483 10^3/uL (130-400); WHITE BLOOD COUNT 11.7 10^3/uL (4.3-11.0)
--- NOTE | 2021-01-27 12:27 | ED General ---
General Chief Complaint: Glucose Problems Stated Complaint: DIZZINESS,COUGH,NAUSEA Nursing Triage Note: ARRIVED VIA AMB WITHO COMPLAINTS OF HIGH BLOOD SUGARS, NAUSEA, AND COUGH. Source of Information: Patient Exam Limitations: No Limitations (MELINDA EUCEDA STUDENT) History of Present Illness Date Seen by Provider: Jan 27, 2021 Time Seen by Provider: 12:15 Initial Comments This is a 20 YO diabetic female presenting to the ED with N/V, cough, and rhinorrhea starting this morning. Pt states she was in contact with someone who was sick yesterday. Has not taken any OTC medications. Reports that she has been taking her insulin as prescribed, but her blood sugars have been in the 300's and 400's the past couple of days. Denies abdominal pain. States she has had increased urination. Associated Systoms: Cough; No Headaches; Nausea/Vomiting (MELINDA EUCEDA STUDENT) Allergies and Home Medications Allergies Coded Allergies: fish derived (Verified Allergy, Intermediate, swelling/hives, 09/15/18) Patient Home Medication List Home Medication List Reviewed: Yes (MILLIE VANEGAS MD) Alprazolam (Alprazolam) 1 Mg Tablet, 1 MG PO DAILY PRN for ANXIETY, (Reported) Entered as Reported by: DEMOND TAVAREZ on 01/28/21 105 Last Action: Reviewed Ibuprofen (Ibuprofen) 200 Mg Tablet, 400 MG PO Q6H PRN for PAIN-MILD, (Reported) Entered as Reported by: DEMOND TAVAREZ on 09/17/18 0850 Last Action: Reviewed Insulin Aspart (Insulin Aspart Flexpen) 100 Unit/1 Ml Insuln.pen, 10 UNITS SC ACHS, (Reported) Entered as Reported by: DEMOND TAVAREZ on 01/28/21 105 Last Action: Reviewed Insulin Glargine,Hum.rec.anlog (Lantus Solostar) 100 Unit/1 Ml Insuln.pen, 15 UNIT SQ DAILY, (Reported) Entered as Reported by: DEMOND TAVAREZ on 01/28/211049 Last Action: Reviewed Lamotrigine (Lamotrigine) 25 Mg Tablet, 25 MG PO DAILY, (Reported) Entered as Reported by: DEMOND TAVAREZ on 01/28/211049 Last Action: Reviewed Valacyclovir HCl (Valacyclovir) 500 Mg Tablet, 500 MG PO DAILY, (Reported) Entered as Reported by: DEMOND TAVAREZ on 01/28/21 1050 Last Action: Reviewed Discontinued Medications Diphenhydramine HCl (Diphedryl) 25 Mg Tablet, 50 MG PO DAILY PRN for SLEEP, (Reported) Discontinued Reason: Duplicate Order Entered as Reported by: DEMOND TAVAREZ on 09/17/18 0850 Last Action: Discontinued Hydrocodone/Acetaminophen (Hydrocodone-Acetamin 5-325 mg) 1 Each Tablet, 1 TAB PO Q4H PRN for PAIN-MODERATE (5-7) Discontinued Reason: Duplicate Order Prescribed by: ELIEZER HOWARD on 06/21/2052 Last Action: Discontinued Insulin Aspart (Novolog Flexpen) 300 Units/3 Ml Solution, 10 UNITS SQ AC Discontinued Reason: Duplicate Order Prescribed by: TOÑO RUBIO on 01/10/21951 Last Action: Discontinued Insulin Glargine,Hum.rec.anlog (Lantus Solostar) 100 Unit/1 Ml Insuln.pen, 15 UNIT SQ DAILY Discontinued Reason: Duplicate Order Prescribed by: TOÑO RUBIO on 01/10/21951 Last Action: Discontinued Oxycodone HCl/Acetaminophen (Oxycodone-Acetaminophen 5-325) 1 Each Tablet, 1 EACH PO Q4H PRN for PAIN-MODERATE Discontinued Reason: Duplicate Order Prescribed by: ISAIAH REEVES on 06/26/202143 Last Action: Discontinued Vilazodone Hydrochloride (Viibryd) 20 Mg Tablet, 20 MG PO DAILY, (Reported) Discontinued Reason: Duplicate Order Entered as Reported by: DEMOND TAVAREZ on 09/17/18 0851 Last Action: Discontinued Review of Systems Review of Systems Constitutional: No chills, No fever EENTM: see HPI Respiratory: cough; No short of breath Cardiovascular: No chest pain Gastrointestinal: see HPI; No abdominal pain; nausea, vomiting Genitourinary: see HPI; No dysuria; other (polyuria) Musculoskeletal: no symptoms reported Skin: no symptoms reported Psychiatric/Neurological: Denies Headache, Denies Numbness Hematologic/Lymphatic: No Symptoms Reported Immunological/Allergic: no symptoms reported (MELINDA EUCEDA MED STUDENT) All Other Systems Reviewed Negative Unless Noted: Yes (Negative excepted noted.) (MELINDA EUCEDA MED STUDENT) Past Igtidcu-Ocuwhg-Wlribp Hx Patient Social History Smoking Status: Never a Smoker Substance use?: Yes Substance type: Marijuana Alcohol Use?: Yes Alcohol Frequency: Once in a while (MELINDA EUCEDA MED STUDENT) Immunizations Up To Date PED Vaccines UTD: Yes First/Initial COVID19 Vaccinat: 05/03 COVID19 Vaccine Tax Evaluator: MODERNMiguel Ángel (MELINDA EUCEDA STUDENT) Seasonal Allergies Seasonal Allergies: Yes (MELINDA EUCEDA STUDENT) Past Medical History Surgeries: Yes (RIGHT KNEE) Orthopedic Respiratory: No Cardiac: No Neurological: No Female Reproductive Disorders: Denies Genitourinary: No Gastrointestinal: No Musculoskeletal: No Endocrine: Yes Hyperthyroidism, Diabetes, Insulin dep HEENT: No Cancer: No Psychosocial: Yes Anxiety, Depression Integumentary: No Blood Disorders: No (MELINDA EUCEDA STUDENT) Family Medical History Heart Disease, Diabetes, Hypertension Mother has hypothyroidism Father has hyperthyroidism sister has hypothyroidism,depression, anxiety half brother peanut and shellfish allergries (MELINDA EUCEDA STUDENT) Physical Exam Vital Signs Vital Signs - First Documented 01/27/21 11:55 Temp 36.3 Pulse 137 Resp 16 B/P (MAP) 157/93 (114) Pulse Ox 99 O2 Delivery Room Air (MILLIE VANEGAS MD) Vital Signs Capillary Refill : Less Than 3 Seconds (MELINDA EUCEDA STUDENT) Height, Weight, BMI Height: 5'2.00" Weight: 204lbs. 1.0oz. 92.877687wp; 30.00 BMI Method:Stated General Appearance: WD/WN, Mild Distress Eyes: Bilateral Eye Normal Inspection, Bilateral Eye EOMI HEENT: PERRL/EOMI; No Scleral Icterus (L), No Scleral Icterus (R) Respiratory: Lungs Clear, Normal Breath Sounds, No Accessory Muscle Use, No Respiratory Distress Cardiovascular: No Edema, Tachycardia Gastrointestinal: Non Tender, Soft; No Distended, No Guarding Extremity: Normal Inspection, Normal Range of Motion, No Pedal Edema Neurologic/Psychiatric: Alert, Oriented x3, No Motor/Sensory Deficits, Normal Mood/Affect Skin: Normal Color, Warm/Dry (MELINDA EUCEDA MED STUDENT) Progress/Results/Core Measures Suspected Sepsis SIRS Temperature: Pulse: 137 Respiratory Rate: 16 Blood Pressure 157 /93 Mean: 114 (MELINDA EUCEDA [employer]gae[employer] STUDENT) Results/Orders Lab Results Laboratory Tests Test 01/27/21 12:00 01/27/21 12:06 01/27/21 12:30 01/27/21 13:14 Range/Units White Blood Count 11.7 H 4.3-11.0 10^3/uL Red Blood Count 4.76 3.80-5.11 10^6/uL Hemoglobin 13.3 11.5-16.0 g/dL Hematocrit 43 35-52 % Mean Corpuscular Volume 89 80-99 fL Mean Corpuscular Hemoglobin 28 25-34 pg Mean Corpuscular Hemoglobin Concent 31 L 32-36 g/dL Red Cell Distribution Width 12.6 10.0-14.5 % Platelet Count 483 H 130-400 10^3/uL Mean Platelet Volume 9.8 9.0-12.2 fL Immature Granulocyte % (Auto) 1 % Neutrophils (%) (Auto) 72 42-75 % Lymphocytes (%) (Auto) 18 12-44 % Monocytes (%) (Auto) 9 0-12 % Eosinophils (%) (Auto) 0 0-10 % Basophils (%) (Auto) 0 0-10 % Neutrophils # (Auto) 8.4 H 1.8-7.8 10^3/uL Lymphocytes # (Auto) 2.1 1.0-4.0 10^3/uL Monocytes # (Auto) 1.1 H 0.0-1.0 10^3/uL Eosinophils # (Auto) 0.0 0.0-0.3 10^3/uL Basophils # (Auto) 0.1 0.0-0.1 10^3/uL Immature Granulocyte # (Auto) 0.1 0.0-0.1 10^3/uL Sodium Level 133 L 135-145 MMOL/L Potassium Level 5.2 H 3.6-5.0 MMOL/L Chloride Level 99 98-107 MMOL/L Carbon Dioxide Level 8 *L 21-32 MMOL/L Anion Gap 26 H 5-14 MMOL/L Blood Urea Nitrogen 14 7-18 MG/DL Creatinine 1.26 0.60-1.30 MG/DL Estimat Glomerular Filtration Rate 64 BUN/Creatinine Ratio 11 Glucose Level 577 *H 70-105 MG/DL Calcium Level 9.6 8.5-10.1 MG/DL Corrected Calcium 9.6 8.5-10.1 MG/DL Total Bilirubin 0.3 0.1-1.0 MG/DL Aspartate Amino Transf (AST/SGOT) 42 H 5-34 U/L Alanine Aminotransferase (ALT/SGPT) 46 0-55 U/L Alkaline Phosphatase 176 H 40-136 U/L Total Protein 8.1 6.4-8.2 GM/DL Albumin 4.0 3.2-4.5 GM/DL Beta-Hydroxybutyrate (Chem panel) 8.68 H 0.00-0.27 MMOL/L Glucometer 509 *H 486 *H 70-110 MG/DL Urine Color YELLOW Urine Clarity CLEAR Urine pH 5.5 5-9 Urine Specific [place] 1.025 H 1.016-1.022 Urine Protein NEGATIVE NEGATIVE Urine Glucose (UA) 3+ H NEGATIVE Urine Ketones 3+ H NEGATIVE Urine Nitrite NEGATIVE NEGATIVE Urine Bilirubin NEGATIVE NEGATIVE Urine Urobilinogen 0.2 < = 1.0 MG/DL Urine Leukocyte Esterase NEGATIVE NEGATIVE Urine RBC (Auto) TRACE-I H NEGATIVE Urine RBC RARE /HPF Urine WBC RARE /HPF Urine Squamous Epithelial Cells 2-5 /HPF Urine Crystals NONE /LPF Urine Bacteria NEGATIVE /HPF Urine Casts NONE /LPF Urine Mucus NEGATIVE /LPF Urine Culture Indicated NO Urine Test NEGATIVE NEGATIVE Influenza Type A (RT-PCR) Detected H Not Detecte Influenza Type B (RT-PCR) Not Detected Not Detecte SARS-CoV-2 RNA (RT-PCR) Not Detected Not Detecte Test 01/27/21 14:12 Range/Units Blood Gas Puncture Site LR Blood Gas Patient Temperature 36.3 Arterial Blood pH 7.13 *L 7.37-7.43 Arterial Blood Partial Pressure CO2 14 *L 35-45 MMHG Arterial Blood Partial Pressure O2 124 H 79-93 MMHG Arterial Blood HCO3 5 *L 23-27 MMOL/L Arterial Blood Total CO2 5.1 *L 21.0-31.0 MMOL/L Arterial Blood Oxygen Saturation 98 94-100 % Arterial Blood Base Excess -23.2 L -2.5-2.5 MMOL/L Liang Test YES-POS Blood Gas Ventilator Setting NO Blood Gas Inspired Oxygen RA (MILLIE VANEGAS MD) My Orders Orders - MILLIE VANEGAS MD Ed Iv/Invasive Line Start (01/27/21 12:19) Cbc With Automated Diff (01/27/21 12:19) Comprehensive Metabolic Panel (01/27/21 12:19) Ua Culture If Indicated (01/27/21 12:19) Hcg,Qualitative Urine (01/27/21 12:19) Ns Iv 1000 Ml (Sodium Chloride 0.9%) (01/27/21 12:30) Beta Hydroxybutyrate (01/27/21 12:19) Ondansetron Injection (Zofran Injectio (01/27/21 12:30) Covid 19 Inhouse Test (01/27/21 12:26) Ns Iv 1000 Ml (Sodium Chloride 0.9%) (01/27/21 13:00) Influenza A And B By Pcr (01/27/21 12:30) Ed Admission (Communication) (01/27/21 13:27) Arterial Blood Gas (01/27/21 13:36) (MILLIE VANEGAS MD) Medications Given in ED (MILLIE VANEGAS MD) Vital Signs/I&O 01/27/21 11:55 Temp 36.3 Pulse 137 Resp 16 B/P (MAP) 157/93 (114) Pulse Ox 99 O2 Delivery Room Air 01/28/21 00:00 Intake Total 2000 ml Balance 2000 ml (MILLIE VANEGAS MD) Vital Signs/I&O Capillary Refill : Less Than 3 Seconds (MELINDA EUCEDA MED STUDENT) Blood Pressure Mean: 114 Point of Care Testing Finger Stick Blood Glucose: 509 Blood Glucose Action Taken: ISAIAH DE LA ROSAIED. (MELINDA EUCEDA MED STUDENT) Progress Note #1: Time: 12:55 Progress Note 20-year-old female who presents to the emergency department with a chief complaint of generalized fatigue, weakness, nausea vomiting and runny nose for the last 24 hours. 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 She states she has been in DKA multiple times. States that she was in contact with somebody with similar symptoms within the last day. Admits that her blood sugars have been running in the 300 to 400 range. Denies any fevers or chills. No shortness of breath. She has been coughing a little bit in the room. She received 1 [place] shot back in May, never got her second. Does not currently have a lead radiation therapist. States she has been using her insulin as prescribed. Denies illicit drugs or alcohol. No specific abdominal pain. No diarrhea. No burning with urination. No abnormal vaginal discharge. She states it has been 1 month since her last. And is not sexually active. No wounds or rashes. Has not had a flu shot either. Physical examination is remarkable for tachycardia in the 130s to 140s. Dry oral mucosa. Clear lungs. Mildly tender abdomen in the suprapubic region without peritoneal signs. No swelling in her legs. Evaluation today includes CBC, chemistry, urinalysis, test, Covid swab. Beta hydroxybutyric acid level. She is initially given Zofran 8 mg and 2 L of IV fluids. Urine is not infected on urinalysis. Sodium is 133 potassium is a tad bit high at 5.2. Blood glucose is not back yet neither is CO2 or anion gap. Will treat pending further labs Progress Note #2: Time: 13:27 Progress Note Reevaluated patient, she states her nausea is better. She is asking for sips of clear liquids which we will give her. Patient is ambulatory to the bathroom. I discussed the case with Dr. Mckeon who is on for the hospitalist service. She accepts the patient for admission to the ICU. She is getting a 5 unit regular insulin bolus along with a drip started at 5 units an hour. (MILLIE VANEGAS MD) Critical Care Note Critical Care Start Time: 12:15 Stop Time: 13:30 Total Time (minutes) 30 minutes critical care time in the evaluation and management of this type I diabetic with influenza. Time includes initial evaluation and management, review and interpretation of laboratory studies, review of the medical record, fluid resuscitation, management of insulin drip, frequent glucose checks, discussion with admitting provider. (MILLIE VANEGAS MD) Departure Communication (Admissions) Time/Spoke to Admitting Phy: 13:[address] Mckeon; will do que'd orders (MILLIE VANEGAS MD) Impression Primary Impression: DKA, type 1 Qualified Codes: E10.10 - Type 1 diabetes mellitus with ketoacidosis without coma Additional Impression: Influenza A Disposition: ADMITTED INPATIENT Condition: Stable Admissions Decision to Admit Reason: Admit from ER (General) Decision to Admit/Date: Jan 27, 2021 Time/Decision to Admit Time: 12:58 (MILLIE VANEGAS MD) Departure-Patient Inst. Referrals: PENELOPE JOYCE DO (PCP/Family) Primary Care Physician Verification and Attestation of Medical Student E/M Service A medical student performed and documented this service in my presence. I rev iewed and verified all information documented by the medical student and made modifications to such information, when appropriate. I personally performed the physical exam and medical decision making. Millie Vanegas, Jan 28, 2021,18:40 (MILLIE VANEGAS MD) MELINDA EUCEDA MED STUDENT Jan 27, 2021 12:27 MILLIE VANEGAS MD Jan 27, 2021 12:58
[2021-01-27] MEDS ORDERED: ONDANSETRON 4 MG/2 ML (SDV) Z0FRAN IVP ONE (12:30)
[2021-01-27] MEDS ORDERED: NS IV 1000 ML 1,000 ML IV SCH ×3 (12:30→16:15)
[2021-01-27 12:42] LABS: BILIRUBIN,URINE NEGATIVE (NEGATIVE); CLARITY,URINE CLEAR; COLOR,URINE YELLOW; GLUCOSE, URINE (UA) 3+ (NEGATIVE); KETONES,URINE 3+ (NEGATIVE); LEUKOCYTE ESTERASE ,URINE NEGATIVE (NEGATIVE); NITRITE,URINE NEGATIVE (NEGATIVE); PH,URINE 5.5 (5-9); PROTEIN,URINE NEGATIVE (NEGATIVE)
[2021-01-27 12:42] LABS: BILIRUBIN,TOTAL 0.3 MG/DL (0.1-1.0); CALCIUM 9.6 MG/DL (8.5-10.1); CREATININE SERUM 1.26 MG/DL (0.60-1.30); POTASSIUM 5.2 MMOL/L (3.6-5.0); TOTAL PROTEIN 8.1 GM/DL (6.4-8.2)
[2021-01-27 12:51] LABS: BACTERIA,URINE NEGATIVE /HPF; RBC,URINE RARE /HPF; WBC,URINE RARE /HPF
[2021-01-27] MEDS ORDERED: inSUlin (REGULAR) HUMAN 1 UNIT/0.01 ML (CHARGE PER UNIT) IV SCH (13:30)
--- NOTE | 2021-01-27 14:13 | History & Physical-Hospitalist ---
BRETT PIÑA MED STUDENT 01/27/21 1412: History of Present Illness HPI/Chief Complaint CC- DKA Ms. Engel is a 20yo female with hx of T1DM and depression. She has had multiple occurrences of DKA and has been hospitalized a few times for it. She was most recently in [facility] ICU with DKA about a month ago. She states that today she noticed that he blood sugar would not go down despite taking her insulin. She also noted to have nausea and multiple episodes of vomiting. She states that it started this morning when she woke up and that she had been feeling fine yesterday. Since then the symptoms have continued to get progressively worse. She does complain of Nausea, vomiting, headache, some chest pain associated w/ vomiting, diarrhea, cough, and chills. She denies Abdominal pain, SOB, Leg and foot pain, Dysuria, other bowel/bladder problems. She has been insulin dependent since 18 months old. Her last hospitalization for DKA was an overnight stay and states she was doing okay since then until today. She does have a surgical history of R ACL surgery. She is a marijuana user and occasionally drinks alcohol. Her only daily medication is lamotragine for depression. She also tested positive for influenza A. She is admitted to ICU on 01/27 Source: patient Exam Limitations: no limitations Date Seen 01/27/21 Time Seen by a Provider: 14:10 Attending Physician Crystal Aguilera DO PCP Diogenes Peres DO Referring Physician Date of Admission 01/27/2021 Home Medications & Allergies Home Medications Reviewed patient Home Medication Reconciliation performed by pharmacy medication reconciliations contact lens technician and/or nursing. Patients Allergies have been reviewed. Allergies Allergies Coded Allergies fish derived (Verified Allergy, Intermediate, swelling/hives, 09/15/18) Past Hkfygrb-Eshnbu-Yinirq Hx Patient Social History Smoking Status: Never a Smoker Substance use?: Yes Substance type: Marijuana Alcohol Use?: Yes Alcohol Frequency: Once in a while Immunizations Up To Date First/Initial COVID19 Vaccinat: 05/03 PED Vaccines UTD: Yes Seasonal Allergies Seasonal Allergies: Yes Current Status Advance Directives: Yes Primary Language: Khmer Preferred Spoken Language: Khmer Past Medical History Surgeries: Orthopedic Hyperthyroidism, Diabetes, Insulin dep Anxiety, Depression Blood Disorders: No Family Medical History Heart Disease, Diabetes, Hypertension Mother has hypothyroidism Father has hyperthyroidism sister has hypothyroidism,depression, anxiety half brother peanut and shellfish allergries Review of Systems Constitutional: chills; No dizziness, No fever; malaise; No weakness EENTM: No hearing loss, No ear pain, No blurred vision, No vision loss Respiratory: cough; No hemoptysis, No phlegm, No short of breath Cardiovascular: chest pain; No edema, No palpitations, No syncope Gastrointestinal: No abdominal pain, No constipation; diarrhea; No dysphagia, No hematemesis, No heartburn, No melena; nausea, vomiting Genitourinary: No dysuria, No frequency, No hematuria Musculoskeletal: No joint pain Skin: No lesions, No rash Psychiatric/Neurological: Depressed Physical Exam Physical Exam Vital Signs Vital Signs - First Documented 01/27/21 11:55 Temp 36.3 Pulse 137 Resp 16 B/P (MAP) 157/93 (114) Pulse Ox 99 O2 Delivery Room Air Capillary Refill : Less Than 3 Seconds Height, Weight, BMI Height: 5'2.00" Weight: 204lbs. 1.0oz. 92.793133mj; 30.00 BMI Method:Stated General Appearance: No Apparent Distress, WD/WN, Other (Pt is lying in bed on side in dark room, sleepy. She is not in distress but appears a bit uncomfortable. ) Eyes: Bilateral Eye Normal Inspection, Bilateral Eye PERRL, Bilateral Eye EOMI HEENT: PERRL/EOMI, Moist Mucous Membranes Neck: Supple Respiratory: Chest Non Tender, Lungs Clear, Normal Breath Sounds, No Accessory Muscle Use, No Respiratory Distress Cardiovascular: Regular Rate, Rhythm, No Edema, No Murmur, Normal Peripheral Pulses Gastrointestinal: Normal Bowel Sounds, No Organomegaly, No Pulsatile Mass, Non Tender, Soft Rectal: Deferred Extremity: Normal Capillary Refill, Normal Inspection, Non Tender, No Calf Tenderness, No Pedal Edema Neurologic/Psychiatric: Alert, Oriented x3, Normal Mood/Affect Skin: Normal Color, Warm/Dry Results Results/Procedures Labs Laboratory Tests 01/27/21 12:00 Patient resulted labs reviewed. Assessment/Plan Admission Diagnosis DKA, Influenza A Admission Status: Observation Assessment and Plan DKA T1DM -Fluids -Insulin -Monitor K, will likely change with DKA correction -Anion Gap of 26, Urine Ketones 3+ Influenza A -Tamiflu -Monitor for signs of superinfection Hyponatremia -133, will check tomorrow -Pt drinking lots of water Hyperkalemia -5.2, Continue to monitor -Daily labs -Will likely Correct with resolution of DKA Marijuana Use -Encourage cessation Nausea/Vomiting/Diarrhea -Pt has gotten zofran and feels better -Continue to monitor but should improve with DKA resolution Supervisory-Addendum Brief Verification & Attestation Participated in pt care: history, physical Personally performed: exam Care discussed with: Medical Student Procedures: n/a n/a CRYSTAL AGUILERA DO 01/28/21 0537: History of Present Illness HPI/Chief Complaint CC: DKA with Influenza A HPI: This is a 23yo[place] clinic Pt [place], [place] who has a PMH of Type I DM, since 18 months old, who presented with weakness and lethargy, found to have Influenza A and findings consistent with DKA. She was placed in ICU on DKA protocol and will be monitored closely and will follow along with aggressive IV fluids and Tamiflu initiation. Source: patient Exam Limitations: no limitations Past Msmixpg-Nbtnzq-Wmvzgl Hx Patient Social History Marrital Status: single Employed/Student: unemployed Smoking Status: Never a Smoker Past Medical History Diabetes, Insulin dep Review of Systems Constitutional: see HPI EENTM: no symptoms reported Respiratory: cough Physical Exam Physical Exam General Appearance: No Apparent Distress, Other (Pt is lying in bed on side in dark room, sleepy. She is not in distress but appears a bit uncomfortable. ) Eyes: Right Eye Normal Inspection, Right Eye PERRL HEENT: PERRL/EOMI, Normal ENT Inspection, Pharynx Normal, Moist Mucous Membranes Neck: Full Range of Motion, Normal Inspection, Non Tender Respiratory: Chest Non Tender, Lungs Clear, Normal Breath Sounds, No Accessory Muscle Use, No Respiratory Distress Cardiovascular: Regular Rate, Rhythm, No Edema, No Gallop, No JVD, No Murmur, Normal Peripheral Pulses Gastrointestinal: Normal Bowel Sounds, No Organomegaly, No Pulsatile Mass, Non Tender, Soft Back: Normal Inspection, No CVA Tenderness, No Vertebral Tenderness Extremity: Normal Capillary Refill, Normal Inspection, Normal Range of Motion, Non Tender, No Calf Tenderness, No Pedal Edema Neurologic/Psychiatric: Alert, Oriented x3, No Motor/Sensory Deficits, Normal Mood/Affect Skin: Normal Color, Warm/Dry Lymphatic: No Adenopathy Assessment/Plan Admission Diagnosis Assessment: DKA Influenza A Plan: Supportive care Insulin drip Tamiflu Admission Status: Inpatient Order (span 2 midnights) Reason for Inpatient Admission: DKA Diagnosis/Problems Diagnosis/Problems (1) DKA (diabetic ketoacidosis) Status: Acute (2) Influenza A Supervisory-Addendum Brief Verification & Attestation Participated in pt care: history, MDM, physical Personally performed: exam, history, MDM, supervision of care Care discussed with: Medical Student Procedures: n/a Results interpretation: Verified all documentation Verification and Attestation of Medical Student E/M Service A medical student performed and documented this service in my presence. I reviewed and verified all information documented by the medical student and made modifications to such information, when appropriate. I personally performed the physical exam and medical decision making. Crystal Aguilera, Jan 28, 2021,05:37 BRETT PIÑA MED STUDENT Jan 27, 2021 14:12 CRYSTAL AGUILERA DO Jan 28, 2021 05:37
[2021-01-27 14:21] LABS: ABG BASE EXCESS -23.2 MMOL/L (-2.5-2.5); ABG OXYGEN SATURATION 98 % (94-100); ABG PO2 124 MMHG (79-93); ALLENS TEST YES-POS; INSPIRED O2 RA; VENTILATOR NO
[2021-01-27 14:23] LABS: ABG PCO2 14 MMHG (35-45); ABG PH 7.13 (7.37-7.43); ABG TCO2 5.1 MMOL/L (21.0-31.0); PATIENT TEMP 36.3
[2021-01-27] MEDS ORDERED: SUCRALFATE 1 GM (CARAFATE) TAB PO ONE (14:45)
[2021-01-27] MEDS ORDERED: ANTACID SUSP 30 ML UDC (MYLANTA) PO ONE (14:45)
[2021-01-27] MEDS ORDERED: LIDOCAINE 2% VISCOUS 15 ML UDC PO ONE (14:45)
[2021-01-27] MEDS ORDERED: ONDANSETRON 4 MG/2 ML (SDV) Z0FRAN IVP PRN (16:15)
[2021-01-27] MEDS ORDERED: diphenhydrAMINE 25 MG TAB (BENADRYL) PO PRN (16:15)
[2021-01-27] MEDS: POTASSIUM CL 10MEQ/50ML IVPB 50 ML IV SCH ×6 (16:15→23:04)
[2021-01-27] MEDS ORDERED: ALPRAZolam 0.25 MG (XANAX) TAB PO PRN (16:15)
[2021-01-27] MEDS ORDERED: ACETAMINOPHEN 325 MG TABLET PO PRN (16:15)
[2021-01-27] MEDS ORDERED: LOPERAMIDE 2 MG (IMODIUM) TABLET PO PRN (16:15)
[2021-01-27] MEDS: 1/2 NS IV SOLUTION 1,000 ML IV SCH ×3 (16:15→23:03)
[2021-01-27] MEDS ORDERED: PROMETHAZINE INJ 25 MG/ML (PHENERGAN) AMP IM PRN (16:15)
[2021-01-27] MEDS ORDERED: MELATONIN 3 MG TABLET PO PRN (16:15)
[2021-01-27] MEDS ORDERED: DOCUSATE SODIUM 100 MG (COLACE) CAP PO PRN (16:15)
[2021-01-27] MEDS ORDERED: morphine INJ 10 MG/ML 1ML (SYR OR VIAL) IVP PRN (16:15)
[2021-01-27] MEDS ORDERED: CALCIUM CARBONATE 500 MG (TUMS) TAB.CHEW PO PRN (16:15)
[2021-01-27] MEDS ORDERED: HYDROcodone/APAP 5 MG/325 MG (LORTAB) TAB PO PRN (16:15)
[2021-01-27] MEDS: D5 1/2 NS 1000 ML IV SOLUTION 1,000 ML IV SCH ×2 (16:36→20:38)
[2021-01-27 16:42] VITALS: BP 137/77
[2021-01-27] MEDS ORDERED: RT-ALBUTEROL SULF 2.5 MG/3 ML PRE-MIX VIAL INH PRN (17:00)
[2021-01-27] MEDS: ENOXAPARIN 40 MG/0.4 ML (LOVENOX) SYR SC SCH (17:36)
--- NOTE | 2021-01-27 18:02 | Tele-ICU Consult ---
History of Present Illness History of Present Illness Date Seen by Provider: Jan 27, 2021 Time Seen by Provider: 18:01 Date of Admission Allergies and Home Medications Allergies Coded Allergies: fish derived (Verified Allergy, Intermediate, swelling/hives, 09/15/18) Home Medications Diphenhydramine HCl 25 Mg Tablet, 50 MG PO DAILY PRN for SLEEP, (Reported) Hydrocodone/Acetaminophen 1 Each Tablet, 1 TAB PO Q4H PRN for PAIN-MODERATE (5- 7) Prescribed by: ELIEZER HOWARD on 06/21/20851 Ibuprofen 200 Mg Tablet, 400 MG PO Q6H PRN for PAIN-MILD, (Reported) Insulin Aspart 300 Units/3 Ml Solution, 10 UNITS SQ AC Prescribed by: TOÑO RUBIO on 01/10/21951 Insulin Glargine,Hum.rec.anlog 100 Unit/1 Ml Insuln.pen, 15 UNIT SQ DAILY Prescribed by: TOÑO RUBIO on 01/10/21951 Oxycodone HCl/Acetaminophen 1 Each Tablet, 1 EACH PO Q4H PRN for PAIN-MODERATE Prescribed by: ISAIAH REEVES on 06/26/202143 Vilazodone Hydrochloride 20 Mg Tablet, 20 MG PO DAILY, (Reported) Past Medical/Social/Family Hx Patient Social History Tobacco Use?: No Smoking Status: Never a Smoker Smokeless Tobacco Frequency: Never a User Use of E-Cig and/or Vaping dev: No Substance use?: Yes Substance type: Marijuana Substance frequency: Couple times a week Alcohol Use?: Yes Alcohol type: Wine Alcohol Frequency: Several times a month ON WEEKENDS Pt stated abuse/neglect: No Immunizations Up To Date Influenza Vaccine Up-to-Date: No; Not Current First/Initial COVID19 Vaccinat: 05/03 Tetanus Booster (TDap): Unknown Hepatitis A: No Hepatitis B: No TB Skin Test: None Current Status status: No status: No Advance Directives: No Communicates: Verbally Primary Language: Kazakh Preferred Spoken Language: Kazakh Is interpretation needed?: No Implanted or Applied Medical D: None Family Medical History Family Hx: Mother has hypothyroidism Father has hyperthyroidism sister has hypothyroidism,depression, anxiety half brother peanut and shellfish allergries Review of Systems Constitutional: see HPI Sepsis Event Evaluation Height, Weight, BMI Height: 5'2.00" Weight: 204lbs. 1.0oz. 92.075152se; 29.69 BMI Method:Stated Exam Exam Patient acknowledged, consented, and participated in this virtual visit which was conducted using real time audio/video Vital Signs Date Time Temp Pulse Resp B/P (MAP) Pulse Ox O2 Delivery O2 Flow Rate FiO2 01/27/21 17:28 37.4 117 20 143/101 98 Room Air 01/27/21 16:42 36.6 112 97 21 01/27/21 16:15 Room Air 01/27/21 16:08 36.6 112 18 137/77 97 Room Air 01/27/21 15:55 91 16 126/97 97 Room Air 01/27/21 11:55 36.3 137 16 157/93 (114) 99 Room Air Height & Weight Height: 5'2.00" Weight: 204lbs. 1.0oz. 92.684790xj; 29.69 BMI Method:Stated General Appearance: No Apparent Distress, WD/WN, Other (Pt is lying in bed on side in dark room, sleepy. She is not in distress but appears a bit uncomfortable. ) HEENT: PERRL/EOMI, Moist Mucous Membranes Neck: Supple Respiratory: Chest Non Tender, Lungs Clear, Normal Breath Sounds, No Accessory Muscle Use, No Respiratory Distress Cardiovascular: Regular Rate, Rhythm, No Edema, No Murmur, Normal Peripheral Pulses Capillary Refill: Less Than 3 Seconds Extremity: Normal Capillary Refill, Normal Inspection, Non Tender, No Calf Tenderness, No Pedal Edema Neurologic/Psychiatric: Alert, Oriented x3, Normal Mood/Affect Skin: Normal Color, Warm/Dry Results Lab Laboratory Tests 01/27/21 12:00 Assessment/Plan Assessment/Plan (Tele-ICU Physician , consultation) Available chart/ vitals / labs / Images reviewed H&P is from ER notes Patient's information available about PMH, Shx, Fhx allergy reviewed in EMR. ROS as per chart and RN report Now in ICU, hemodynamically stable Video assessment done using teleICU camera, rest of exam as per RN Discussed with RN. Consultants: Hospital course: 01/27 - DKA and influenza A A/P DKA *Insulin drip continue to monitor for resolution of acidosis, AG and electrolytes. Continue hydration. Hyperkalemia - mild follow closely Influenza A - tamilu Lines : (Central Line Necessity Reviewed) Hurst: OG: Nutrition: Analgesia: Anxiety/ delirium VTE Prophylaxis: jose 40 Stress Ulcer Prophylaxis: ppi Plans in collaboration with bedside consultants and IM MDs. Discussed with RN to reach out if any questions or concerns A total of 25 minutes of critical care time was devoted to this patient today, required to treat and/or prevent further deterioration of critical care condition ( as above ) . LEONOR BUTTERFIELD MD Jan 27, 2021 18:02
[2021-01-27 18:32] LABS: HEMATOCRIT 37 % (35-52); HEMOGLOBIN 11.3 g/dL (11.5-16.0); MEAN CORPUSCULAR HEMOGLOBIN 27 pg (25-34); MEAN CORPUSCULAR HGB CONC 31 g/dL (32-36); MEAN CORPUSCULAR VOLUME 88 fL (80-99); MEAN PLATELET VOLUME 9.4 fL (9.0-12.2); PLATELET COUNT 400 10^3/uL (130-400); WHITE BLOOD COUNT 9.6 10^3/uL (4.3-11.0)
[2021-01-27 18:46] LABS: POTASSIUM 4.3 MMOL/L (3.6-5.0)
[2021-01-27 18:47] LABS: CALCIUM 8.3 MG/DL (8.5-10.1)
[2021-01-27 18:52] LABS: CREATININE SERUM 0.81 MG/DL (0.60-1.30)
[2021-01-27] MEDS: SENNA W/DOCUSATE (SENOKOT S) TABLET PO SCH (20:33)
[2021-01-27] MEDS: OSELTAMIVIR 75 MG (TAMIFLU) CAPSULE PO SCH (20:33)
[2021-01-27] MEDS: polyethylene glycoL POWDER 17 GM (MIRALAX) PACK PO SCH (20:33)
[2021-01-27] MEDS: FAMOTIDINE 20MG/2ML IV (PEPCID) IVP SCH (20:33)
[2021-01-27 22:41] LABS: POTASSIUM 3.9 MMOL/L (3.6-5.0)
[2021-01-27 22:42] LABS: CALCIUM 8.3 MG/DL (8.5-10.1)
[2021-01-27 22:47] LABS: CREATININE SERUM 0.98 MG/DL (0.60-1.30)
[2021-01-28 00:59] LABS: POTASSIUM 3.9 MMOL/L (3.6-5.0)
[2021-01-28 01:01] LABS: CALCIUM 8.2 MG/DL (8.5-10.1)
[2021-01-28 01:05] LABS: CREATININE SERUM 0.85 MG/DL (0.60-1.30)
[2021-01-28] MEDS: D5 1/2 NS 1000 ML IV SOLUTION 1,000 ML IV SCH ×6 (02:02→22:25)
[2021-01-28] MEDS: POTASSIUM CL 10MEQ/50ML IVPB 50 ML IV SCH ×8 (02:02→22:22)
[2021-01-28] MEDS: 1/2 NS IV SOLUTION 1,000 ML IV SCH ×5 (03:10→19:48)
[2021-01-28 04:43] LABS: POTASSIUM 3.6 MMOL/L (3.6-5.0)
[2021-01-28 04:44] LABS: CALCIUM 8.1 MG/DL (8.5-10.1)
[2021-01-28 04:49] LABS: CREATININE SERUM 0.8 MG/DL (0.60-1.30)
[2021-01-28 08:31] LABS: CALCIUM 8.4 MG/DL (8.5-10.1)
[2021-01-28 08:36] LABS: CREATININE SERUM 0.73 MG/DL (0.60-1.30)
[2021-01-28] MEDS: FAMOTIDINE 20MG/2ML IV (PEPCID) IVP SCH ×2 (08:47→19:50)
[2021-01-28] MEDS: polyethylene glycoL POWDER 17 GM (MIRALAX) PACK PO SCH ×2 (08:47→19:49)
[2021-01-28] MEDS: SENNA W/DOCUSATE (SENOKOT S) TABLET PO SCH ×2 (08:48→19:49)
[2021-01-28] MEDS: OSELTAMIVIR 75 MG (TAMIFLU) CAPSULE PO SCH ×2 (08:48→19:49)
--- NOTE | 2021-01-28 10:43 | Tele-ICU Progress Note ---
Subjective Date Seen by a Provider: Jan 28, 2021 Time Seen by a Provider: 10:42 Sepsis Event Evaluation Height, Weight, BMI Height: 5'2.00" Weight: 204lbs. 1.0oz. 92.867526dn; 29.69 BMI Method:Stated Exam Exam Patient acknowledged, consented, and participated in this virtual visit which was conducted using real time audio/video Vital Signs Date Time Temp Pulse Resp B/P (MAP) Pulse Ox O2 Delivery O2 Flow Rate FiO2 01/28/21 08:00 Room Air 01/28/21 07:44 36.2 01/28/21 07:00 92 01/28/21 06:00 98 17 132/87 99 Room Air 01/28/21 05:00 109 31 97 Room Air 01/28/21 04:00 37.1 01/28/21 04:00 Room Air 01/28/21 04:00 96 17 97 Room Air 01/28/21 03:00 98 21 119/73 97 Room Air 01/28/21 02:00 92 16 127/83 99 Room Air 01/28/21 02:00 36.4 01/28/21 01:00 93 21 121/81 98 Room Air 01/28/21 00:37 92 01/28/21 00:07 37.4 Room Air 01/28/21 00:00 98 19 123/86 97 Room Air 01/27/21 23:59 Room Air 01/27/21 23:11 98 Room Air 01/27/21 23:00 107 127/84 99 Room Air 01/27/21 22:00 117 15 93/82 99 Room Air 01/27/21 21:00 120 20 127/86 99 Room Air 01/27/21 20:00 Room Air 01/27/21 20:00 121 27 121/70 98 Room Air 01/27/21 19:45 37.6 01/27/21 19:00 120 01/27/21 19:00 125 18 124/69 99 Room Air 01/27/21 18:37 37.3 114 18 136/101 99 Room Air 01/27/21 17:28 37.4 117 20 143/101 98 Room Air 01/27/21 16:42 36.6 112 97 21 01/27/21 16:15 Room Air 01/27/21 16:08 36.6 112 18 137/77 97 Room Air 01/27/21 15:55 91 16 126/97 97 Room Air 01/27/21 11:55 36.3 137 16 157/93 (114) 99 Room Air I & O 01/28/21 07:00 Intake Total 3410 ml Output Total 1150 ml Balance 2260 ml Height & Weight Height: 5'2.00" Weight: 204lbs. 1.0oz. 92.990603ul; 29.69 BMI Method:Stated General Appearance: No Apparent Distress, Other (Pt is lying in bed on side in dark room, sleepy. She is not in distress but appears a bit uncomfortable. ) HEENT: PERRL/EOMI, Normal ENT Inspection, Pharynx Normal, Moist Mucous Membranes Neck: Full Range of Motion, Normal Inspection, Non Tender Respiratory: Chest Non Tender, Lungs Clear, Normal Breath Sounds, No Accessory Muscle Use, No Respiratory Distress Cardiovascular: Regular Rate, Rhythm, No Edema, No Gallop, No JVD, No Murmur, Normal Peripheral Pulses Capillary Refill: Less Than 3 Seconds Extremity: Normal Capillary Refill, Normal Inspection, Normal Range of Motion, Non Tender, No Calf Tenderness, No Pedal Edema Neurologic/Psychiatric: Alert, Oriented x3, No Motor/Sensory Deficits, Normal Mood/Affect Skin: Normal Color, Warm/Dry Lymphatic: No Adenopathy Results Lab Laboratory Tests 01/27/21 12:00 01/27/21 18:16 01/27/21 22:21 01/28/21 00:39 01/28/21 03:58 01/28/21 08:15 Assessment/Plan Assessment/Plan (Tele-ICU Physician , consultation) (Tele-ICU Physician , Progress Note ) Available chart/ vitals / labs / Images reviewed Video assessment done using teleICU camera, rest of exam as per RN Discussed with RN , EXAM PER RN Events overnight : Afebrile FiO2 - ra I/O = + Drips: inmsulin Pressors: , hemodynamically stable Hospital course: 01/27 - DKA and influenza A A/P DKA *Insulin drip continue to monitor for resolution of acidosis, AG and electrolytes. Continue hydration. - plan to stop gtt latter today Influenza A - tamilu Lines : perip (Central Line Necessity Reviewed) Hurst: void OG: Nutrition: po Analgesia: Anxiety/ delirium VTE Prophylaxis: jose 40 Stress Ulcer Prophylaxis: ppi Plans in collaboration with bedside consultants and IM MDs. Discussed with RN to reach out if any questions or concerns A total of 25 minutes of critical care time was devoted to this patient today, required to treat and/or prevent further deterioration of critical care condition ( as above ) . LEONOR BUTTERFIELD MD Jan 28, 2021 10:42
[2021-01-28] MEDS ORDERED: INSU100I10 SQ (10:50)
[2021-01-28] MEDS ORDERED: INSU100I55 SC (10:50)
[2021-01-28] MEDS ORDERED: LAMO25TA8 PO (10:50)
[2021-01-28] MEDS ORDERED: VALA500T7 PO (10:50)
[2021-01-28] MEDS ORDERED: ALPR1TAB7 PO (10:50)
[2021-01-28 12:39] LABS: POTASSIUM 4.2 MMOL/L (3.6-5.0)
[2021-01-28 12:40] LABS: CALCIUM 8.6 MG/DL (8.5-10.1)
[2021-01-28 12:45] LABS: CREATININE SERUM 0.72 MG/DL (0.60-1.30)
--- NOTE | 2021-01-28 12:58 | Progress Note - Hospitalist ---
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 She was placed in ICU on DKA protocol and will be monitored closely and will follow along with aggressive IV fluids and Tamiflu initiation. Subjective/Events-last exam Pt is awake and sitting up in bed this morning. She states that she is feeling a lot better and is not having any nausea or vomiting. She does not have any pain. Eating and drinking without difficulty. No bowel or bladder concerns and she states diarrhea is improved. She is able to walk around by herself. She has no other concerns this morning. She is coughing a bit with the flu, states she is not coughing anything up. Review of Systems General: No Chills, No Night Sweats HEENT: No Head Aches, No Visual Changes, No Dysphasia Pulmonary: No Dyspnea; Cough; No Pleuritic Chest Pain Cardiovascular: No: Chest Pain, Palpitations, Edema Gastrointestinal: No: Nausea, Vomiting, Abdominal Pain, Diarrhea, Constipation Genitourinary: No Frequency, No Incontinence, No Hematuria Musculoskeletal: No: leg pain, foot pain Neurological: No: Weakness, Numbness Objective Exam Vital Signs Vital Signs Date Time Temp Pulse Resp B/P (MAP) Pulse Ox O2 Delivery O2 Flow Rate FiO2 01/28/21 12:06 36.6 01/28/21 12:00 Room Air 01/28/21 12:00 97 20 100 01/27/21 16:42 21 Capillary Refill : Less Than 3 Seconds General Appearance: No Apparent Distress, WD/WN HEENT: PERRL/EOMI, Moist Mucous Membranes Neck: Supple Respiratory: Chest Non Tender, Lungs Clear, Normal Breath Sounds, No Accessory Muscle Use, No Respiratory Distress Cardiovascular: Regular Rate, Rhythm, No Edema, No Murmur, Normal Peripheral Pulses Gastrointestinal: Normal Bowel Sounds, No Organomegaly, No Pulsatile Mass, Non Tender, Soft Rectal: Deferred Extremity: Normal Capillary Refill, Normal Inspection, Non Tender, No Calf Tenderness, No Pedal Edema Neurologic/Psychiatric: Alert, Oriented x3, Normal Mood/Affect Skin: Normal Color, Warm/Dry Results/Procedures Lab Laboratory Tests 01/27/21 18:16 01/27/21 22:21 01/28/21 00:39 01/28/21 03:58 01/28/21 08:15 01/28/21 12:20 Patient resulted labs reviewed. Assessment/Plan Assessment and Plan Assess & Plan/Chief Complaint DKA T1DM -Improved today, pt feels better -Fluids -Insulin -Monitor K, will likely change with DKA correction -Anion Gap of 10, Bicarb 12, K 3.6 Influenza A -Tamiflu -Monitor for signs of superinfection Hyponatremia -133, will check tomorrow -Pt drinking lots of water Hyperkalemia -3.6, Continue to monitor -Daily labs Marijuana Use -Encourage cessation Nausea/Vomiting/Diarrhea -No other episodes since yesterday, diarrhea improved -Pt has gotten zofran and feels better -Continue to monitor but should improve with DKA resolution Supervisory-Addendum Brief Verification & Attestation Participated in pt care: history, physical Personally performed: exam Care discussed with: Medical Student Procedures: n/a n/a CRYSTAL AGUILERA DO 01/29/21 0519: Subjective Subjective/Events-last exam Pt doing a little better Bicarb still low at 16 Tamiflu maintained Checked meds and labs Denies any pain Review of Systems General: Fatigue, Malaise Objective Exam General Appearance: No Apparent Distress, WD/WN, Chronically ill Respiratory: Lungs Clear, Normal Breath Sounds Cardiovascular: Regular Rate, Rhythm Neurologic/Psychiatric: Alert, Oriented x3, No Motor/Sensory Deficits, Normal Mood/Affect Assessment/Plan Assessment and Plan Assess & Plan/Chief Complaint Continue insulin drip Supervisory-Addendum Brief Verification & Attestation Participated in pt care: history, MDM, physical Personally performed: exam, history, MDM, supervision of care Care discussed with: Medical Student Procedures: n/a Results interpretation: Verified all documentation Verification and Attestation of Medical Student E/M Service A medical student performed and documented this service in my presence. I reviewed and verified all information documented by the medical student and made modifications to such information, when appropriate. I personally performed the physical exam and medical decision making. Crystal Aguilera, Jan 29, 2021,05:19 [employer] STUDENT Jan 28, 2021 12:58 CRYSTAL AGUILERA DO Jan 29, 2021 05:19
[2021-01-28] MEDS: ENOXAPARIN 40 MG/0.4 ML (LOVENOX) SYR SC SCH (16:38)
[2021-01-28 17:48] LABS: POTASSIUM 4.3 MMOL/L (3.6-5.0)
[2021-01-28 17:49] LABS: CALCIUM 8.5 MG/DL (8.5-10.1)
[2021-01-28 17:54] LABS: CREATININE SERUM 0.7 MG/DL (0.60-1.30)
[2021-01-28] MEDS: guaiFENesin/DM (ROBITUSSIN DM) 10 ML UDC PO PRN (21:16)
[2021-01-28 22:42] LABS: POTASSIUM 3.7 MMOL/L (3.6-5.0)
[2021-01-28 22:43] LABS: CALCIUM 8.1 MG/DL (8.5-10.1)
[2021-01-28 22:47] LABS: CREATININE SERUM 0.73 MG/DL (0.60-1.30)
[2021-01-29] MEDS: POTASSIUM CL 10MEQ/50ML IVPB 50 ML IV SCH ×5 (00:27→08:18)
[2021-01-29] MEDS: 1/2 NS IV SOLUTION 1,000 ML IV SCH ×3 (00:27→08:13)
[2021-01-29] MEDS: D5 1/2 NS 1000 ML IV SOLUTION 1,000 ML IV SCH ×2 (02:09→06:05)
[2021-01-29 05:24] LABS: POTASSIUM 3.7 MMOL/L (3.6-5.0)
[2021-01-29 05:26] LABS: CALCIUM 8.2 MG/DL (8.5-10.1)
[2021-01-29 05:30] LABS: CREATININE SERUM 0.61 MG/DL (0.60-1.30)
[2021-01-29] MEDS ORDERED: guaiFENesin SYRUP 100 MG/5 ML 10 ML (ROBITUSSIN SF) ONE (05:41)
[2021-01-29] MEDS: SENNA W/DOCUSATE (SENOKOT S) TABLET PO SCH ×2 (08:13→21:20)
[2021-01-29] MEDS: polyethylene glycoL POWDER 17 GM (MIRALAX) PACK PO SCH ×2 (08:13→21:20)
[2021-01-29] MEDS: FAMOTIDINE 20MG/2ML IV (PEPCID) IVP SCH ×2 (08:18→21:11)
[2021-01-29] MEDS: OSELTAMIVIR 75 MG (TAMIFLU) CAPSULE PO SCH ×2 (08:18→21:11)
[2021-01-29] MEDS: guaiFENesin/DM (ROBITUSSIN DM) 10 ML UDC PO PRN (08:34)
[2021-01-29] MEDS ORDERED: IBUPROFEN TABLET 200 MG TAB PO PRN (10:45)
--- NOTE | 2021-01-29 11:47 | Tele-ICU Progress Note ---
Subjective Date Seen by a Provider: Jan 29, 2021 Time Seen by a Provider: 11:47 Sepsis Event Evaluation Height, Weight, BMI Height: 5'2.00" Weight: 204lbs. 1.0oz. 92.063839fv; 29.69 BMI Method:Stated Exam Exam Patient acknowledged, consented, and participated in this virtual visit which was conducted using real time audio/video Vital Signs Date Time Temp Pulse Resp B/P (MAP) Pulse Ox O2 Delivery O2 Flow Rate FiO2 01/29/21 11:00 102 26 129/84 99 Room Air 01/29/21 10:00 101 36 100 Room Air 01/29/21 09:00 90 20 137/91 99 Room Air 01/29/21 08:27 36.4 01/29/21 08:00 Room Air 01/29/21 08:00 89 14 137/99 99 Room Air 01/29/21 07:00 91 18 130/82 98 Room Air 01/29/21 07:00 92 01/29/21 06:00 89 25 140/90 98 Room Air 01/29/21 05:08 36.6 Room Air 01/29/21 05:00 92 34 141/94 100 Room Air 01/29/21 04:06 Room Air 01/29/21 04:00 92 17 98 01/29/21 03:00 93 22 100 Room Air 01/29/21 03:00 96 97 01/29/21 02:14 36.6 96 15 141/96 97 Room Air 01/29/21 02:00 99 22 97 Room Air 01/29/21 01:00 97 22 98 Room Air 01/29/21 01:00 122 01/29/21 00:00 101 18 126/79 99 Room Air 01/28/21 23:19 Room Air 01/28/21 23:00 105 22 126/79 100 Room Air 01/28/21 22:29 36.5 Room Air 01/28/21 22:00 102 24 147/104 99 Room Air 01/28/21 21:00 109 25 155/91 100 Room Air 01/28/21 20:00 115 30 173/143 100 Room Air 01/28/21 20:00 36.7 Room Air 01/28/21 20:00 Room Air 01/28/21 19:00 115 01/28/21 19:00 116 21 164/116 100 Room Air 01/28/21 18:00 106 22 100 Room Air 01/28/21 17:00 110 23 94 Room Air 01/28/21 16:00 Room Air 01/28/21 16:00 98 18 99 Room Air 01/28/21 15:00 117 11 100 Room Air 01/28/21 14:00 115 25 146/115 95 Room Air 01/28/21 13:00 105 22 141/91 100 Room Air 01/28/21 13:00 104 01/28/21 12:06 36.6 01/28/21 12:00 Room Air 01/28/21 12:00 97 20 100 Room Air I & O 01/29/21 06:59 Intake Total 7890 ml Output Total 5800 ml Balance 2090 ml Height & Weight Height: 5'2.00" Weight: 204lbs. 1.0oz. 92.275700jl; 29.69 BMI Method:Stated General Appearance: No Apparent Distress, WD/WN, Chronically ill HEENT: PERRL/EOMI, Moist Mucous Membranes Neck: Supple Respiratory: Lungs Clear, Normal Breath Sounds Cardiovascular: Regular Rate, Rhythm Capillary Refill: Less Than 3 Seconds Extremity: Normal Capillary Refill, Normal Inspection, Non Tender, No Calf Tenderness, No Pedal Edema Neurologic/Psychiatric: Alert, Oriented x3, No Motor/Sensory Deficits, Normal Mood/Affect Skin: Normal Color, Warm/Dry Lymphatic: No Adenopathy Results Lab Laboratory Tests 01/27/21 12:00 01/27/21 18:16 01/27/21 22:21 01/28/21 00:39 01/28/21 03:58 01/28/21 08:15 01/28/21 12:20 01/28/21 17:30 01/28/21 22:25 01/29/21 04:40 Assessment/Plan Assessment/Plan (Tele-ICU Physician , Progress Note ) Available chart/ vitals / labs / Images reviewed Video assessment done using teleICU camera, rest of exam as per RN Discussed with RN , EXAM PER RN Events overnight : Afebrile FiO2 - ra I/O = + Drips: off Pressors: , hemodynamically stable Hospital course: 01/27 - DKA and influenza A A/P DKA *Insulin drip OFF Influenza A - tamilu Lines : perip (Central Line Necessity Reviewed) Hurst: void OG: Nutrition: po Analgesia: Anxiety/ delirium VTE Prophylaxis: jose 40 Stress Ulcer Prophylaxis: ppi Plans in collaboration with bedside consultants and IM MDs. Discussed with RN to reach out if any questions or concerns A total of 15 minutes of critical care time was devoted to this patient today, required to treat and/or prevent further deterioration of critical care condition ( as above ) . LEONOR BUTTERFIELD MD Jan 29, 2021 11:47
--- NOTE | 2021-01-29 12:32 | Progress Note - Hospitalist ---
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 She was placed in ICU on DKA protocol and will be monitored closely and will follow along with aggressive IV fluids and Tamiflu initiation. Subjective/Events-last exam Pt is awake and sitting up in bed this morning. She states she is not having any nausea or vomiting this morning and that she generally feels better. She does marcos ve a bit of a decreased appetite but no other difficulties eating. She is feeling a little anxious this morning. She will move down to 4th floor today. She is able to walk without difficulty. She does not have any other concerns this morning. Review of Systems General: No Chills, No Night Sweats HEENT: No Head Aches, No Visual Changes, No Dysphasia Pulmonary: No Dyspnea, No Cough Cardiovascular: No: Chest Pain, Palpitations, Edema Gastrointestinal: No: Nausea, Vomiting, Abdominal Pain, Diarrhea, Constipation Genitourinary: No Dysuria, No Frequency, No Hematuria Musculoskeletal: No: leg pain, foot pain Neurological: Other (feeling some anxiety) Objective Exam Vital Signs Vital Signs Date Time Temp Pulse Resp B/P (MAP) Pulse Ox O2 Delivery O2 Flow Rate FiO2 01/29/21 12:22 36.5 01/29/21 12:00 Room Air 01/29/21 11:00 102 26 129/84 99 01/27/21 16:42 21 Capillary Refill : Less Than 3 Seconds General Appearance: No Apparent Distress, WD/WN HEENT: PERRL/EOMI, Moist Mucous Membranes Neck: Supple Respiratory: Chest Non Tender, Lungs Clear, Normal Breath Sounds, No Accessory Muscle Use, No Respiratory Distress Cardiovascular: Regular Rate, Rhythm, No Edema, No Murmur, Normal Peripheral Pulses Gastrointestinal: Normal Bowel Sounds, No Organomegaly, No Pulsatile Mass, Non Tender, Soft Rectal: Deferred Extremity: Normal Capillary Refill, Normal Inspection, Non Tender, No Calf Tenderness, No Pedal Edema Neurologic/Psychiatric: Alert, Oriented x3, Normal Mood/Affect Skin: Normal Color, Warm/Dry Results/Procedures Lab Laboratory Tests 01/28/21 17:30 01/28/21 22:25 01/29/21 04:40 Patient resulted labs reviewed. Assessment/Plan Assessment and Plan Assess & Plan/Chief Complaint DKA T1DM -Improved today, pt feels better -Fluids -Insulin drip can be stopped -Monitor K, will likely change with DKA correction -Anion Gap of 10, Bicarb 18, K 3.7 Influenza A -Tamiflu -Monitor for signs of superinfection Hyponatremia -137, will check tomorrow -Pt drinking lots of water -Stable now Hyperkalemia -3.7, Continue to monitor -Daily labs -Stable now Marijuana Use -Encourage cessation Nausea/Vomiting/Diarrhea -No other episodes since yesterday, diarrhea improved -Pt has gotten zofran and feels better -Continue to monitor but should improve with DKA resolution Pt will transfer down to 4th floor. Supervisory-Addendum Brief Verification & Attestation Participated in pt care: history, physical Personally performed: exam Care discussed with: Medical Student Procedures: n/a n/a CRYSTAL AGUILERA DO 01/30/21 0617: Subjective Subjective/Events-last exam Pt doing a lot better Bicarb 18 Gave Levemir 8 units x1 and restarted her home insulin dose and transferring to the floor DC insulin drip Diabetic education indicated Review of Systems General: Fatigue, Malaise Objective Exam General Appearance: No Apparent Distress, WD/WN, Chronically ill Respiratory: Lungs Clear, Normal Breath Sounds Cardiovascular: Regular Rate, Rhythm Neurologic/Psychiatric: Alert, Oriented x3 Assessment/Plan Assessment and Plan Assess & Plan/Chief Complaint Transfer to floor Supervisory-Addendum Brief Verification & Attestation Participated in pt care: history, MDM, physical Personally performed: exam, history, MDM, supervision of care Care discussed with: Medical Student Procedures: n/a Results interpretation: Verified all documentation Verification and Attestation of Medical Student E/M Service A medical student performed and documented this service in my presence. I reviewed and verified all information documented by the medical student and made modifications to such information, when appropriate. I personally performed the physical exam and medical decision making. Crystal Aguilera, Jan 30, 2021,06:17 [employer] MED STUDENT Jan 29, 2021 12:32 CRYSTAL AGUILERA DO Jan 30, 2021 06:17
[2021-01-29] MEDS: D5 1/2 NS W/KCL 10 MEQ/L 1,000 ML IV SCH (13:46)
[2021-01-29] MEDS: inSUlin ASPART (NovoLOG) 1 UNIT/0.01 ML (CHARGE PER UNIT) SC SCH ×6 (13:47→21:12)
[2021-01-29 17:17] LABS: POTASSIUM 4.1 MMOL/L (3.6-5.0)
[2021-01-29 17:18] LABS: CALCIUM 8.8 MG/DL (8.5-10.1)
[2021-01-29 17:22] LABS: CREATININE SERUM 0.78 MG/DL (0.60-1.30)
[2021-01-29] MEDS: ENOXAPARIN 40 MG/0.4 ML (LOVENOX) SYR SC SCH (17:45)
--- NOTE | 2021-01-29 18:18 | Physician Query Clarification ---
Physician Query-General Query to Physician: The medical record reflects the following clinical evidence: Clinical Indicators: Admission Cr 1.26 eGFR 64 after fluids Cr. 0.61 and eGFR 149, Urine output increased had 4800 out on 01/28/2021 Risk Factor(s): DM with DKA, Nausea, Treatment: 2L IV fluids in ER, Zofran IV, Lab monitoring 1. Acute kidney failure, unspecified, present on admission. 2. Other explanation of clinical findings 3. Unable to determine (no explanation for clinical findings) Please clarify and document your clinical opinion in the progress notes and discharge summary including the definitive and/or presumptive diagnosis, (suspected or probable), related to the above clinical findings. Please include clinical findings supporting your diagnosis. Jasmin Kline MSN, RN Clinical Physical Security Manager [phone] [email or web address] PHYSICIAN RESPONSE: Based on the clinical findings in the record, please respond to the query above on this document as an addendum. Physician Response: Physician Response 1 If you have questions please contact: Industrial Engineering: Ext: Thank you for your time and cooperation. Clinical Physical Security Manager/Industrial Engineering This is a permanent part of the medical record JASMIN KLINE Jan 29, 2021 18:18 FE AGUILERA DO Jan 29, 2021 20:44
[2021-01-29] MEDS: ALPRAZolam 1 MG (XANAX) TAB PO PRN (21:24)
[2021-01-30] MEDS: inSUlin ASPART (NovoLOG) 1 UNIT/0.01 ML (CHARGE PER UNIT) SC SCH ×8 (06:40→20:48)
[2021-01-30] MEDS: D5 1/2 NS W/KCL 10 MEQ/L 1,000 ML IV SCH (06:40)
[2021-01-30 07:21] LABS: BASOPHILS % (AUTO) 0 % (0-10); EOSINOPHILS # (AUTO) 0.1 10^3/uL (0.0-0.3); EOSINOPHILS % (AUTO) 1 % (0-10); HEMATOCRIT 36 % (35-52); HEMOGLOBIN 11.6 g/dL (11.5-16.0); LYMPHOCYTES # (AUTO) 3.3 10^3/uL (1.0-4.0); LYMPHOCYTES % (AUTO) 64 % (12-44); MEAN CORPUSCULAR HEMOGLOBIN 28 pg (25-34); MEAN CORPUSCULAR HGB CONC 32 g/dL (32-36); MEAN CORPUSCULAR VOLUME 86 fL (80-99); MEAN PLATELET VOLUME 9.9 fL (9.0-12.2); MONOCYTES # (AUTO) 0.5 10^3/uL (0.0-1.0); MONOCYTES % (AUTO) 9 % (0-12); NEUTROPHILS # (AUTO) 1.3 10^3/uL (1.8-7.8); NEUTROPHILS % (AUTO) 25 % (42-75); PLATELET COUNT 314 10^3/uL (130-400); WHITE BLOOD COUNT 5.2 10^3/uL (4.3-11.0)
[2021-01-30 07:43] LABS: BILIRUBIN,TOTAL 0.3 MG/DL (0.1-1.0); CALCIUM 8.6 MG/DL (8.5-10.1); CREATININE SERUM 0.71 MG/DL (0.60-1.30); POTASSIUM 5.1 MMOL/L (3.6-5.0); TOTAL PROTEIN 6.3 GM/DL (6.4-8.2)
[2021-01-30] MEDS: polyethylene glycoL POWDER 17 GM (MIRALAX) PACK PO SCH ×2 (08:33→21:09)
[2021-01-30] MEDS: SENNA W/DOCUSATE (SENOKOT S) TABLET PO SCH ×2 (08:33→21:09)
[2021-01-30] MEDS: OSELTAMIVIR 75 MG (TAMIFLU) CAPSULE PO SCH ×2 (09:21→21:12)
[2021-01-30] MEDS: VALACYCLOVIR 500 MG TAB (VALTREX) PO SCH (09:21)
[2021-01-30] MEDS: FAMOTIDINE 20MG/2ML IV (PEPCID) IVP SCH ×2 (09:21→21:12)
[2021-01-30] MEDS: lamoTRIgine 25 MG (LaMICtal) TAB PO SCH (09:21)
[2021-01-30] MEDS: NS IV 1000 ML 1,000 ML IV SCH ×2 (09:21→15:28)
[2021-01-30 12:43] LABS: POTASSIUM 3.8 MMOL/L (3.6-5.0)
[2021-01-30 12:44] LABS: CALCIUM 8.4 MG/DL (8.5-10.1)
[2021-01-30 12:48] LABS: CREATININE SERUM 0.67 MG/DL (0.60-1.30)
--- NOTE | 2021-01-30 12:48 | Progress Note - Hospitalist ---
Subjective HPI/CC On Admission Date Seen by Provider: Jan 30, 2021 Time Seen by Provider: 12:00 CC: DKA with Influenza A HPI: This is a 23yoWF clinic Pt of NABILA Gordon who has a PMH of Type I DM, since 18 months old, who presented with weakness and lethargy, found to have Influenza A and findings consistent with DKA. She was placed in ICU on DKA protocol and will be monitored closely and will follow along with aggressive IV fluids and Tamiflu initiation. Subjective/Events-last exam Patient was hoping to go home today however her blood sugars up in the 400s and her bicarb is dropping with her sodium dropping and her potassium going up at this time. Her IV fluids were changed this morning by myself and we are awaiting a new Chem-7. This juncture I have encouraged her to stay for another day. Objective Exam Vital Signs Vital Signs Date Time Temp Pulse Resp B/P (MAP) Pulse Ox O2 Delivery O2 Flow Rate FiO2 01/30/21 11:56 36.6 94 20 123/83 99 Room Air 01/27/21 16:42 21 Capillary Refill : Less Than 3 Seconds General Appearance: No Apparent Distress HEENT: Normal ENT Inspection Neck: Full Range of Motion, Normal Inspection, Non Tender, Supple Respiratory: Lungs Clear, Normal Breath Sounds, No Accessory Muscle Use, No Respiratory Distress Cardiovascular: Regular Rate, Rhythm, No Edema, No Gallop, No Murmur Gastrointestinal: Normal Bowel Sounds, No Organomegaly, Non Tender, Soft Extremity: No Calf Tenderness, No Pedal Edema Neurologic/Psychiatric: Alert, Oriented x3, No Motor/Sensory Deficits, Normal Mood/Affect Skin: Normal Color, Warm/Dry Results/Procedures Lab Laboratory Tests 01/29/21 17:00 01/30/21 06:40 01/30/21 12:07 Patient resulted labs reviewed. Assessment/Plan Assessment and Plan Assess & Plan/Chief Complaint DKA slow to resolve changing IV fluids back to normal saline and may need to increase her insulin. Type 1 diabetes labile Influenza A improving symptomatically CATRACHITO MURDOCK MD Jan 30, 2021 12:48
[2021-01-30] MEDS ORDERED: D5 NS 1000 ML IV SOLUTION 1,000 ML IV ONE ×2 (15:06→15:15)
[2021-01-30] MEDS: ENOXAPARIN 40 MG/0.4 ML (LOVENOX) SYR SC SCH (15:27)
[2021-01-30] MEDS: ALPRAZolam 1 MG (XANAX) TAB PO PRN (21:20)
[2021-01-31 06:19] LABS: BASOPHILS % (AUTO) 0 % (0-10); EOSINOPHILS # (AUTO) 0.1 10^3/uL (0.0-0.3); EOSINOPHILS % (AUTO) 2 % (0-10); HEMATOCRIT 33 % (35-52); HEMOGLOBIN 10.7 g/dL (11.5-16.0); LYMPHOCYTES # (AUTO) 3.4 10^3/uL (1.0-4.0); LYMPHOCYTES % (AUTO) 62 % (12-44); MEAN CORPUSCULAR HEMOGLOBIN 28 pg (25-34); MEAN CORPUSCULAR HGB CONC 32 g/dL (32-36); MEAN CORPUSCULAR VOLUME 86 fL (80-99); MEAN PLATELET VOLUME 9.7 fL (9.0-12.2); MONOCYTES # (AUTO) 0.4 10^3/uL (0.0-1.0); MONOCYTES % (AUTO) 8 % (0-12); NEUTROPHILS # (AUTO) 1.5 10^3/uL (1.8-7.8); NEUTROPHILS % (AUTO) 28 % (42-75); PLATELET COUNT 342 10^3/uL (130-400); WHITE BLOOD COUNT 5.4 10^3/uL (4.3-11.0)
[2021-01-31 06:35] LABS: CALCIUM 8.6 MG/DL (8.5-10.1)
[2021-01-31 06:39] LABS: CREATININE SERUM 0.64 MG/DL (0.60-1.30)
[2021-01-31] MEDS: inSUlin ASPART (NovoLOG) 1 UNIT/0.01 ML (CHARGE PER UNIT) SC SCH ×2 (08:04→08:05)
[2021-01-31] MEDS: VALACYCLOVIR 500 MG TAB (VALTREX) PO SCH (08:59)
[2021-01-31] MEDS: lamoTRIgine 25 MG (LaMICtal) TAB PO SCH (08:59)
[2021-01-31] MEDS: SENNA W/DOCUSATE (SENOKOT S) TABLET PO SCH (09:00)
[2021-01-31] MEDS: polyethylene glycoL POWDER 17 GM (MIRALAX) PACK PO SCH (09:00)
[2021-01-31] MEDS: FAMOTIDINE 20MG/2ML IV (PEPCID) IVP SCH (09:00)
[2021-01-31] MEDS: OSELTAMIVIR 75 MG (TAMIFLU) CAPSULE PO SCH (09:01)
--- NOTE | 2021-01-31 10:21 | Discharge Summary ---
Diagnosis/Chief Complaint Date of Admission Jan 27, 2021 at 14:27 Date of Discharge February 01, 2021 Discharge Date: Jan 31, 2021 Discharge Time: 11:00 Admission Diagnosis Assessment: DKA Influenza A Plan: Supportive care Insulin drip Tamiflu Primary Care Diogenes Peres DO Discharge Diagnosis Diabetic ketoacidosis influenza A (1) DKA (diabetic ketoacidosis) Status: Acute (2) Influenza A Status: Acute Discharge Summary Discharge Physical Exam Allergies: Coded Allergies: fish derived (Verified Allergy, Intermediate, swelling/hives, 09/15/18) Vitals & I&Os Vital Signs Date Time Temp Pulse Resp B/P (MAP) Pulse Ox O2 Delivery O2 Flow Rate FiO2 01/31/21 03:38 36.4 75 18 155/92 99 Room Air 01/27/21 16:42 21 General Appearance: No Apparent Distress, WD/WN HEENT: Normal ENT Inspection Respiratory: Lungs Clear, Normal Breath Sounds, No Accessory Muscle Use, No Respiratory Distress Cardiovascular: Regular Rate, Rhythm, No Gallop, No Murmur, Normal Peripheral Pulses Gastrointestinal: Normal Bowel Sounds, Non Tender, Soft Extremity: No Calf Tenderness, No Pedal Edema Skin: Normal Color, Warm/Dry Neurologic/Psychiatric: Alert, Oriented x3, No Motor/Sensory Deficits, Normal Mood/Affect Hospital Course Was the Problem List Reviewed?: Yes Patient was admitted in diabetic ketoacidosis with influenza A. She was placed in respiratory isolation. Aggressive IV fluids and IV insulin was utilized to correct the diabetic ketoacidosis. The patient was somewhat slow to resolve but at the time of discharge bicarb was normal and the patient is anxious to go home. Medications are reviewed and she understands the necessity of tight control as possible. Follow-up will be with her regular doctor Labs (last 24 hrs) Laboratory Tests 01/30/21 10:45: Glucometer 420*H 01/30/21 12:07: Sodium Level 138, Potassium Level 3.8, Chloride Level 106, Carbon Dioxide Level 21, Anion Gap 11, Blood Urea Nitrogen 9, Creatinine 0.67, Estimat Glomerular Filtration Rate 133, BUN/Creatinine Ratio 13, Glucose Level 208H, Calcium Level 8.4L, Beta-Hydroxybutyrate (Chem panel) 0.80H 01/30/21 13:29: Glucometer 67L 01/30/21 14:16: Glucometer 72 01/30/21 15:51: Glucometer 217H 01/30/21 20:15: Glucometer 207H 01/30/21 23:52: Glucometer 171H 01/31/21 05:49: White Blood Count 5.4, Red Blood Count 3.87, Hemoglobin 10.7L, Hematocrit 33L, Mean Corpuscular Volume 86, Mean Corpuscular Hemoglobin 28, Mean Corpuscular Hemoglobin Concent 32, Red Cell Distribution Width 12.6, Platelet Count 342, Mean Platelet Volume 9.7, Immature Granulocyte % (Auto) 0, Neutrophils (%) (Auto) 28L, Lymphocytes (%) (Auto) 62H, Monocytes (%) (Auto) 8, Eosinophils (%) (Auto) 2, Basophils (%) (Auto) 0, Neutrophils # (Auto) 1.5L, Lymphocytes # (Auto) 3.4, Monocytes # (Auto) 0.4, Eosinophils # (Auto) 0.1, Basophils # (Auto) 0.0, Immature Granulocyte # (Auto) 0.0, Sodium Level 135, Potassium Level 4.0, Chloride Level 105, Carbon Dioxide Level 21, Anion Gap 9, Blood Urea Nitrogen 12, Creatinine 0.64, Estimat Glomerular Filtration Rate 141, BUN/Creatinine Ratio 19, Glucose Level 261H, Calcium Level 8.6, Beta-Hydroxybutyrate (Chem panel) 0.45H 01/31/21 06:13: Glucometer 251H Patient resulted labs reviewed. Pending Labs Laboratory Tests 01/31/21 05:49: White Blood Count 5.4, Red Blood Count 3.87, Hemoglobin 10.7, Hematocrit 33, Mean Corpuscular Volume 86, Mean Corpuscular Hemoglobin 28, Mean Corpuscular Hemoglobin Concent 32, Red Cell Distribution Width 12.6, Platelet Count 342, Mean Platelet Volume 9.7, Immature Granulocyte % (Auto) 0, Neutrophils (%) (Auto) 28, Lymphocytes (%) (Auto) 62, Monocytes (%) (Auto) 8, Eosinophils (%) (Auto) 2, Basophils (%) (Auto) 0, Neutrophils # (Auto) 1.5, Lymphocytes # (Auto) 3.4, Monocytes # (Auto) 0.4, Eosinophils # (Auto) 0.1, Basophils # (Auto) 0.0, Immature Granulocyte # (Auto) 0.0, Sodium Level 135, Potassium Level 4.0, Chloride Level 105, Carbon Dioxide Level 21, Anion Gap 9, Blood Urea Nitrogen 12, Creatinine 0.64, Estimat Glomerular Filtration Rate 141, BUN/Creatinine Ratio 19, Glucose Level 261, Calcium Level 8.6, Beta-Hydroxybutyrate (Chem panel) 0.45 01/31/21 06:13: Glucometer 251 Discussion & Recommendations Discharge Planning: <30 minutes discharge planning Discharge Home Medications: Active Scripts Active Reported Valacyclovir (Valacyclovir HCl) 500 Mg Tablet 500 Mg PO DAILY Alprazolam 1 Mg Tablet 1 Mg PO DAILY PRN Lamotrigine 25 Mg Tablet 25 Mg PO DAILY Insulin Aspart Flexpen (Insulin Aspart) 100 Unit/1 Ml Insuln.pen 10 Units SC ACHS Lantus Solostar (Insulin Glargine,Hum.rec.anlog) 100 Unit/1 Ml Insuln.pen 15 Unit SQ DAILY Ibuprofen 200 Mg Tablet 400 Mg PO Q6H PRN Condition at discharge Stable Instructions to patient/family Please see electronic discharge instructions given to patient. Copy Copies To 1: DIOGENES PERES KATHLEEN M MD Jan 31, 2021 10:21
[2021-01-31 11:30] VITALS: BP 145/92
== END 2021-01-31 11:33 | disposition home or self-care (01) | DRG 193 ==
LOC: EDUNIT# 11:19 → ER 11:21 → ICU 14:27 → 4TH 01-29 14:26
PROVIDERS: ADMIT Internal Medicine; ATTEND Internal Medicine
DX: J10.1 Influenza due to other identified influenza virus with other respiratory manifestations (principal); E10.10 Type 1 diabetes mellitus with ketoacidosis without coma; N17.9 Acute kidney failure, unspecified; E87.1 Hypo-osmolality and hyponatremia; F32.A Depression, unspecified; F41.9 Anxiety disorder, unspecified; Z79.4 Long term (current) use of insulin; E21.3 Hyperparathyroidism, unspecified; E87.5 Hyperkalemia; F12.90 Cannabis use, unspecified, uncomplicated; R11.2 Nausea with vomiting, unspecified; R19.7 Diarrhea, unspecified; Z20.822 Contact with and (suspected) exposure to COVID-19
CPT/HCPCS: 36415; 80048; 80053; 81000; 82010; 82805; 82947; 83036; 84703; 85025; 85027; 87636; 99291

== ENCOUNTER 2021-11-02 10:13 | Observation (INO) | payer BC ==
[~2021-11-02] VITALS: Ht 157 cm; Wt 81.4 kg
[~2021-11-02 10:13] MED LIST changes: +ALPR1TAB7 PO; +INSU100I55 SC; +LAMO25TA8 PO; +VALA500T7 PO
[2021-11-02 10:45] LABS: BASOPHILS # (AUTO) 0.1 10^3/uL (0.0-0.1); BASOPHILS % (AUTO) 1 % (0-10); EOSINOPHILS % (AUTO) 0 % (0-10); HEMATOCRIT 44 % (35-52); HEMOGLOBIN 14.1 g/dL (11.5-16.0); LYMPHOCYTES # (AUTO) 2.8 10^3/uL (1.0-4.0); LYMPHOCYTES % (AUTO) 23 % (12-44); MEAN CORPUSCULAR HEMOGLOBIN 28 pg (25-34); MEAN CORPUSCULAR HGB CONC 32 g/dL (32-36); MEAN CORPUSCULAR VOLUME 88 fL (80-99); MEAN PLATELET VOLUME 9.9 fL (9.0-12.2); MONOCYTES # (AUTO) 1.4 10^3/uL (0.0-1.0); MONOCYTES % (AUTO) 12 % (0-12); NEUTROPHILS # (AUTO) 7.8 10^3/uL (1.8-7.8); NEUTROPHILS % (AUTO) 64 % (42-75); PLATELET COUNT 402 10^3/uL (130-400); WHITE BLOOD COUNT 12.1 10^3/uL (4.3-11.0)
[2021-11-02] MEDS ORDERED: inSUlin (REGULAR) HUMAN 1 UNIT/0.01 ML (CHARGE PER UNIT) IV ONE (10:45)
[2021-11-02] MEDS ORDERED: NS IV 1000 ML 1,000 ML IV SCH ×2 (10:45→13:45)
[2021-11-02] MEDS ORDERED: ACETAMINOPHEN 500 MG TAB (TYLENOL) PO ONE (10:45)
[2021-11-02] MEDS ORDERED: ONDANSETRON 4 MG/2 ML (SDV) Z0FRAN IVP ONE (10:45)
[2021-11-02 11:11] LABS: CLARITY,URINE CLEAR; COLOR,URINE YELLOW; GLUCOSE, URINE (UA) 2+ (NEGATIVE); KETONES,URINE 3+ (NEGATIVE); LEUKOCYTE ESTERASE ,URINE NEGATIVE (NEGATIVE); NITRITE,URINE NEGATIVE (NEGATIVE); PH,URINE 5.5 (5-9); PROTEIN,URINE NEGATIVE (NEGATIVE)
[2021-11-02 11:31] LABS: BACTERIA,URINE NEGATIVE /HPF; BILIRUBIN,URINE 1+ (NEGATIVE); RBC,URINE RARE /HPF; SQUAMOUS EPITHELIAL CELL,UR 0-2 /HPF; WBC,URINE RARE /HPF; YEAST,URINE FEW /HPF
--- NOTE | 2021-11-02 11:31 | Diagnostic Imaging Report ---
EXAMINATION: Chest 1 view HISTORY: Cough. Fever. COMPARISON: 09/08/2017. FINDINGS: The lung volumes are normal. No focal consolidation is seen. No large pleural effusion or pneumothorax is seen. The cardiomediastinal silhouette is normal in size and contour. No acute osseous abnormality is seen. IMPRESSION: 1. No acute pleuroparenchymal process. Dictated by: Dictated on workstation # [id number]
[2021-11-02 11:47] LABS: ALBUMIN 3.7 GM/DL (3.2-4.5); INR 1.2 (0.8-1.4); POTASSIUM 3.4 MMOL/L (3.6-5.0); PROTHROMBIN TIME PATIENT 15.3 SEC (12.2-14.7)
[2021-11-02 11:49] LABS: CALCIUM 9.3 MG/DL (8.5-10.1)
[2021-11-02 11:50] LABS: TOTAL PROTEIN 7.9 GM/DL (6.4-8.2)
[2021-11-02 11:52] LABS: BILIRUBIN,TOTAL 0.2 MG/DL (0.1-1.0)
[2021-11-02 11:54] LABS: CREATININE SERUM 0.93 MG/DL (0.60-1.30)
[2021-11-02 12:11] LABS: FREE T4 (FREE THYROXINE) 1.29 NG/DL (0.70-1.48)
[2021-11-02] MEDS ORDERED: LACTATED RINGERS 1,000 ML IV ONE (12:45)
--- NOTE | 2021-11-02 13:05 | ED General ---
General Chief Complaint: Cough/Cold/Flu Symptoms Stated Complaint: HIGH BLOOD SUGAR/COUGH Nursing Triage Note: PT AMB TO RM 10, PT CO OF COUGH AND NOT FEELING WELL. STATES BS 508 AND HAS TAKEN 16U INSULIN 1 HR AGO. PT TEMP 100.8. PT HAS HX HIV AND GRAVES DISEASE Source of Information: Patient Exam Limitations: No Limitations History of Present Illness Date Seen by Provider: Nov 02, 2021 Time Seen by Provider: 10:22 Initial Comments This 21-year-old woman presents to the emergency room with complaints of vomiting, fever, cough, and elevated blood sugars. She has been a type I diabetic since infancy. She normally takes NovoLog 16 units with meals and Levemir 25 units in the morning. She did not take her Levemir this morning but did take NovoLog 16 units. Cough started several days ago. She has some chest soreness from coughing. Cough is not particularly productive. She began symptoms of vomiting and fever yesterday. She has not been able to eat or drink well since then. Blood sugars have been high at home, up to 508 this morning. She states recent compliance with her insulin. She is febrile at present with a temperature of 100.8 and a heart rate in the 140s, sinus rhythm. Her primary care provider is Manuel JOYCE in [place]. 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 Patient has comorbidities including Graves' disease (not currently treated), type 1 diabetes, and HSV. Patient does not have HIV as stated in the nursing notes. That was a miscommunication. She admits to frequent marijuana use with last use 2 days ago. Allergies and Home Medications Allergies Coded Allergies: fish derived (Verified Allergy, Intermediate, swelling/hives, 09/15/18) Patient Home Medication List Home Medication List Reviewed: Yes Diphenhydramine HCl (Benadryl Allergy) 25 Mg Tablet, 25-50 MG PO Q8H PRN for ALLERGY SYMPTOMS, (Reported) Entered as Reported by: DEMOND TAVAREZ on 11/02/21 1525 Last Action: Reviewed Ibuprofen (Ibuprofen) 200 Mg Tablet, 400 MG PO Q6H PRN for PAIN-MILD, (Reported) Entered as Reported by: DEMOND TAVAREZ on 09/17/18 0850 Last Action: Reviewed Insulin Aspart (Insulin Aspart Flexpen) 100 Unit/Ml (3 Ml) Insuln.pen, 16 UNITS SC AC, (Reported) Entered as Reported by: DEMOND TAVAREZ on 01/28/21 1050 Last Action: Reviewed Insulin Glargine,Hum.rec.anlog (Lantus Solostar) 100 Unit/Ml (3 Ml) Insuln.pen, 25 UNIT SQ DAILY, (Reported) Entered as Reported by: DEMOND TAVAREZ on 01/28/21 1050 Last Action: Reviewed Methylphenidate HCl (Methylphenidate HCl ER) 20 Mg Cpbp.30.70, 20 MG PO MO,TU,WE,TH,FR, (Reported) Entered as Reported by: DEMOND TAVAREZ on 11/02/21 1525 Last Action: Reviewed Valacyclovir HCl (Valacyclovir) 500 Mg Tablet, 500 MG PO DAILY, (Reported) Entered as Reported by: DEMOND TAVAREZ on 01/28/21 105 Last Action: Reviewed Discontinued Medications Alprazolam (Alprazolam) 1 Mg Tablet, 1 MG PO DAILY PRN for ANXIETY, (Reported) Discontinued Reason: No Longer Taking Entered as Reported by: DEMOND TAVAREZ on 01/28/21 105 Last Action: Discontinued Review of Systems Review of Systems Constitutional: see HPI EENTM: no symptoms reported Respiratory: see HPI Cardiovascular: see HPI Gastrointestinal: see HPI Genitourinary: no symptoms reported : No Musculoskeletal: no symptoms reported Skin: no symptoms reported Psychiatric/Neurological: No Symptoms Reported Hematologic/Lymphatic: No Symptoms Reported Immunological/Allergic: no symptoms reported Past Osnkryo-Gbjiez-Mdwzot Hx Patient Social History Tobacco Use?: No Use of E-Cig and/or Vaping dev: No Substance use?: Yes Substance type: Marijuana Alcohol Use?: Yes Alcohol Frequency: Once in a while Immunizations Up To Date PED Vaccines UTD: Yes First/Initial COVID19 Vaccinat: 05/03 Seasonal Allergies Seasonal Allergies: Yes Past Medical History Surgeries: Yes (RIGHT KNEE) Orthopedic Respiratory: No Cardiac: No Neurological: No : No Female Reproductive Disorders: Denies Sexually Transmitted Disease: Yes (Genital HSV) Genitourinary: No Gastrointestinal: No Musculoskeletal: No Endocrine: Yes Diabetes, Insulin dep (Type 1 diabetes since infancy) HEENT: No Cancer: No Psychosocial: Yes Anxiety, Depression Integumentary: No Blood Disorders: No Family Medical History Heart Disease, Diabetes, Hypertension Mother has hypothyroidism Father has hyperthyroidism sister has hypothyroidism,depression, anxiety half brother peanut and shellfish allergries Physical Exam Vital Signs Vital Signs - First Documented 11/02/21 10:15 Temp 38.2 Pulse 144 Resp 26 B/P (MAP) 147/99 (115) Pulse Ox 97 Capillary Refill : Less Than 3 Seconds Height, Weight, BMI Height: 5'2.00" Weight: 204lbs. 1.0oz. 92.779217mu; 29.00 BMI Method:Stated General Appearance: No Apparent Distress, WD/WN HEENT: PERRL/EOMI, TMs Normal, Normal ENT Inspection, Other (Patient cannot relax her tongue for pharyngeal exam. Mucous membranes moist) Neck: Normal Inspection Respiratory: Lungs Clear, Normal Breath Sounds, No Accessory Muscle Use Cardiovascular: No Edema, No Murmur, Tachycardia (Regular) Gastrointestinal: Non Tender, Soft Extremity: Normal Inspection, No Pedal Edema Neurologic/Psychiatric: Alert, Oriented x3, No Motor/Sensory Deficits, Normal Mood/Affect, dry kiln feeder II-XII Norm as Tested Skin: Normal Color, Warm/Dry Focused Exam Lactate Level 11/02/21 11:13: Lactic Acid Level 1.91 Lactic Acid Level Laboratory Tests Test 11/02/21 11:13 Lactic Acid Level 1.91 MMOL/L (0.50-2.00) Progress/Results/Core Measures Suspected Sepsis SIRS Temperature: Pulse: 144 Respiratory Rate: 26 Laboratory Tests 11/02/21 10:28: White Blood Count 12.1H Blood Pressure 147 /99 Mean: 115 11/02/21 11:13: Lactic Acid Level 1.91 Laboratory Tests 11/02/21 10:28: Platelet Count 402H 11/02/21 11:13: Creatinine 0.93, INR Comment 1.2, Total Bilirubin 0.2 Results/Orders Lab Results Laboratory Tests Test 11/02/21 10:24 11/02/21 10:28 11/02/21 10:30 11/02/21 11:05 Range/Units Influenza Type A (RT-PCR) Not Detected Not Detecte Influenza Type B (RT-PCR) Not Detected Not Detecte SARS-CoV-2 RNA (RT-PCR) Not Detected Not Detecte White Blood Count 12.1 H 4.3-11.0 10^3/uL Red Blood Count 5.01 3.80-5.11 10^6/uL Hemoglobin 14.1 11.5-16.0 g/dL Hematocrit 44 35-52 % Mean Corpuscular Volume 88 80-99 fL Mean Corpuscular Hemoglobin 28 25-34 pg Mean Corpuscular Hemoglobin Concent 32 32-36 g/dL Red Cell Distribution Width 12.9 10.0-14.5 % Platelet Count 402 H 130-400 10^3/uL Mean Platelet Volume 9.9 9.0-12.2 fL Immature Granulocyte % (Auto) 1 % Neutrophils (%) (Auto) 64 42-75 % Lymphocytes (%) (Auto) 23 12-44 % Monocytes (%) (Auto) 12 0-12 % Eosinophils (%) (Auto) 0 0-10 % Basophils (%) (Auto) 1 0-10 % Neutrophils # (Auto) 7.8 1.8-7.8 10^3/uL Lymphocytes # (Auto) 2.8 1.0-4.0 10^3/uL Monocytes # (Auto) 1.4 H 0.0-1.0 10^3/uL Eosinophils # (Auto) 0.0 0.0-0.3 10^3/uL Basophils # (Auto) 0.1 0.0-0.1 10^3/uL Immature Granulocyte # (Auto) 0.1 0.0-0.1 10^3/uL Glucometer 370 H 70-110 MG/DL Urine Color YELLOW Urine Clarity CLEAR Urine pH 5.5 5-9 Urine Specific [place] >=1.030 1.016-1.022 Urine Protein NEGATIVE NEGATIVE Urine Glucose (UA) 2+ H NEGATIVE Urine Ketones 3+ H NEGATIVE Urine Nitrite NEGATIVE NEGATIVE Urine Bilirubin 1+ H NEGATIVE Urine Urobilinogen 0.2 < = 1.0 MG/DL Urine Leukocyte Esterase NEGATIVE NEGATIVE Urine RBC (Auto) NEGATIVE NEGATIVE Urine RBC RARE /HPF Urine WBC RARE /HPF Urine Squamous Epithelial Cells 0-2 /HPF Urine Crystals NONE /LPF Urine Bacteria NEGATIVE /HPF Urine Casts NONE /LPF Urine Mucus NEGATIVE /LPF Urine Yeast FEW H /HPF Urine Culture Indicated YES Test 11/02/21 11:13 11/02/21 12:00 Range/Units Prothrombin Time 15.3 H 12.2-14.7 SEC INR Comment 1.2 0.8-1.4 Activated Partial Thromboplast Time 31 24-35 SEC Sodium Level 138 135-145 MMOL/L Potassium Level 3.4 L 3.6-5.0 MMOL/L Chloride Level 103 98-107 MMOL/L Carbon Dioxide Level 11 L 21-32 MMOL/L Anion Gap 24 H 5-14 MMOL/L Blood Urea Nitrogen 10 7-18 MG/DL Creatinine 0.93 0.60-1.30 MG/DL Estimat Glomerular Filtration Rate 89 BUN/Creatinine Ratio 11 Glucose Level 275 H 70-105 MG/DL Lactic Acid Level 1.91 0.50-2.00 MMOL/L Calcium Level 9.3 8.5-10.1 MG/DL Corrected Calcium 9.5 8.5-10.1 MG/DL Total Bilirubin 0.2 0.1-1.0 MG/DL Aspartate Amino Transf (AST/SGOT) 21 5-34 U/L Alanine Aminotransferase (ALT/SGPT) 22 0-55 U/L Alkaline Phosphatase 123 40-136 U/L C-Reactive Protein High Sensitivity 10.83 H 0.00-0.50 MG/DL Total Protein 7.9 6.4-8.2 GM/DL Albumin 3.7 3.2-4.5 GM/DL Procalcitonin 0.38 H <0.10 NG/ML Thyroid Stimulating Hormone (TSH) 0.00 L 0.35-4.94 UIU/ML Free Thyroxine 1.29 0.70-1.48 NG/DL Serum Test, Qualitative NEGATIVE NEGATIVE Glucometer 149 H 70-110 MG/DL My Orders Orders - ELIEZER STRATTON MD Covid 19 Inhouse Test (11/02/21 10:21) Influenza A And B By Pcr (11/02/21 10:21) Ondansetron Injection (Zofran Injectio (11/02/21 10:45) Acetaminophen Tablet (Tylenol Tablet) (11/02/21 10:45) Ed Iv/Invasive Line Start (11/02/21 10:35) Ns Iv 1000 Ml (Sodium Chloride 0.9%) (11/02/21 10:45) Cbc With Automated Diff (11/02/21 10:36) Comprehensive Metabolic Panel (11/02/21 10:36) Blood Culture (11/02/21 10:36) Sputum Culture (11/02/21 10:36) Urinalysis (11/02/21 10:36) Protime With Inr (11/02/21 10:36) Partial Thromboplastin Time (11/02/21 10:36) Chest 1 View, Ap/Pa Only (11/02/21 10:36) Vital Signs Adult Sepsis Patie Q15M (11/02/21 10:36) Remove Rings In Anticipation O (11/02/21 10:36) Lactic Acid Analyzer (11/02/21 10:36) Hs C Reactive Protein (11/02/21 10:36) Hcg,Qualitative Serum (11/02/21 10:36) Procalcitonin (Pct) (11/02/21 10:36) Insulin (Regular) Human (Novolin R (Per (11/02/21 10:45) Thyroid Stimulating Hormone (11/02/21 10:39) Free T4 (Free Thyroxine) (11/02/21 10:39) Blood Culture (11/02/21 10:51) Urine Culture (11/02/21 11:05) Lactated Ringers (Lr 1000 Ml Iv Solution (11/02/21 12:45) Accucheck Stat ONCE (11/02/21 12:43) Accucheck Stat ONCE (11/02/21 12:43) Ed Admission (Communication) (11/02/21 13:17) D5 1/2 Ns 1000 Ml Iv Solution (Dextrose (11/02/21 13:30) Medications Given in ED Current Medications Medications Dose Ordered Sig/Fatuma Route Start Time Stop Time Status Last Admin Dose Admin Acetaminophen 1,000 mg ONCE ONCE PO 11/02/21 10:45 11/02/21 10:46 DC 11/02/21 10:48 1,000 MG Insulin Human Regular 3 unit ONCE ONCE IV 11/02/21 10:45 11/02/21 10:46 DC 11/02/21 10:47 3 UNIT Lactated Ringer's 1,000 ml @ 0 mls/hr Q0M ONCE IV 11/02/21 12:45 11/02/21 12:46 DC 11/02/21 12:59 1,000 MLS/HR Ondansetron HCl 8 mg ONCE ONCE IVP 11/02/21 10:45 11/02/21 10:46 DC 11/02/21 10:48 8 MG Vital Signs/I&O 11/02/21 10:15 Temp 38.2 Pulse 144 Resp 26 B/P (MAP) 147/99 (115) Pulse Ox 97 Capillary Refill : Less Than 3 Seconds Blood Pressure Mean: 115 Progress Note : Time: 13:15 Progress Note Patient was hydrated with a liter of normal saline followed by a liter of LR. Blood sugar did drop significantly into the 140s. D5 half-normal saline is being started in the emergency room. No source of infection was identified. Case was discussed with Dr. Marquez who will place admission orders. Diagnostic Imaging Diagonstic Imaging: Xray Plain Films/CT/US/NM/MRI: chest Comments NAME: DEWEY HERNANDEZ [facility] REC#: [id number] PT STATUS: REG ER : 2000 PHYSICIAN: ELIEZER STRATTON MD ADMIT DATE: 11/02/21/ER Signed Date of Exam:11/02/21 CHEST 1 VIEW, AP/PA ONLY EXAMINATION: Chest 1 view HISTORY: Cough. Fever. COMPARISON: 09/08/2017. FINDINGS: The lung volumes are normal. No focal consolidation is seen. No large pleural effusion or pneumothorax is seen. The cardiomediastinal silhouette is normal in size and contour. No acute osseous abnormality is seen. IMPRESSION: 1. No acute pleuroparenchymal process. Dictated by: Dictated on workstation # [id number] Dict: 11/02/21 1129 Trans: 11/02/21 1132 [facility] [id number] Interpreted by: GENO MICHAEL DO Electronically signed by: GENO MICHAEL DO 11/02/21 1132 Departure Communication (Admissions) Time/Spoke to Admitting Phy: 13:00 Dr. Marquez Impression Primary Impression: DKA, type 1 Qualified Codes: E10.10 - Type 1 diabetes mellitus with ketoacidosis without coma Additional Impressions: Nausea & vomiting Qualified Codes: R11.2 - Nausea with vomiting, unspecified Febrile illness Disposition: ADMITTED INPATIENT Condition: Stable Admissions Decision to Admit Reason: Admit from ER (General) Decision to Admit/Date: Nov 02, 2021 Time/Decision to Admit Time: 13:00 Departure-Patient Inst. Referrals: PENELOPE JOYCE DO (PCP/Family) Primary Care Physician ELIEZER STRATTON MD Nov 02, 2021 13:05
[2021-11-02] MEDS ORDERED: D5 1/2 NS 1000 ML IV SOLUTION 1,000 ML IV ONE (13:30)
--- NOTE | 2021-11-02 13:34 | History & Physical-Hospitalist ---
History of Present Illness HPI/Chief Complaint Patient is a 21-year-old female with a past medical history of type 1 diabetes, Graves' disease, HSV who presented to the emergency department due to elevated blood sugars. She states that her symptoms started yesterday when she developed a GI bug. She has nausea she vomited and had diarrhea yesterday. This morning she woke up and checked her blood sugar and it was over 500. She had missed some doses of her insulin because of her nausea and vomiting. She has had DKA in the past and was concerned she was going back into it so presented to the emergency department. She states her nausea and vomiting have improved today. Her labs revealed her to be in mild DKA and she was admitted to the ICU for an insulin drip. Source: patient Date Seen 11/02/21 Time Seen by a Provider: 13:34 Attending Physician Diogenes Peres DO PCP Admitting Physician: Kaleigh Marquez MD Attending Physician: Kaleigh Marquez MD Referring Physician Date of Admission Nov 02, 2021 at 13:18 Home Medications & Allergies Home Medications Reviewed patient Home Medication Reconciliation performed by pharmacy medication reconciliations regulatory technician and/or nursing. Patients Allergies have been reviewed. Allergies Allergies Coded Allergies fish derived (Verified Allergy, Intermediate, swelling/hives, 09/15/18) Past [id number] Hx Patient Social History Employed/Student: student, full-time Tobacco Use?: No Use of E-Cig and/or Vaping dev: No Substance use?: Yes Substance type: Marijuana Alcohol Use?: Yes Alcohol Frequency: Once in a while Immunizations Up To Date First/Initial COVID19 Vaccinat: 05/03 Tetanus Booster (TDap): Unknown Hepatitis A: No Hepatitis B: No PED Vaccines UTD: Yes Seasonal Allergies Seasonal Allergies: Yes Current Status Communicates: Verbally Primary Language: Belarusian Preferred Spoken Language: Belarusian Is interpretation needed?: No Past Medical History Surgeries: Orthopedic Sexually Transmitted Disease: Yes (Genital HSV) Diabetes, Insulin dep (Type 1 diabetes since infancy) Anxiety, Depression Blood Disorders: No graves disease-untreated Family Medical History Heart Disease, Diabetes, Hypertension Mother has hypothyroidism Father has hyperthyroidism sister has hypothyroidism,depression, anxiety half brother peanut and shellfish allergries Review of Systems Constitutional: No chills; fever EENTM: no symptoms reported Respiratory: no symptoms reported Cardiovascular: no symptoms reported Gastrointestinal: see HPI Musculoskeletal: no symptoms reported Skin: no symptoms reported Psychiatric/Neurological: No Symptoms Reported Physical Exam Physical Exam Vital Signs Vital Signs - First Documented 11/02/21 11/02/21 10:15 14:00 Temp 38.2 Pulse 144 Resp 26 B/P (MAP) 147/99 (115) Pulse Ox 97 O2 Delivery Room Air Capillary Refill : Less Than 3 Seconds Height, Weight, BMI Height: 5'2.00" Weight: 204lbs. 1.0oz. 92.684525vd; 29.00 BMI Method:Stated General Appearance: No Apparent Distress, WD/WN HEENT: PERRL/EOMI, Moist Mucous Membranes; No Scleral Icterus (L), No Scleral Icterus (R) Neck: Normal Inspection, Supple Respiratory: Lungs Clear, No Accessory Muscle Use, No Respiratory Distress Cardiovascular: Regular Rate, Rhythm, No JVD, No Murmur, Normal Peripheral Pulses Gastrointestinal: Normal Bowel Sounds, Non Tender, Soft Extremity: Normal Capillary Refill, No Calf Tenderness, No Pedal Edema Neurologic/Psychiatric: Alert, Oriented x3, Normal Mood/Affect Skin: Normal Color, Warm/Dry Results Results/Procedures Labs Laboratory Tests 11/02/21 10:28 11/02/21 11:13 11/02/21 13:55 Patient resulted labs reviewed. Imaging: Reviewed Imaging Report Imaging [facility], [place] NAME: DEWEY HERNANDEZ [facility] REC#: [id number] PT STATUS: REG ER : 2000 PHYSICIAN: ELIEZER STRATTON MD ADMIT DATE: 11/02/21/ER Signed Date of Exam:11/02/21 CHEST 1 VIEW, AP/PA ONLY EXAMINATION: Chest 1 view HISTORY: Cough. Fever. COMPARISON: 09/08/2017. FINDINGS: The lung volumes are normal. No focal consolidation is seen. No large pleural effusion or pneumothorax is seen. The cardiomediastinal silhouette is normal in size and contour. No acute osseous abnormality is seen. IMPRESSION: 1. No acute pleuroparenchymal process. Dictated by: Dictated on workstation # [id number] Dict: 11/02/21 1129 Trans: 11/02/21 1132 [id number] [id number] Interpreted by: GENO MICHAEL DO Electronically signed by: GENO MICHAEL DO 11/02/21 1132 Assessment/Plan Admission Diagnosis DKA Admission Status: Observation Assessment and Plan DKA BS 370 on arrival with bicarb of 11 and gap of 24 Urine ketones + Given 3 units of insulin in ER and BS dropped to 149 Admit to ICU on DKA protocol Leukocytosis Likely reactive but does have fever as well Not sepsis Rocephin empirically but will DC quickly if no source presents itself Graves disease States she followed with endocrinology previously and on no treatment TSH 0 with normal T4 Needs outpatient follow up DVT ppx: Lovenox Diagnosis/Problems Diagnosis/Problems (1) DKA (diabetic ketoacidosis) Status: Acute Qualifiers: Diabetes mellitus type: type 1 Diabetes mellitus complication detail: without coma Qualified Codes: E10.10 - Type 1 diabetes mellitus with ketoacidosis without coma (2) Febrile illness Status: Acute (3) DKA, type 1 Status: Acute Qualifiers: Diabetes mellitus complication detail: without coma Qualified Codes: E10.10 - Type 1 diabetes mellitus with ketoacidosis without coma (4) Nausea & vomiting Status: Acute Qualifiers: Vomiting type: unspecified Qualified Codes: R11.2 - Nausea with vomiting, unspecified KALEIGH MARQUEZ MD Nov 02, 2021 13:34
[2021-11-02 13:40] VITALS: BP 118/76
[2021-11-02] MEDS ORDERED: MILK OF MAGNESIA 400 MG/5 ML 30 ML UDC PO PRN (13:45)
[2021-11-02] MEDS ORDERED: BENZONATATE 100 MG (TESSALON) CAPSULE PO PRN (13:45)
[2021-11-02] MEDS ORDERED: MELATONIN 3 MG TABLET PO PRN (13:45)
[2021-11-02] MEDS ORDERED: ONDANSETRON 4 MG/2 ML (SDV) Z0FRAN IV PRN (13:45)
[2021-11-02] MEDS ORDERED: POTASSIUM CL 10MEQ/50ML IVPB 50 ML IV SCH (13:45)
[2021-11-02] MEDS ORDERED: ANTACID SUSP 30 ML UDC (MYLANTA) PO PRN (13:45)
[2021-11-02 14:12] LABS: HEMATOCRIT 40 % (35-52); MEAN CORPUSCULAR HEMOGLOBIN 28 pg (25-34); MEAN CORPUSCULAR HGB CONC 32 g/dL (32-36); MEAN CORPUSCULAR VOLUME 87 fL (80-99); MEAN PLATELET VOLUME 9.5 fL (9.0-12.2); PLATELET COUNT 363 10^3/uL (130-400); WHITE BLOOD COUNT 9.1 10^3/uL (4.3-11.0)
[2021-11-02 14:25] LABS: POTASSIUM 4.5 MMOL/L (3.6-5.0)
[2021-11-02 14:27] LABS: CALCIUM 8.9 MG/DL (8.5-10.1)
--- NOTE | 2021-11-02 14:30 | Tele-ICU Progress Note ---
Subjective Date Seen by a Provider: Nov 02, 2021 Time Seen by a Provider: 14:30 Subjective/Events-last exam (Tele-ICU Physician , consultation) Available chart/ vitals / labs / Images reviewed H&P is from ER notes Patient's information available about PMH, allergy reviewed in EMR. ROS as per chart and RN report Video assessment done using teleICU camera, rest of exam as per RN Discussed with RN. She has a history of type 1 diabetes mellitus and she developed for the nausea vomiting diarrhea for about 1 day and her blood sugars are found to be high after missing dose called to walk for her insulin due to nausea vomiting. She is concerned about her DKA as she developed DKA in the past and she came to the emergency room. Lab work revealed that she is in mild DKA and she is being admitted to the intensive care unit for insulin drip. She had a low-grade fever yesterday. Today she denies any abdominal pain or chest pain. Review of Systems ROS PER RN Sepsis Event Evaluation Height, Weight, BMI Height: 5'2.00" Weight: 204lbs. 1.0oz. 92.693780ft; 29.61 BMI Method:Stated Focused Exam Lactate Level 11/02/21 11:13: Lactic Acid Level 1.91 Lactic Acid Level Laboratory Tests Test 11/02/21 11:13 Lactic Acid Level 1.91 MMOL/L (0.50-2.00) Exam Exam Patient acknowledged, consented, and participated in this virtual visit which was conducted using real time audio/video Vital Signs Date Time Temp Pulse Resp B/P (MAP) Pulse Ox O2 Delivery O2 Flow Rate FiO2 11/02/21 14:05 117 11/02/21 13:40 109 18 118/76 98 11/02/21 10:15 38.2 144 26 147/99 (115) 97 Height & Weight Height: 5'2.00" Weight: 204lbs. 1.0oz. 92.741875td; 29.61 BMI Method:Stated General Appearance: No Apparent Distress, WD/WN HEENT: PERRL/EOMI, TMs Normal, Normal ENT Inspection, Other (Patient cannot relax her tongue for pharyngeal exam. Mucous membranes moist) Neck: Normal Inspection Respiratory: Lungs Clear, Normal Breath Sounds, No Accessory Muscle Use Cardiovascular: No Edema, No Murmur, Tachycardia (Regular) Capillary Refill: Less Than 3 Seconds Extremity: Normal Inspection, No Pedal Edema Neurologic/Psychiatric: Alert, Oriented x3, No Motor/Sensory Deficits, Normal Mood/Affect, fashion artist II-XII Norm as Tested Skin: Normal Color, Warm/Dry Other comments PE PER RN Results Lab Laboratory Tests 11/02/21 10:28 11/02/21 11:13 11/02/21 13:55 Assessment/Plan Assessment/Plan 1. Diabetic ketoacidosis secondary to development of gastroenteritis. 2. History of Graves' disease and she follows with endocrinology and currently on no treatment. She will need outpatient follow-up. Recommendations. Insulin drip per protocol DVT prophylaxis. Endocrine follow-up as an outpatient. Critical Care: Critically Ill Patient Time spent with patient (mins): 20 GILBERT SMILEY MD Nov 02, 2021 14:30
[2021-11-02 14:31] LABS: CREATININE SERUM 0.81 MG/DL (0.60-1.30)
[2021-11-02] MEDS: cefTRIAXone 1 GM PRE-MIX 50 ML IV SCH (14:37)
[2021-11-02] MEDS: POTASSIUM CL 10MEQ/50ML IVPB 50 ML IV SCH ×5 (15:07→21:16)
[2021-11-02] MEDS ORDERED: DIPH25TA65 PO (15:25)
[2021-11-02] MEDS ORDERED: METH20CP17 PO (15:25)
[2021-11-02] MEDS: 1/2 NS IV SOLUTION 1,000 ML IV SCH ×3 (15:38→22:44)
[2021-11-02 16:39] LABS: POTASSIUM 3.8 MMOL/L (3.6-5.0)
[2021-11-02 16:40] LABS: CALCIUM 8.8 MG/DL (8.5-10.1)
[2021-11-02 16:44] LABS: CREATININE SERUM 0.8 MG/DL (0.60-1.30)
[2021-11-02] MEDS: D5 1/2 NS 1000 ML IV SOLUTION 1,000 ML IV SCH ×2 (18:55→22:41)
[2021-11-02 22:23] LABS: POTASSIUM 3.8 MMOL/L (3.6-5.0)
[2021-11-02 22:25] LABS: CALCIUM 8.9 MG/DL (8.5-10.1)
[2021-11-02 22:29] LABS: CREATININE SERUM 0.83 MG/DL (0.60-1.30)
[2021-11-03] MEDS: POTASSIUM CL 10MEQ/50ML IVPB 50 ML IV SCH ×2 (01:12→05:21)
[2021-11-03] MEDS: D5 1/2 NS 1000 ML IV SOLUTION 1,000 ML IV SCH ×2 (03:28→07:54)
[2021-11-03] MEDS: 1/2 NS IV SOLUTION 1,000 ML IV SCH ×2 (05:06→07:56)
[2021-11-03 05:17] LABS: BASOPHILS % (AUTO) 0 % (0-10); EOSINOPHILS % (AUTO) 0 % (0-10); HEMATOCRIT 35 % (35-52); HEMOGLOBIN 11.4 g/dL (11.5-16.0); LYMPHOCYTES # (AUTO) 3.1 10^3/uL (1.0-4.0); LYMPHOCYTES % (AUTO) 27 % (12-44); MEAN CORPUSCULAR HEMOGLOBIN 28 pg (25-34); MEAN CORPUSCULAR HGB CONC 32 g/dL (32-36); MEAN CORPUSCULAR VOLUME 88 fL (80-99); MEAN PLATELET VOLUME 9.3 fL (9.0-12.2); MONOCYTES # (AUTO) 1.6 10^3/uL (0.0-1.0); MONOCYTES % (AUTO) 14 % (0-12); NEUTROPHILS # (AUTO) 6.5 10^3/uL (1.8-7.8); NEUTROPHILS % (AUTO) 58 % (42-75); PLATELET COUNT 291 10^3/uL (130-400); WHITE BLOOD COUNT 11.2 10^3/uL (4.3-11.0)
[2021-11-03 05:24] LABS: ALBUMIN 2.9 GM/DL (3.2-4.5); POTASSIUM 3.9 MMOL/L (3.6-5.0)
[2021-11-03 05:25] LABS: CALCIUM 8.4 MG/DL (8.5-10.1)
[2021-11-03 05:27] LABS: TOTAL PROTEIN 5.9 GM/DL (6.4-8.2)
[2021-11-03 05:28] LABS: BILIRUBIN,TOTAL 0.1 MG/DL (0.1-1.0)
[2021-11-03 05:30] LABS: CREATININE SERUM 0.76 MG/DL (0.60-1.30); PHOSPHORUS 2.3 MG/DL (2.3-4.7)
[2021-11-03 05:33] LABS: MAGNESIUM 1.8 MG/DL (1.6-2.4)
--- NOTE | 2021-11-03 08:35 | Discharge Summary ---
Diagnosis/Chief Complaint Date of Admission Nov 02, 2021 at 13:18 Date of Discharge Admission Diagnosis DKA Primary Care Diogenes Peres DO Discharge Diagnosis (1) DKA (diabetic ketoacidosis) Status: Acute (2) Febrile illness Status: Acute (3) DKA, type 1 Status: Acute (4) Nausea & vomiting Status: Acute Discharge Summary Discharge Physical Exam Allergies: Coded Allergies: fish derived (Verified Allergy, Intermediate, swelling/hives, 09/15/18) Vitals & I&Os Vital Signs Date Time Temp Pulse Resp B/P (MAP) Pulse Ox O2 Delivery O2 Flow Rate FiO2 11/03/21 08:00 36.5 11/03/21 05:42 103 32 128/87 (101) 98 Room Air General Appearance: No Apparent Distress Respiratory: Lungs Clear, No Respiratory Distress Cardiovascular: Regular Rate, Rhythm, No Murmur Neurologic/Psychiatric: Alert, Oriented x3 Hospital Course Patient was admitted to the hospital secondary to DKA. This was precipitated by gastroenteritis and those symptoms resolved. She was admitted on an insulin drip and her gap closed quickly with resolution of her acidosis. She was transitioned off of the insulin drip back to bolus insulin and did well. She was discharged home to follow-up with her primary care provider. I did recommend that she reestablish with endocrinology for her diabetes and Graves' disease. Labs (last 24 hrs) Laboratory Tests 11/02/21 10:24: Influenza Type A (RT-PCR) Not Detected, Influenza Type B (RT-PCR) Not Detected, SARS-CoV-2 RNA (RT-PCR) Not Detected 11/02/21 10:28: White Blood Count 12.1H, Red Blood Count 5.01, Hemoglobin 14.1, Hematocrit 44, Mean Corpuscular Volume 88, Mean Corpuscular Hemoglobin 28, Mean Corpuscular Hemoglobin Concent 32, Red Cell Distribution Width 12.9, Platelet Count 402H, Mean Platelet Volume 9.9, Immature Granulocyte % (Auto) 1, Neutrophils (%) (Auto) 64, Lymphocytes (%) (Auto) 23, Monocytes (%) (Auto) 12, Eosinophils (%) (Auto) 0, Basophils (%) (Auto) 1, Neutrophils # (Auto) 7.8, Lymphocytes # (Auto) 2.8, Monocytes # (Auto) 1.4H, Eosinophils # (Auto) 0.0, Basophils # (Auto) 0.1, Immature Granulocyte # (Auto) 0.1 11/02/21 10:30: Glucometer 370H 11/02/21 11:05: Urine Color YELLOW, Urine Clarity CLEAR, Urine pH 5.5, Urine Specific [place] >=1.030, Urine Protein NEGATIVE, Urine Glucose (UA) 2+H, Urine Ketones 3+H, Urine Nitrite NEGATIVE, Urine Bilirubin 1+H, Urine Urobilinogen 0.2, Urine Leukocyte Esterase NEGATIVE, Urine RBC (Auto) NEGATIVE, Urine RBC RARE, Urine WBC RARE, Urine Squamous Epithelial Cells 0-2, Urine Crystals NONE, Urine Bacteria NEGATIVE, Urine Casts NONE, Urine Mucus NEGATIVE, Urine Yeast FEWH, Urine Culture Indicated YES 11/02/21 11:13: Prothrombin Time 15.3H, INR Comment 1.2, Activated Partial Thromboplast Time 31, Sodium Level 138, Potassium Level 3.4L, Chloride Level 103, Carbon Dioxide Level 11L, Anion Gap 24H, Blood Urea Nitrogen 10, Creatinine 0.93, Estimat Glomerular Filtration Rate 89, BUN/Creatinine Ratio 11, Glucose Level 275H, Mean Blood Glucose 266H, Hemoglobin A1c 10.9H, Lactic Acid Level 1.91, Calcium Level 9.3, Corrected Calcium 9.5, Total Bilirubin 0.2, Aspartate Amino Transf (AST/SGOT) 21, Alanine Aminotransferase (ALT/SGPT) 22, Alkaline Phosphatase 123, C-Reactive Protein High Sensitivity 10.83H, Total Protein 7.9, Albumin 3.7, Procalcitonin 0.38H, Thyroid Stimulating Hormone (TSH) 0.00L, Free Thyroxine 1.29, Serum Test, Qualitative NEGATIVE 11/02/21 12:00: Glucometer 149H 11/02/21 13:55: Sodium Level 136, Potassium Level 4.5, Chloride Level 105, Carbon Dioxide Level 13L, Anion Gap 18H, Blood Urea Nitrogen 9, Creatinine 0.81, Estimat Glomerular Filtration Rate 105, BUN/Creatinine Ratio 11, Glucose Level 245H, Calcium Level 8.9, White Blood Count 9.1, Red Blood Count 4.61, Hemoglobin 13.0, Hematocrit 40, Mean Corpuscular Volume 87, Mean Corpuscular Hemoglobin 28, Mean Corpuscular Hemoglobin Concent 32, Red Cell Distribution Width 12.9, Platelet Count 363, Mean Platelet Volume 9.5, Beta-Hydroxybutyrate (Chem panel) 5.00H 11/02/21 14:00: Glucometer 218H 11/02/21 15:23: Glucometer 374H 11/02/21 16:10: Sodium Level 137, Potassium Level 3.8, Chloride Level 107, Carbon Dioxide Level 12L, Anion Gap 18H, Blood Urea Nitrogen 7, Creatinine 0.80, Estimat Glomerular Filtration Rate 106, BUN/Creatinine Ratio 9, Glucose Level 246H, Calcium Level 8.8 11/02/21 16:27: Glucometer 213H 11/02/21 18:00: Glucometer 226H 11/02/21 18:56: Glucometer 261H 11/02/21 20:15: Glucometer 211H 11/02/21 21:13: Glucometer 145H 11/02/21 22:05: Glucometer 117H, Sodium Level 139, Potassium Level 3.8, Chloride Level 106, Carbon Dioxide Level 18L, Anion Gap 15H, Blood Urea Nitrogen 7, Creatinine 0.83, Estimat Glomerular Filtration Rate 102, BUN/Creatinine Ratio 8, Glucose Level 107H, Calcium Level 8.9 11/02/21 23:16: Glucometer 207H 11/03/21 00:45: Glucometer 161H 11/03/21 01:39: Glucometer 137H 11/03/21 02:26: Glucometer 101 11/03/21 03:25: Glucometer 194H 11/03/21 04:23: Glucometer 199H 11/03/21 04:50: White Blood Count 11.2H, Red Blood Count 4.04, Hemoglobin 11.4L, Hematocrit 35, Mean Corpuscular Volume 88, Mean Corpuscular Hemoglobin 28, Mean Corpuscular Hemoglobin Concent 32, Red Cell Distribution Width 12.9, Platelet Count 291, Mean Platelet Volume 9.3, Immature Granulocyte % (Auto) 0, Neutrophils (%) (Auto) 58, Lymphocytes (%) (Auto) 27, Monocytes (%) (Auto) 14H, Eosinophils (%) (Auto) 0, Basophils (%) (Auto) 0, Neutrophils # (Auto) 6.5, Lymphocytes # (Auto) 3.1, Monocytes # (Auto) 1.6H, Eosinophils # (Auto) 0.0, Basophils # (Auto) 0.0, Immature Granulocyte # (Auto) 0.1, Sodium Level 139, Potassium Level 3.9, Chloride Level 108H, Carbon Dioxide Level 16L, Anion Gap 15H, Blood Urea Nitrogen 5L, Creatinine 0.76, Estimat Glomerular Filtration Rate 113, BUN/Creatinine Ratio 7, Glucose Level 185H, Calcium Level 8.4L, Corrected Calcium 9.3, Phosphorus Level 2.3, Magnesium Level 1.8, Total Bilirubin 0.1, A spartate Amino Transf (AST/SGOT) 61H, Alanine Aminotransferase (ALT/SGPT) 30, Alkaline Phosphatase 111, Total Protein 5.9L, Albumin 2.9L 11/03/21 05:17: Glucometer 167H 11/03/21 06:05: Glucometer 156H 11/03/21 06:58: Glucometer 165H 11/03/21 07:45: Glucometer 169H Microbiology 11/02/21 Urine Culture - Preliminary, Resulted Strep, Beta Hemolytic Group B Probable E.coli Patient resulted labs reviewed. Pending Labs Laboratory Tests 11/03/21 00:45: Glucometer 161 11/03/21 01:39: Glucometer 137 11/03/21 02:26: Glucometer 101 11/03/21 03:25: Glucometer 194 11/03/21 04:23: Glucometer 199 11/03/21 04:50: White Blood Count 11.2, Red Blood Count 4.04, Hemoglobin 11.4, Hematocrit 35, Mean Corpuscular Volume 88, Mean Corpuscular Hemoglobin 28, Mean Corpuscular Hemoglobin Concent 32, Red Cell Distribution Width 12.9, Platelet Count 291, Mean Platelet Volume 9.3, Immature Granulocyte % (Auto) 0, Neutrophils (%) (Auto) 58, Lymphocytes (%) (Auto) 27, Monocytes (%) (Auto) 14, Eosinophils (%) (Auto) 0, Basophils (%) (Auto) 0, Neutrophils # (Auto) 6.5, Lymphocytes # (Auto) 3.1, Monocytes # (Auto) 1.6, Eosinophils # (Auto) 0.0, Basophils # (Auto) 0.0, Immature Granulocyte # (Auto) 0.1, Sodium Level 139, Potassium Level 3.9, Chloride Level 108, Carbon Dioxide Level 16, Anion Gap 15, Blood Urea Nitrogen 5, Creatinine 0.76, Estimat Glomerular Filtration Rate 113, BUN/Creatinine Ratio 7, Glucose Level 185, Calcium Level 8.4, Corrected Calcium 9.3, Phosphorus Level 2.3, Magnesium Level 1.8, Total Bilirubin 0.1, Aspartate Amino Transf (AST/SGOT) 61, Alanine Aminotransferase (ALT/SGPT) 30, Alkaline Phosphatase 111, Total Protein 5.9, Albumin 2.9 11/03/21 05:17: Glucometer 167 11/03/21 06:05: Glucometer 156 11/03/21 06:58: Glucometer 165 11/03/21 07:45: Glucometer 169 Imaging: Reviewed Imaging Report Discussion & Recommendations Discharge Planning: >30 minutes discharge planning Discharge Home Medications: Active Scripts Active Reported Benadryl Allergy (Diphenhydramine HCl) 25 Mg Tablet 25-50 Mg PO Q8H PRN Methylphenidate HCl ER (Methylphenidate HCl) 20 Mg Cpbp.30.70 20 Mg PO MO,,,TH,FR HOLDS ON SAT & SUN Valacyclovir (Valacyclovir HCl) 500 Mg Tablet 500 Mg PO DAILY Insulin Aspart Flexpen (Insulin Aspart) 100 Unit/Ml (3 Ml) Insuln.pen 16 Units SC AC Lantus Solostar (Insulin Glargine,Hum.rec.anlog) 100 Unit/Ml (3 Ml) Insuln.pen 25 Unit SQ DAILY LAST FILLED 01-10-2021 #5 PENS/60 DAY SUPPLY Ibuprofen 200 Mg Tablet 400 Mg PO Q6H PRN Instructions to patient/family Please see electronic discharge instructions given to patient. Problem Qualifiers (1) DKA (diabetic ketoacidosis): Diabetes mellitus type: type 1 Diabetes mellitus complication detail: without coma Qualified Codes: E10.10 - Type 1 diabetes mellitus with ketoacidosis without coma (2) DKA, type 1: Diabetes mellitus complication detail: without coma Qualified Codes: E10.10 - Type 1 diabetes mellitus with ketoacidosis without coma (3) Nausea & vomiting: Vomiting type: unspecified Qualified Codes: R11.2 - Nausea with vomiting, unspecified KALEIGH COELHO MD Nov 03, 2021 08:35
--- NOTE | 2021-11-03 08:36 | Discharge Inst-Simple/Standard ---
Discharge Inst-Standard Patient Instructions/Follow Up Plan of Care/Instructions/FU: Please continue to take your medications as written. Please follow up with your primary care doctor to follow up this hospital stay. Activity as Tolerated: Yes Discharge Diet: ADA Diet Return to The Hospital For: Chest pain, shortness of breath, fever, weakness, if you feel you are getting worse. KALEIGH COELHO MD Nov 03, 2021 08:36
--- NOTE | 2021-11-03 09:55 | Tele-ICU Progress Note ---
Subjective Date Seen by a Provider: Nov 03, 2021 Time Seen by a Provider: 09:51 Subjective/Events-last exam (Tele-ICU Physician , progress note) Available chart/ vitals / labs / Images reviewed H&P is from ER notes Patient's information available about PMH, allergy reviewed in EMR. ROS as per chart and RN report Video assessment done using teleICU camera, rest of exam as per RN Discussed with RN. She has a history of type 1 diabetes mellitus and she developed for the nausea vomiting diarrhea for about 1 day and her blood sugars are found to be high after missing dose called to walk for her insulin due to nausea vomiting. She is concerned about her DKA as she developed DKA in the past and she came to the emergency room. Lab work revealed that she is in mild DKA and she is being admitted to the intensive care unit for insulin drip. She had a low-grade fever 2 days ago. No nausea or vomiting today.. Today has no abdominal pain or chest pain. blood sugars are better Review of Systems ROS PER RN Sepsis Event Evaluation Height, Weight, BMI Height: 5'2.00" Weight: 204lbs. 1.0oz. 92.164277wi; 33.02 BMI Method:Stated Focused Exam Lactate Level 11/02/21 11:13: Lactic Acid Level 1.91 Exam Exam Patient acknowledged, consented, and participated in this virtual visit which was conducted using real time audio/video Vital Signs Date Time Temp Pulse Resp B/P (MAP) Pulse Ox O2 Delivery O2 Flow Rate FiO2 11/03/21 08:00 98 Room Air 11/03/21 08:00 135 15 137/90 (106) 95 Room Air 11/03/21 08:00 36.5 11/03/21 07:00 109 11/03/21 07:00 95 21 123/82 (96) 97 Room Air 11/03/21 05:42 103 32 128/87 (101) 98 Room Air 11/03/21 04:00 98 Room Air 11/03/21 04:00 36.7 11/03/21 03:42 116 32 134/70 (91) 96 Room Air 11/03/21 02:42 113 25 139/84 (102) 96 Room Air 11/03/21 01:42 122 16 135/92 (106) 99 Room Air 11/03/21 01:00 113 11/03/21 00:42 145 23 133/69 (90) 98 Room Air 11/02/21 23:44 97 Room Air 11/02/21 23:40 38.8 11/02/21 22:42 142 157/91 (113) 95 Room Air 11/02/21 21:42 138 141/92 (108) 100 Room Air 11/02/21 20:42 123 137/101 (113) 98 Room Air 11/02/21 20:00 98 Room Air 11/02/21 19:42 123 132/90 (104) Room Air 11/02/21 19:00 122 11/02/21 18:00 108 128/82 (97) Room Air 11/02/21 17:00 108 127/87 (100) Room Air 11/02/21 16:30 36.8 11/02/21 16:00 122 142/96 (111) 97 Room Air 11/02/21 16:00 97 Room Air 11/02/21 15:00 120 127/70 (89) 99 Room Air 11/02/21 14:15 97 Room Air 11/02/21 14:05 117 11/02/21 14:00 116 131/83 (99) 98 Room Air 11/02/21 13:40 109 18 118/76 98 11/02/21 10:15 38.2 144 26 147/99 (115) 97 I & O 11/03/21 07:00 Intake Total 4900 ml Output Total 1200 ml Balance 3700 ml Height & Weight Height: 5'2.00" Weight: 204lbs. 1.0oz. 92.675019tn; 33.02 BMI Method:Stated General Appearance: No Apparent Distress HEENT: PERRL/EOMI, TMs Normal, Normal ENT Inspection, Other (Patient cannot relax her tongue for pharyngeal exam. Mucous membranes moist) Neck: Normal Inspection Respiratory: Lungs Clear, No Respiratory Distress Cardiovascular: Regular Rate, Rhythm, No Murmur Capillary Refill: Less Than 3 Seconds Extremity: Normal Inspection, No Pedal Edema Neurologic/Psychiatric: Alert, Oriented x3 Skin: Normal Color, Warm/Dry Results Lab Laboratory Tests 11/02/21 10:28 11/02/21 11:13 11/02/21 13:55 11/02/21 16:10 11/02/21 22:05 11/03/21 04:50 Assessment/Plan Assessment/Plan 1. Diabetic keto acidosis secondary to development of gastroenteritis improved. AG is 15. continue insulin drip until AG closed. 2. History of Graves' disease and she follows with endocrinology and currently on no treatment. She will need outpatient follow-up. Critical Care: Critically Ill Patient Time spent with patient (mins): 15 GILBERT SMILEY MD Nov 03, 2021 09:55
[2021-11-03] MEDS ORDERED: inSUlin ASPART (NovoLOG) 1 UNIT/0.01 ML (CHARGE PER UNIT) SC SCH (11:00)
[2021-11-03 14:30] LABS: POTASSIUM 4.2 MMOL/L (3.6-5.0)
[2021-11-03] MEDS: cefTRIAXone 1 GM PRE-MIX 50 ML IV SCH (14:33)
[2021-11-03 14:35] LABS: CREATININE SERUM 0.79 MG/DL (0.60-1.30)
== END 2021-11-03 14:52 | disposition home or self-care (01) ==
LOC: EDUNIT# 10:13 → ER 10:16 → ICU 13:18 → UNDOADMOB 13:18 → ICU 13:59 → UNDODISOB 11-03 14:52
PROVIDERS: ADMIT Family Medicine; ATTEND Family Medicine
DX: E10.10 Type 1 diabetes mellitus with ketoacidosis without coma (principal); R50.9 Fever, unspecified; Z28.311 Partially vaccinated for COVID-19; D72.829 Elevated white blood cell count, unspecified; E05.01 Thyrotoxicosis with diffuse goiter with thyrotoxic crisis or storm
CPT/HCPCS: 36415; 71045; 80048; 80053; 81000; 82010; 82947; 83036; 83605; 83735; 83880; 84100; 84145; 84439; 84443; 84703; 85025; 85027; 85610; 85730; 86141; 87040; 87088; 87636; 96361; 96366; 96372; 96375; 96376; G0378

== ENCOUNTER 2022-04-12 03:17 | Emergency (ER) | payer BC ==
[~2022-04-12] VITALS: Ht 157.4 cm; Wt 77.1 kg
[~2022-04-12 03:17] MED LIST changes: +DIPH25TA65 PO; +METH20CP17 PO
[2022-04-12] MEDS ORDERED: IBUPROFEN 800 MG (MOTRIN) TAB PO STA (04:09)
--- NOTE | 2022-04-12 04:15 | ED EENT ---
History of Present Illness General Chief Complaint: Oral/Throat Problems Stated Complaint: SORE THROAT X 2 DAYS Nursing Triage Note: pt amb to rm 9 with cc of sore throat x2 days. pt states that she is having difficulty swallowing and eating. Source: patient Exam Limitations: no limitations History of Present Illness Date Seen by Provider: Apr 12, 2022 Time Seen by Provider: 04:03 Initial Comments Here with report of increasing throat pain and feeling swelling over the last 2 days. Patient is diabetic. She denies fever or nasal congestion and cough. States the throat is hurting moderately. She has not had anything for pain tonight. Reports her blood sugars have been in reasonable range for her. States that she is drinking okay but is having difficulty eating due to pain. Timing/Duration: other (2 to 3 days) Severity: moderate Location: throat Associated Symptoms: No cough, No facial pain/swelling, No fever, No nasal congestion/drainage; sore throat Allergies and Home Medications Allergies Coded Allergies: fish derived (Verified Allergy, Intermediate, swelling/hives, 09/15/18) Patient Home Medication List Home Medication List Reviewed: Yes Diphenhydramine HCl (Benadryl Allergy) 25 Mg Tablet, 25-50 MG PO Q8H PRN for ALLERGY SYMPTOMS, (Reported) Entered as Reported by: DEMOND TAVAREZ on 11/02/21 1525 Ibuprofen (Ibuprofen) 200 Mg Tablet, 400 MG PO Q6H PRN for PAIN-MILD, (Reported) Entered as Reported by: DEMOND TAVAREZ on 09/17/18 0850 Insulin Aspart (Insulin Aspart Flexpen) 100 Unit/Ml (3 Ml) Insuln.pen, 16 UNITS SC AC, (Reported) Entered as Reported by: DEMOND TAVAREZ on 01/28/21 1050 Insulin Glargine,Hum.rec.anlog (Lantus Solostar) 100 Unit/Ml (3 Ml) Insuln.pen, 25 UNIT SQ DAILY, (Reported) Entered as Reported by: DEMOND TAVAREZ on 01/28/21 1050 Methylphenidate HCl (Methylphenidate HCl ER) 20 Mg Cpbp.30.70, 20 MG PO MO,TU,WE,TH,FR, (Reported) Entered as Reported by: DEMOND TAVAREZ on 11/02/21 1525 Valacyclovir HCl (Valacyclovir) 500 Mg Tablet, 500 MG PO DAILY, (Reported) Entered as Reported by: DEMOND TAVAREZ on 01/28/21 1050 Review of Systems Review of Systems Constitutional: see HPI Eyes: No Symptoms Reported Ears: No Symptoms Reported Nose: no symptoms reported Throat: see HPI, pain, swelling; denies aphonia; painful swallowing Respiratory: No cough, No short of breath Gastrointestinal: No nausea, No vomiting Past Ooaqimz-Bdnxel-Rsxdeo Hx Patient Social History Tobacco Use?: No Substance use?: Yes Substance type: Marijuana Alcohol Use?: Yes Alcohol Frequency: Once in a while Immunizations Up To Date PED Vaccines UTD: Yes First/Initial COVID19 Vaccinat: 05/03 Second COVID19 Vaccination Caleb: 05/03 Third COVID19 Vaccination Date: 05/03 Seasonal Allergies Seasonal Allergies: Yes Past Medical History Surgery/Hospitalization HX: HSV, GRAVES DISEASE, IDDM Surgeries: Yes (RIGHT KNEE) Orthopedic Respiratory: No Cardiac: No Neurological: No Female Reproductive Disorders: Denies Sexually Transmitted Disease: Yes (Genital HSV) Genitourinary: No Gastrointestinal: No Musculoskeletal: No Endocrine: Yes Diabetes, Insulin dep HEENT: No Cancer: No Psychosocial: Yes Anxiety, Depression Integumentary: No Blood Disorders: No Family Medical History Reviewed Nursing Family Hx Heart Disease, Diabetes, Hypertension Mother has hypothyroidism Father has hyperthyroidism sister has hypothyroidism,depression, anxiety half brother peanut and shellfish allergries Physical Exam Vital Signs Vital Signs - First Documented 04/12/22 03:27 Pulse 113 B/P (MAP) 147/111 (123) Pulse Ox 99 O2 Delivery Room Air Height, Weight, BMI Height: 5'2.00" Weight: 204lbs. 1.0oz. [id number]; 31.00 BMI Method:Stated General Appearance: WD/WN, no apparent distress Ears: bilateral ear auricle normal, bilateral ear canal normal, bilateral ear TM normal Nose: normal inspection Mouth/Throat: pharynx tenderness, tonsillar swelling; No trismus, No uvula swelling Neck: full range of motion, supple, lymphadenopathy (R), lymphadenopathy (L) Cardiovascular: no murmur, tachycardia Respiratory: lungs clear, normal breath sounds Gastrointestinal: non tender, soft Neurologic/Psychiatric: alert, oriented x 3 Progress/Results/Core Measures Results/Orders Lab Results Laboratory Tests Test 04/12/22 03:33 Range/Units Influenza Type A (RT-PCR) Not Detected Not Detecte Influenza Type B (RT-PCR) Not Detected Not Detecte SARS-CoV-2 RNA (RT-PCR) Not Detected Not Detecte Group A Streptococcus Screen NEGATIVE NEGATIVE My Orders Orders - JOCELYNE SEN MD Dexamethasone Injection (Decadron Inje (04/12/22 04:15) Ibuprofen Tablet (Motrin Tablet) (04/12/22 04:09) Rapid Strep A Screen (04/12/22 04:09) Influenza A And B By Pcr (04/12/22 04:09) Covid 19 Inhouse Test (04/12/22 04:09) Medications Given in ED Current Medications Medications Dose Ordered Sig/Fatuma Route Start Time Stop Time Status Last Admin Dose Admin Dexamethasone Sodium Phosphate 10 mg ONCE ONCE IM 04/12/22 04:15 04/12/22 04:16 DC 04/12/22 04:18 10 MG Vital Signs/I&O 04/12/22 03:27 Pulse 113 B/P (MAP) 147/111 (123) Pulse Ox 99 O2 Delivery Room Air Blood Pressure Mean: 123 Progress Progress Note : Progress Note Seen and evaluated. Rapid strep, COVID and influenza screening ordered. Ibupro fen 800 mg p.o. and Decadron 10 mg IM ordered. Monitor patient. Differential diagnosis includes strep pharyngitis, viral pharyngitis. 0520: Doing a little better. Strep, COVID and flu testing are negative. Due to her diabetes and rather pronounced pharyngitis, I will go ahead and initiate amoxicillin outpatient for 7 days. This was discussed with the patient who agrees. OTC meds discussed. Discharged home with return precautions. Patient verbalized understanding of instructions and agreement with plan. Departure Impression Primary Impression: Pharyngitis Qualified Codes: J02.9 - Acute pharyngitis, unspecified Disposition: 01 HOME, SELF-CARE Condition: Stable Departure-Patient Inst. Decision time for Depature: 05:27 Referrals: PENELOPE JOYCE DO (PCP/Family) Primary Care Physician Patient Instructions: Viral Pharyngitis (DC) Add. Discharge Instructions: All discharge instructions reviewed with patient and/or family. Voiced understanding. You may take ibuprofen 600 mg every 8 hours as needed for pain. You may also take Tylenol/acetaminophen 1000 mg every 8 hours as needed for pain. Drink plenty of fluids and get plenty of rest. If you have significant nasal congestion, you may use Afrin nasal spray or the generic, 12-hour relief, 2 sprays to each nostril twice daily for 3 days only and then stop. Do not use more than 3 days. Follow-up with your doctor in a few days for recheck. Return for worse pain, fever, vomiting, weakness, breathing or swallowing problems or other concerns as needed. Scripts Amoxicillin (Amoxicillin) 500 Mg Capsule 500 MG PO TID, #21 CAP 0 Refills Prov: JOCELYNE SEN MD 04/12/22 JOCELYNE SEN MD Apr 12, 2022 04:15
[2022-04-12] MEDS ORDERED: AMOX500C2 PO (05:29)
[2022-04-12 05:34] VITALS: BP 135/99
== END 2022-04-12 05:35 | disposition home or self-care (01) ==
LOC: EDUNIT# 03:17 → ER 03:20
DX: J02.9 Acute pharyngitis, unspecified (principal); Z20.822 Contact with and (suspected) exposure to COVID-19; Z28.311 Partially vaccinated for COVID-19
CPT/HCPCS: 87430; 87636; 99284

== ENCOUNTER 2022-10-22 10:19 | Emergency (ER) | payer BC ==
[~2022-10-22] VITALS: Ht 157.5 cm; Wt 81.6 kg
[~2022-10-22 10:19] MED LIST changes: +AMOX500C2 PO
[2022-10-22 11:33] LABS: BASOPHILS # (AUTO) 0.1 10^3/uL (0.0-0.1); BASOPHILS % (AUTO) 1 % (0-10); EOSINOPHILS % (AUTO) 0 % (0-10); HEMATOCRIT 46 % (35-52); HEMOGLOBIN 15.5 g/dL (11.5-16.0); LYMPHOCYTES # (AUTO) 1.1 10^3/uL (1.0-4.0); LYMPHOCYTES % (AUTO) 11 % (12-44); MEAN CORPUSCULAR HEMOGLOBIN 30 pg (25-34); MEAN CORPUSCULAR HGB CONC 34 g/dL (32-36); MEAN CORPUSCULAR VOLUME 89 fL (80-99); MEAN PLATELET VOLUME 9.9 fL (9.0-12.2); MONOCYTES # (AUTO) 1.2 10^3/uL (0.0-1.0); MONOCYTES % (AUTO) 13 % (0-12); NEUTROPHILS # (AUTO) 7.4 10^3/uL (1.8-7.8); NEUTROPHILS % (AUTO) 76 % (42-75); PLATELET COUNT 380 10^3/uL (130-400); WHITE BLOOD COUNT 9.8 10^3/uL (4.3-11.0)
[2022-10-22 11:34] LABS: ALBUMIN 4.6 GM/DL (3.2-4.5); CHLORIDE 98 MMOL/L (98-107); POTASSIUM 3.8 MMOL/L (3.6-5.0); SODIUM 136 MMOL/L (135-145)
[2022-10-22 11:36] LABS: CALCIUM 10.2 MG/DL (8.5-10.1)
[2022-10-22 11:37] LABS: GLUCOSE 226 MG/DL (70-105); TOTAL PROTEIN 8.9 GM/DL (6.4-8.2)
[2022-10-22 11:38] LABS: CARBON DIOXIDE 24 MMOL/L (21-32)
[2022-10-22 11:40] LABS: ALKALINE PHOSPHATASE 88 U/L (40-136); CREATININE SERUM 0.89 MG/DL (0.60-1.30); GFR ESTIMATED 93
[2022-10-22 11:42] LABS: BUN/CREATININE RATIO 13
--- NOTE | 2022-10-22 11:42 | ED General ---
General Chief Complaint: Fever-Adult/Adol Stated Complaint: HEADACHE, FEVER N/V Nursing Triage Note: PT AMB TO RM 9 WITH COMPLAINT OF FEVER, NAUSEA, VOMITING, ABD PAIN, BACK PAIN. STATES LAST TOOK IBUPROFEN AND ZOFRAN AT 4AM. STATES SHE HAS BEEN FEELING BAD FOR A FEW MONTHS, AND HAD A LOW TSH LEVEL. STATES FEVER, N/V ABD PAIN, STARTED WITHIN THE LAST FEW DAYS. PT IS TYPE 1 DIABETIC, STATES HIGHEST BLOOD GLUCOSE SHE HAS HAD WAS 284. Source of Information: Patient Exam Limitations: No Limitations History of Present Illness Date Seen by Provider: Oct 22, 2022 Time Seen by Provider: 11:14 Initial Comments 22-year-old female presents to the ER with reports of fevers and chills, headache, body aches, upper abdominal pain, back pain, nausea and vomiting starting last , 10/13/2022. Patient reports she started having a cough yesterday. Denies diarrhea and dysuria. Last bowel movement was today and normal. Patient reports she has also generally not felt well for the last month or so due to her Graves' disease. Other past medical history includes type 1 diabetes. Allergies and Home Medications Allergies Coded Allergies: fish derived (Verified Allergy, Intermediate, swelling/hives, 09/15/18) Patient Home Medication List Home Medication List Reviewed: Yes Amoxicillin (Amoxicillin) 500 Mg Capsule, 500 MG PO TID Prescribed by: JOCELYNE SEN on 04/12/22 0529 Cefpodoxime Proxetil (Cefpodoxime Proxetil) 200 Mg Tablet, 200 MG PO BID Prescribed by: Lyssa Jones on 10/22/22 1445 Diphenhydramine HCl (Benadryl Allergy) 25 Mg Tablet, 25-50 MG PO Q8H PRN for ALLERGY SYMPTOMS, (Reported) Entered as Reported by: DEMOND TAVAREZ on 11/02/21 1525 Ibuprofen (Ibuprofen) 200 Mg Tablet, 400 MG PO Q6H PRN for PAIN-MILD, (Reported) Entered as Reported by: DEMOND TAVAREZ on 09/17/18 0850 Insulin Aspart (Insulin Aspart Flexpen) 100 Unit/Ml (3 Ml) Insuln.pen, 16 UNITS SC AC, (Reported) Entered as Reported by: DEMOND TAVAREZ on 01/28/21 1050 Insulin Glargine,Hum.rec.anlog (Lantus Solostar) 100 Unit/Ml (3 Ml) Insuln.pen, 25 UNIT SQ DAILY, (Reported) Entered as Reported by: DEMOND TAVAREZ on 01/28/21 1050 Methylphenidate HCl (Methylphenidate HCl ER) 20 Mg Cpbp.30.70, 20 MG PO MO,TU,WE,TH,FR, (Reported) Entered as Reported by: DEMOND TAVAREZ on 11/02/21 1525 Valacyclovir HCl (Valacyclovir) 500 Mg Tablet, 500 MG PO DAILY, (Reported) Entered as Reported by: DEMOND TAVAREZ on 01/28/21 1050 Review of Systems Review of Systems Constitutional: see HPI Past Bqgbqsv-Axkyke-Exprgz Hx Patient Social History Tobacco Use?: No Use of E-Cig and/or Vaping dev: No Substance use?: No Alcohol Use?: No Pt feels they are or have been: No Immunizations Up To Date PED Vaccines UTD: Yes First/Initial COVID19 Vaccinat: 05/03 Second COVID19 Vaccination Caleb: 05/03 Third COVID19 Vaccination Date: 05/03 Seasonal Allergies Seasonal Allergies: Yes Past Medical History Surgery/Hospitalization HX: HSV, GRAVES DISEASE, IDDM Surgeries: Yes (RIGHT KNEE) Orthopedic Respiratory: No Cardiac: No Neurological: No Female Reproductive Disorders: Denies Sexually Transmitted Disease: Yes (Genital HSV) Genitourinary: No Gastrointestinal: No Musculoskeletal: No Endocrine: Yes Diabetes, Insulin dep HEENT: No Cancer: No Psychosocial: Yes Anxiety, Depression Integumentary: No Blood Disorders: No Family Medical History Heart Disease, Diabetes, Hypertension Mother has hypothyroidism Father has hyperthyroidism sister has hypothyroidism,depression, anxiety half brother peanut and shellfish allergries Physical Exam-Suspected Sepsis Physical Exam Vital Signs Vital Signs - First Documented 10/22/22 10:31 Temp 38.4 Pulse 137 Resp 22 B/P (MAP) 144/86 (105) Pulse Ox 100 O2 Delivery Room Air Capillary Refill : Less Than 3 Seconds Blood Pressure Mean: 105 Height, Weight, BMI Height: 5'2.00" Weight: 204lbs. 1.0oz. [id number]; 32.00 BMI Method:Stated General Appearance: WD/WN, Mild Distress Neck: Normal Inspection, Supple Respiratory: Lungs Clear, Normal Breath Sounds, No Accessory Muscle Use, No Respiratory Distress Cardiovascular: Tachycardia Gastrointestinal: Normal Bowel Sounds, Non Tender, Soft Extremity: Normal Inspection, Normal Range of Motion Neurologic/Psychiatric: Alert, Normal Mood/Affect Skin: normal color, warm/dry Focused Exam Lactate Level 10/22/22 10:47: Lactic Acid Level 1.24 Lactic Acid Level Progress/Results/Core Measures Suspected Sepsis SIRS Temperature: Pulse: 137 Respiratory Rate: 22 Laboratory Tests 10/22/22 10:47: White Blood Count 9.8 Blood Pressure 144 /86 Mean: 105 10/22/22 10:47: Lactic Acid Level 1.24 Laboratory Tests 10/22/22 10:47: Creatinine 0.89, Platelet Count 380, Total Bilirubin 1.0 Results/Orders Lab Results Laboratory Tests Test 10/22/22 10:47 10/22/22 10:54 Range/Units White Blood Count 9.8 4.3-11.0 10^3/uL Red Blood Count 5.20 H 3.80-5.11 10^6/uL Hemoglobin 15.5 11.5-16.0 g/dL Hematocrit 46 35-52 % Mean Corpuscular Volume 89 80-99 fL Mean Corpuscular Hemoglobin 30 25-34 pg Mean Corpuscular Hemoglobin Concent 34 32-36 g/dL Red Cell Distribution Width 11.9 10.0-14.5 % Platelet Count 380 130-400 10^3/uL Mean Platelet Volume 9.9 9.0-12.2 fL Immature Granulocyte % (Auto) 0 % Neutrophils (%) (Auto) 76 H 42-75 % Lymphocytes (%) (Auto) 11 L 12-44 % Monocytes (%) (Auto) 13 H 0-12 % Eosinophils (%) (Auto) 0 0-10 % Basophils (%) (Auto) 1 0-10 % Neutrophils # (Auto) 7.4 1.8-7.8 10^3/uL Lymphocytes # (Auto) 1.1 1.0-4.0 10^3/uL Monocytes # (Auto) 1.2 H 0.0-1.0 10^3/uL Eosinophils # (Auto) 0.0 0.0-0.3 10^3/uL Basophils # (Auto) 0.1 0.0-0.1 10^3/uL Immature Granulocyte # (Auto) 0.0 0.0-0.1 10^3/uL Urine Color YELLOW Urine Clarity CLEAR Urine pH 5.5 5-9 Urine Specific [place] 1.015 L 1.016-1.022 Urine Protein 1+ H NEGATIVE Urine Glucose (UA) NEGATIVE NEGATIVE Urine Ketones 3+ H NEGATIVE Urine Nitrite POSITIVE H NEGATIVE Urine Bilirubin NEGATIVE NEGATIVE Urine Urobilinogen 0.2 < = 1.0 MG/DL Urine Leukocyte Esterase 1+ H NEGATIVE Urine RBC (Auto) 1+ H NEGATIVE Urine RBC 0-2 /HPF Urine WBC 10-25 H /HPF Urine Squamous Epithelial Cells 10-25 H /HPF Urine Crystals NONE /LPF Urine Bacteria LARGE H /HPF Urine Casts NONE /LPF Urine Mucus NEGATIVE /LPF Urine Culture Indicated CULTURE PENDING Sodium Level 136 135-145 MMOL/L Potassium Level 3.8 3.6-5.0 MMOL/L Chloride Level 98 98-107 MMOL/L Carbon Dioxide Level 24 21-32 MMOL/L Anion Gap 14 5-14 MMOL/L Blood Urea Nitrogen 12 7-18 MG/DL Creatinine 0.89 0.60-1.30 MG/DL Estimat Glomerular Filtration Rate 93 BUN/Creatinine Ratio 13 Glucose Level 226 H 70-105 MG/DL Lactic Acid Level 1.24 0.50-2.00 MMOL/L Calcium Level 10.2 H 8.5-10.1 MG/DL Corrected Calcium 8.5-10.1 MG/DL Total Bilirubin 1.0 0.1-1.0 MG/DL Aspartate Amino Transf (AST/SGOT) 14 5-34 U/L Alanine Aminotransferase (ALT/SGPT) 12 0-55 U/L Alkaline Phosphatase 88 40-136 U/L Total Protein 8.9 H 6.4-8.2 GM/DL Albumin 4.6 H 3.2-4.5 GM/DL Thyroid Stimulating Hormone (TSH) 0.07 L 0.35-4.94 UIU/ML Free Thyroxine 1.09 0.70-1.48 NG/DL Influenza Type A (RT-PCR) Not Detected Not Detecte Influenza Type B (RT-PCR) Not Detected Not Detecte SARS-CoV-2 RNA (RT-PCR) Not Detected Not Detecte Glucometer 215 H 70-110 MG/DL My Orders Orders - LYSSA PINEDA MAILER Cbc With Automated Diff (10/22/22 11:22) Comprehensive Metabolic Panel (10/22/22 11:22) Blood Culture (10/22/22 11:22) Sputum Culture (10/22/22 11:22) Urinalysis (10/22/22 11:22) Urine Culture (10/22/22 11:22) Chest 1 View, Ap/Pa Only (10/22/22 11:22) Ed Iv/Invasive Line Start (10/22/22 11:22) Vital Signs Adult Sepsis Patie Q15M (10/22/22 11:22) O2 (10/22/22 11:22) Remove Rings In Anticipation O (10/22/22 11:22) Lactic Acid Analyzer (10/22/22 11:22) Ns Iv 1000 Ml (Ns Iv 1000 Ml) (10/22/22 11:30) Covid 19 Inhouse Test (10/22/22 11:22) Influenza A And B By Pcr (10/22/22 11:22) Thyroid Stimulating Hormone (10/22/22 11:22) Ondansetron Injection (Ondansetron Inj (10/22/22 11:45) Acetaminophen Tablet (Acetaminophen Ta (10/22/22 11:45) Free T4 (Free Thyroxine) (10/22/22 12:48) Ceftriaxone Iv/Im (Ceftriaxone Iv/Im) (10/22/22 14:00) Medications Given in ED Current Medications Medications Dose Ordered Sig/Fatuma Route Start Time Stop Time Status Last Admin Dose Admin Acetaminophen 1,000 mg ONCE ONCE PO 10/22/22 11:45 10/22/22 11:46 DC 10/22/22 12:22 1,000 MG Ceftriaxone Sodium 1000 mg/ Sodium Chloride 50 ml @ 100 mls/hr ONCE ONCE IV 10/22/22 14:00 10/22/22 14:29 DC 10/22/22 14:39 100 MLS/HR Ondansetron HCl 4 mg ONCE ONCE IVP 10/22/22 11:45 10/22/22 11:46 DC 10/22/22 12:22 4 MG Vital Signs/I&O 10/22/22 10/22/22 10:31 15:13 Temp 38.4 Pulse 137 Resp 22 B/P (MAP) 144/86 (105) 123/81 Pulse Ox 100 O2 Delivery Room Air Capillary Refill : Less Than 3 Seconds Blood Pressure Mean: 105 Point of Care Testing Finger Stick Blood Glucose: 215 Progress Note : Progress Note Patient seen and evaluated, resting in bed, mild distress. Based on exam and symptoms, septic work-up initiated including CBC, CMP cultures x2, lactic acid, COVID and flu swab chest x-ray, UA, urine . IV fluids ordered and Zofran. 1443 Labs and imaging reviewed. CBC shows slightly elevated RBC 5.2. White blood cell normal. CMP grossly normal. Glucose elevated 226. Lactic acid normal 1.24. TSH low 0.07. Free T4 normal 1.09. COVID and flu negative. Urinalysis shows 3+ ketones, positive nitrites, 1+ leukocytes, 1+ RBCs, 10-25 white blood cells, 10-25 squamous epithelial cells, and large bacteria. Chest x-ray shows no acute cardiopulmonary process. Rocephin given for pyelonephritis. Patient's heart rate has improved to the low 100s after 2 L of IV fluids. Patient reports she is feeling better. Results discussed with patient. Will discharge with prescription for antibiotic for pyelonephritis. Discharge instructions and return precautions provided. Departure Impression Primary Impression: Pyelonephritis Disposition: 01 HOME, SELF-CARE Condition: Stable Departure-Patient Inst. Decision time for Depature: 14:43 Referrals: PENELOPE JOYCE DO (PCP/Family) Primary Care Physician Patient Instructions: Kidney Infection Add. Discharge Instructions: Complete full course of antibiotic as prescribed. Make sure you are drinking plenty of water. Take your currently prescribed Zofran as needed for nausea and vomiting. Return for severe pain, inability to urinate, recurrent vomiting, or any other new, concerning, or worsening symptoms. All discharge instructions reviewed with patient and/or family. Voiced understanding. Scripts Cefpodoxime Proxetil (Cefpodoxime Proxetil) 200 Mg Tablet 200 MG PO BID for 14 Days, #28 TAB 0 Refills Prov: LYSSA PINEDA APRN 10/22/22 LYSSA PINEDA APRN Oct 22, 2022 11:42
[2022-10-22 11:43] LABS: ALANINE AMINOTRANSFERASE 12 U/L (0-55)
[2022-10-22] MEDS ORDERED: ACETAMINOPHEN 500 MG TABLET PO ONE (11:45)
[2022-10-22] MEDS ORDERED: ONDANSETRON INJECTION 4 MG/2 ML (SDV) IVP ONE (11:45)
[2022-10-22 11:56] LABS: CLARITY,URINE CLEAR; COLOR,URINE YELLOW; GLUCOSE, URINE (UA) NEGATIVE (NEGATIVE); PH,URINE 5.5 (5-9); PROTEIN,URINE 1+ (NEGATIVE)
[2022-10-22 11:57] LABS: BACTERIA,URINE LARGE /HPF; BILIRUBIN,URINE NEGATIVE (NEGATIVE); KETONES,URINE 3+ (NEGATIVE); LEUKOCYTE ESTERASE ,URINE 1+ (NEGATIVE); NITRITE,URINE POSITIVE (NEGATIVE); RBC,URINE 0-2 /HPF
--- NOTE | 2022-10-22 12:19 | Diagnostic Imaging Report ---
INDICATION: Fever. Comparison is made with prior examination of 11/02/2021. FINDINGS: The heart size, mediastinal configuration, and pulmonary vascularity are within normal limits. There is no pleural effusion, pneumothorax, or pneumonia. The osseous structures are unremarkable. IMPRESSION: No acute cardiopulmonary abnormality. Dictated by: Dictated on workstation # [id number]
[2022-10-22] MEDS: NS IV 1000 ML 1,000 ML IV SCH ×2 (12:22→13:43)
[2022-10-22] MEDS ORDERED: cefTRIAXone IV/IM 1,000 MG in NS (IVPB) 50 ML 50 ML IV ONE (14:00)
[2022-10-22] MEDS ORDERED: CEFP200T2 PO (14:45)
[2022-10-22 15:13] VITALS: BP 123/81
== END 2022-10-22 15:13 | disposition home or self-care (01) ==
LOC: EDUNIT# 10:19 → ER 10:21
DX: N12 Tubulo-interstitial nephritis, not specified as acute or chronic (principal); E11.9 Type 2 diabetes mellitus without complications; Z79.4 Long term (current) use of insulin; Z20.822 Contact with and (suspected) exposure to COVID-19
CPT/HCPCS: 36415; 71045; 80053; 81000; 82947; 83605; 84439; 84443; 84703; 85025; 87040; 87077; 87088; 87186; 87636